=== PATIENT | male | born 1945 | race Caucasian/White ===

== ENCOUNTER → 2016-09-13 | Outpatient (CLI) | payer MEDICARE, OTHER ==
[2016-09-13 15:11] LABS: ABSOLUTE BASOPHILS # (AUTO) 0.1 10^3/uL (0.0-0.2); ABSOLUTE EOSINOPHILS # (AUTO) 0.6 10^3/uL (0.0-0.6); ABSOLUTE LYMPHOCYTES (AUTO) 1.6 10^3/uL (0.5-4.7); ABSOLUTE MONOCYTES (AUTO) 0.6 10^3/uL (0.1-1.4); ABSOLUTE NEUT (AUTO) 3.7 10^3/uL (1.7-8.2); BASOPHILS % (AUTO) 0.9 % (0-2); EOSINOPHILS % (AUTO) 8.4 % (0-6); HEMATOCRIT 28.8 % (37.9-51.0); HEMOGLOBIN 9.3 g/dL (13.5-17.0); HGB HCT DIFFERENCE -0.9; LYMPHOCYTES % (AUTO) 24.9 % (13-45); MEAN CORPUSCULAR HEMOGLOBIN 29.1 pg (27.0-33.4); MEAN CORPUSCULAR HGB CONC 32.2 g/dL (32.0-36.0); MEAN CORPUSCULAR VOLUME 90 fl (80-97); MONOCYTES % (AUTO) 9.5 % (3-13); RED BLOOD COUNT 3.18 10^6/uL (4.35-5.55); RED CELL DISTRIBUTION WIDTH 14.9 % (11.5-14.0); SEGMENTED NEUTROPHILS % (AUTO) 56.3 % (42-78); WHITE BLOOD COUNT 6.6 10^3/uL (4.0-10.5)
[2016-09-13 15:26] LABS: ANION GAP 10 (5-19); BLOOD UREA NITROGEN 28 mg/dL (7-20); CALCIUM 9.5 mg/dL (8.4-10.2); CARBON DIOXIDE 25 mmol/L (22-30); CHLORIDE 105 mmol/L (98-107); GLUCOSE 98 mg/dL (75-110); POTASSIUM 5.2 mmol/L (3.6-5.0); SODIUM 139.6 mmol/L (137-145)
[2016-09-15 12:38] LABS: CREATININE URINE 107.3 mg/dL (Not Estab.)
== END ==
LOC: OD 14:18
PROVIDERS: ATTEND Internal Medicine Nephrology
DX: N18.4 Chronic kidney disease, stage 4 (severe) (principal); D63.1 Anemia in chronic kidney disease; N25.81 Secondary hyperparathyroidism of renal origin
CPT/HCPCS: 36415; 80048; 82570; 83970; 84156; 85025

== ENCOUNTER → 2017-01-06 | Outpatient (CLI) | payer MEDICARE, OTHER ==
[2017-01-06 17:43] LABS: ABSOLUTE BASOPHILS # (AUTO) 0.1 10^3/uL (0.0-0.2); ABSOLUTE EOSINOPHILS # (AUTO) 0.6 10^3/uL (0.0-0.6); ABSOLUTE LYMPHOCYTES (AUTO) 1.2 10^3/uL (0.5-4.7); ABSOLUTE MONOCYTES (AUTO) 0.7 10^3/uL (0.1-1.4); ABSOLUTE NEUT (AUTO) 5.7 10^3/uL (1.7-8.2); BASOPHILS % (AUTO) 0.7 % (0-2); EOSINOPHILS % (AUTO) 6.8 % (0-6); HEMATOCRIT 35.1 % (37.9-51.0); HEMOGLOBIN 11.4 g/dL (13.5-17.0); HGB HCT DIFFERENCE -0.9; MEAN CORPUSCULAR HEMOGLOBIN 28.7 pg (27.0-33.4); MEAN CORPUSCULAR HGB CONC 32.6 g/dL (32.0-36.0); MEAN CORPUSCULAR VOLUME 88 fl (80-97); MONOCYTES % (AUTO) 8.1 % (3-13); RED BLOOD COUNT 3.99 10^6/uL (4.35-5.55); RED CELL DISTRIBUTION WIDTH 13.4 % (11.5-14.0); SEGMENTED NEUTROPHILS % (AUTO) 69.4 % (42-78); WHITE BLOOD COUNT 8.2 10^3/uL (4.0-10.5)
[2017-01-06 17:57] LABS: ANION GAP 13 (5-19); BLOOD UREA NITROGEN 39 mg/dL (7-20); CALCIUM 8.9 mg/dL (8.4-10.2); CARBON DIOXIDE 26 mmol/L (22-30); CHLORIDE 99 mmol/L (98-107); GLUCOSE 95 mg/dL (75-110); POTASSIUM 4.1 mmol/L (3.6-5.0); SODIUM 137.5 mmol/L (137-145)
== END ==
LOC: OD 16:02
PROVIDERS: ATTEND Internal Medicine Nephrology
DX: N18.4 Chronic kidney disease, stage 4 (severe) (principal); D63.1 Anemia in chronic kidney disease; R80.9 Proteinuria, unspecified
CPT/HCPCS: 36415; 80048; 85025

== ENCOUNTER → 2017-01-13 | Outpatient (CLI) | payer MEDICARE, OTHER ==
[2017-01-13 15:25] LABS: ANION GAP 14 (5-19); BLOOD UREA NITROGEN 31 mg/dL (7-20); CALCIUM 9.3 mg/dL (8.4-10.2); CARBON DIOXIDE 26 mmol/L (22-30); CHLORIDE 102 mmol/L (98-107); CREATININE RESULT 5.21 mg/dL (0.52-1.25); GLUCOSE 107 mg/dL (75-110); POTASSIUM 4.8 mmol/L (3.6-5.0); SODIUM 142.2 mmol/L (137-145)
== END ==
LOC: OD 14:01
PROVIDERS: ATTEND Internal Medicine Nephrology
DX: N18.5 Chronic kidney disease, stage 5 (principal); E87.5 Hyperkalemia; N18.6 End stage renal disease
CPT/HCPCS: 36415; 80048; 86704; 86706; 86803; 86804; 87340

== ENCOUNTER 2017-01-17 09:53 | Day surgery (SDC) | payer MEDICARE, OTHER ==
--- NOTE | 2017-01-17 10:22 | PDOC H&P ---
General Chief Complaint: This patient requires hemodialysis for end-stage renal disease. He is therefore referred for insertion of a permacatheter. - Current Medications/Allergies Home Medications: Aspirin/Dipyridamole [Aggrenox 25 mg/200 mg Capsule SA] 1 cap.sr PO DAILY Cholecalciferol (Vitamin D3) [Vitamin D3 1000 Unit Tablet] 1,000 unit PO ASDIR PRN 05/11/13 Esomeprazole Magnesium [Nexium] 40 mg PO DAILY 05/11/13 Ezetimibe [Zetia 10 Mg Tablet] 10 mg PO DAILY 05/11/13 Ferrous Sulfate [Feosol] 325 mg PO DAILY 02/24/15 Multivit with Calcium,Iron,Min [Multiple Vitamins For Women] 1 each PO DAILY Telmisartan/Hydrochlorothiazid [Micardis HCT 40-12.5 mg Tablet] 1 each PO DAILY 02/24/15 Allergies/Adverse Reactions: aspirin [Aspirin] Allergy (Intermediate, Verified 02/24/15 12:22) ITCHING atorvastatin calcium [From Lipitor] Adverse Reaction (Intermediate, Verified 12:22) MUSCLE CRAMPS, ITCHING rosuvastatin calcium [From Crestor] Adverse Reaction (Intermediate, Verified 12:22) MUSCLE CRAMPS, ITCHING Past Medical History Cardiac Medical History: Reports: Hyperlipidema, Hypertension Denies: Coronary Artery Disease, Myocardial Infarction Pulmonary Medical History: Reports: Chronic Obstructive Pulmonary Disease (COPD) Denies: Asthma, Bronchitis, Pneumonia Neurological Medical History: Denies: Seizures Musculoskeltal Medical History: Denies: Arthritis Hematology: Denies: Anemia Family History Family History: CAD Parental Family History Reviewed: No Children Family History Reviewed: No Sibling(s) Family History Reviewed.: No Social History Smoking Status: Former Smoker Frequency of Alcohol Use: None Hx Recreational Drug Use: No Hx Prescription Drug Abuse: No Physical Exam Vital Signs: Intake & Output 01/16/17 01/17/17 01/18/17 06:59 06:59 06:59 Weight 78.471 kg Additional comments: Constitutional: Well-developed well-nourished gentleman. No apparent acute distress. Eyes: Mucous membranes pink and moist, pupils equal and reactive to light. Conjunctiva normal. Senilis noted. ENT: Hearing grossly normal. External pinna normal to inspection. Teeth missing, edentulous. Tongue normal to inspection. Chest: Normal to inspection. Cardiac: Heart sounds 1 and 2 normal, no murmurs. No carotid bruit. Respiratory breath sounds are present bilaterally, normal. Normal respiratory effort. Skin: Normal to inspection. No ulcers, normal turgor. Psychiatric: Judgment, memory, insight seem normal. Mood is pleasant and appropriate. Extremities: Upper extremities show normal range of movement. Pulses present noted to the radial arteries. Capillary refill normal. No cyanosis noted. No muscle wasting noted. . Impression/Plan Impression: 1 end-stage renal disease requiring hemodialysis. 2. COPD. 3. Hypertension.
[2017-01-17] MEDS ORDERED: BACITRACIN INJ 50,000 UNIT VIAL IR PRN (10:33)
[2017-01-17] MEDS ORDERED: MIDAZOLAM 2 MG/2 ML INJ ONE (10:35)
[2017-01-17] MEDS ORDERED: FENTANYL CITRATE INJ/PF 100 MCG/2 ML AMPUL ONE (10:35)
[2017-01-17] MEDS ORDERED: OXYCODONE-ACETAMINOPHEN 5-325 MG TABLET PO PRN (10:39)
[2017-01-17] MEDS ORDERED: DIAZEPAM 5 MG TABLET PO PRN (10:40)
[2017-01-17] MEDS ORDERED: CEFAZOLIN 1 GM/D5W RTU 1 GM/50 ML RTUPB IV ONE (10:52)
[2017-01-17 10:56] LABS: HEMATOCRIT 35.4 % (37.9-51.0); HEMOGLOBIN 11.3 g/dL (13.5-17.0); HGB HCT DIFFERENCE -1.5; MEAN CORPUSCULAR HEMOGLOBIN 28.4 pg (27.0-33.4); MEAN CORPUSCULAR VOLUME 89 fl (80-97); RED CELL DISTRIBUTION WIDTH 13.8 % (11.5-14.0); WHITE BLOOD COUNT 8.9 10^3/uL (4.0-10.5)
--- NOTE | 2017-01-17 11:02 | RADIOLOGY REPORT (SQ) ---
EXAM DESCRIPTION: CHEST SINGLE VIEW COMPLETED DATE/TIME: 01/17/2017 10:51 am REASON FOR STUDY: PRE OP- PACU 12 COMPARISON: 05/11/2013 EXAM PARAMETERS: NUMBER OF VIEWS: One view. TECHNIQUE: Single frontal radiographic view of the chest acquired. RADIATION DOSE: NA LIMITATIONS: None. FINDINGS: LUNGS AND PLEURA: No opacities, masses or pneumothorax. No pleural effusion. MEDIASTINUM AND HILAR STRUCTURES: No masses. Contour normal. HEART AND VASCULAR STRUCTURES: Heart normal in size. Normal vasculature. BONES: No acute findings. HARDWARE: None in the chest. OTHER: No other significant finding. IMPRESSION: NO ACUTE RADIOGRAPHIC FINDING IN THE CHEST. TECHNICAL DOCUMENTATION: JOB ID: [id number]
[2017-01-17 11:11] LABS: ANION GAP 14 (5-19); BLOOD UREA NITROGEN 32 mg/dL (7-20); CALCIUM 8.9 mg/dL (8.4-10.2); CARBON DIOXIDE 23 mmol/L (22-30); CHLORIDE 104 mmol/L (98-107); CREATININE RESULT 5.11 mg/dL (0.52-1.25); GLUCOSE 97 mg/dL (75-110); POTASSIUM 4.7 mmol/L (3.6-5.0); SODIUM 140.6 mmol/L (137-145)
[2017-01-17] MEDS ORDERED: LIDOCAINE 0.5% INJ-PF (5 MG/ML) 50 ML SDV ONE (11:22)
--- NOTE | 2017-01-17 12:44 | EKG REPORT ---
SEVERITY:- BORDERLINE ECG - SINUS RHYTHM BORDERLINE T WAVE ABNORMALITIES : Confirmed by: Liana Knowles MD 17-Jan-2017 12:43:39
--- NOTE | 2017-01-17 12:49 | PDOC DISCHARGE SUMMARY ---
Discharge Summary (SDC) - Discharge Final Diagnosis: #1 end-stage renal disease. 2. COPD. 3. Hypertension. Date of Surgery: 01/17/17 Discharge Date: 01/17/17 Condition: Fair Treatment or Instructions: Discharge home [after recovery per ASU criteria]. Diet , [renal],as tolerated, when fully awake advance as tolerated. Activities within moderation encouraged. Follow up in my office by appointment in about [1 week]. Call for appointment. Leave wounds [covered], [keep clean and dry, until office visit in 1 week]. Hold of on school/work [until evaluation in office]. May shower [in 48 hrs], [try to keep operated area as dry as possible]. Discharge Diet: Other (Comments) - Renal Respiratory Treatments at Home: Deep Breathing/Coughing Discharge Activity: Activity As Tolerated Report the Following to Your Physician Immediately: Shortness of Breath, Unusual Bleeding
--- NOTE | 2017-01-17 12:52 | Operative Report ---
Operative Report DATE OF SURGERY: 01/17/17 PREOPERATIVE DIAGNOSIS: #1 end-stage renal disease. 2. COPD. 3. Hypertension. POSTOPERATIVE DIAGNOSIS: #1 end-stage renal disease. Post PermCath insertion. 2. COPD. 3. Hypertension. OPERATION: 1. Ultrasound evaluation and real-time access in the right internal jugular vein. 2. Port-A-Cath insertion via real-time axis in the right internal jugular vein. 3. Angiogram and interpretation SURGEON: JAIMEE MCCONNELL SALAD CHEF: None ANESTHESIA: Moderate Sedation TISSUE REMOVED OR ALTERED: Not applicable. COMPLICATIONS: None ESTIMATED BLOOD LOSS: 2 mL. INTRAOPERATIVE FINDINGS: An approximately 1.5 cm diameter internal jugular vein. Satisfactory to support PermCath catheter. Good position of the catheter with the tip down in the right atrium. Easy egress of blood and ingress of heparinized solution through both ports. The right atrium was somewhat on the small side. smooth flow of contrast through the right atrium, ventricle and pulmonary outflow tract noted. PROCEDURE: After obtaining informed consent, the patient was taken to the [facility] and positioned supine. The right neck and chest were prepared with chlorhexidine and draped out with sterile linen. After the " universal timeout", in which it was verified that the patient continued to receive antibiotic, the procedure commenced. A steriley sheathed ultrasound probe was used to evaluate the right internal jugular vein. Local anesthesia was infiltrated adjacent to the probe. Access into the right internal jugular vein was obtained using a micropuncture needle, followed by micropuncture wire and then a micropuncture catheter. This was followed by introduction of a 0.035 guidewire the tip of which was placed down into the inferior vena cava . A 23 cm long split catheter was now positioned over the chest and an exit site marked and locally anesthetized ,the catheter was placed between the 2 incisions. Proximally, the catheter was now positioned using a peel-away sheath, after dilation. Easy ingress of heparinized solution and egress of blood obtained through both ports. A completion angiogram was done by injecting contrast. The findings were as dictated. The neck incision was now closed using interrupted 3-0 PDS to the subcutaneous tissues, the catheter was anchored at the exit site using 3- 0 PDS. A Biopatch device was now placed adjacent to the catheter. Dressings were applied and the procedure concluded. Exposure time: 0.5 minutes. Exposure: 0.36 mcg/cm.. Contrast amount: 5 mL of Hokofe-T-170 low osmolality. Copies of the dictated operative report for Dr. Jaimee Winter MD.concluded. Copies of the dictated operative report for Dr. Jaimee Winter MD.
--- NOTE | 2017-01-17 13:45 | RADIOLOGY REPORT (SQ) ---
EXAM DESCRIPTION: TUNNELED CENTRAL LINE; GUIDANCE FLUOROSCOPIC COMPLETED DATE/TIME: 01/17/2017 1:22 pm REASON FOR STUDY: N18.5 N18.5 CHRONIC KIDNEY DISEASE, STAGE 5 E87.5 HYPERKALEMIA COMPARISON: AP chest 01/25/2017 FLUOROSCOPY TIME: 0.5 minutes 1 series of digital cine images saved to PACS. TECHNIQUE: Intra-operative images acquired during surgical procedure to evaluate progress. NUMBER OF IMAGES: Cine fluoroscopic images. LIMITATIONS: None. FINDINGS: Intra procedural imaging and fluoro during central line placement by Dr. Winter. Please see his operative report for further detail IMPRESSION: Intra procedural imaging and fluoro COMMENT: Quality ID [id number]: Final reports for procedures using fluoroscopy that document radiation exp osure indices, or exposure time and number of fluorographic images (if radiation exposure indices are not available) Please consult full operative report of the attending physician for description of the procedure. TECHNICAL DOCUMENTATION: JOB ID: [id number] [employer]- All Rights Reserved
--- NOTE | 2017-01-17 13:45 | RADIOLOGY REPORT (SQ) ---
EXAM DESCRIPTION: TUNNELED CENTRAL LINE; GUIDANCE FLUOROSCOPIC COMPLETED DATE/TIME: 01/17/2017 1:22 pm REASON FOR STUDY: N18.5 N18.5 CHRONIC KIDNEY DISEASE, STAGE 5 E87.5 HYPERKALEMIA COMPARISON: AP chest 01/25/2017 FLUOROSCOPY TIME: 0.5 minutes 1 series of digital cine images saved to PACS. TECHNIQUE: Intra-operative images acquired during surgical procedure to evaluate progress. NUMBER OF IMAGES: Cine fluoroscopic images. LIMITATIONS: None. FINDINGS: Intra procedural imaging and fluoro during central line placement by Dr. Winter. Please see his operative report for further detail IMPRESSION: Intra procedural imaging and fluoro COMMENT: Quality ID 145: Final reports for procedures using fluoroscopy that document radiation exp osure indices, or exposure time and number of fluorographic images (if radiation exposure indices are not available) Please consult full operative report of the attending physician for description of the procedure. TECHNICAL DOCUMENTATION: JOB ID: [id number] [employer]- All Rights Reserved
[2017-01-17] MEDS ORDERED: ONDANSETRON 4 MG TAB.RAPDIS ONE (14:23)
--- NOTE | 2017-01-17 14:57 | RADIOLOGY REPORT (SQ) ---
EXAM DESCRIPTION: CHEST SINGLE VIEW COMPLETED DATE/TIME: 01/17/2017 12:57 pm REASON FOR STUDY: s/p permanent cath insertion COMPARISON: AP chest 01/17/2017, 05/11/2013 EXAM PARAMETERS: NUMBER OF VIEWS: One view. TECHNIQUE: Single frontal radiographic view of the chest acquired. RADIATION DOSE: NA LIMITATIONS: None. FINDINGS: LUNGS AND PLEURA: No opacities, masses or pneumothorax. No pleural effusion. MEDIASTINUM AND HILAR STRUCTURES: No masses. Contour normal. HEART AND VASCULAR STRUCTURES: Heart normal in size. Normal vasculature. BONES: No acute findings. HARDWARE: New right-sided central venous dialysis catheter with the tip in the right atrium. No pneu mothorax. OTHER: No other significant finding. IMPRESSION: New right-sided central venous dialysis catheter with the tip in the right atrium. No p neumothorax. TECHNICAL DOCUMENTATION: JOB ID: [id number]
[2017-01-17] MEDS ORDERED: ONDANSETRON 4 MG TAB.RAPDIS PO ONE (15:30)
[2017-01-17 16:51] VITALS: BP 168/103
== END 2017-01-17 15:00 | disposition home or self-care (01) ==
LOC: CCL 09:53
PROVIDERS: ATTEND Surgery
PROC: 05HM33Z Insertion of Infusion Device into Right Internal Jugular Vein, Percutaneous Approach (ICD-10-PCS; principal; 2017-01-17)
DX: I12.0 Hypertensive chronic kidney disease with stage 5 chronic kidney disease or end stage renal disease (principal); N18.6 End stage renal disease; Z99.2 Dependence on renal dialysis; J44.9 Chronic obstructive pulmonary disease, unspecified; E78.5 Hyperlipidemia, unspecified; Z79.82 Long term (current) use of aspirin; Z79.899 Other long term (current) drug therapy; Z88.6 Allergy status to analgesic agent; Z88.8 Allergy status to other drugs, medicaments and biological substances; Z87.891 Personal history of nicotine dependence
CPT/HCPCS: 36415; 85027; 80048; 36558; 76937; 77001; 71010; 93005; 93010; C1752; Q9967; J2250; J3490 ×2; J0690; A9270 ×3; J3010; J1644; S0119

== ENCOUNTER 2017-02-02 09:16 | Day surgery (SDC) | payer MEDICARE, OTHER ==
[2017-02-02 09:56] LABS: HEMATOCRIT 33.9 % (37.9-51.0); HEMOGLOBIN 11.1 g/dL (13.5-17.0); HGB HCT DIFFERENCE -0.6; MEAN CORPUSCULAR HEMOGLOBIN 28.7 pg (27.0-33.4); MEAN CORPUSCULAR HGB CONC 32.7 g/dL (32.0-36.0); MEAN CORPUSCULAR VOLUME 88 fl (80-97); RED BLOOD COUNT 3.85 10^6/uL (4.35-5.55); RED CELL DISTRIBUTION WIDTH 14.7 % (11.5-14.0); WHITE BLOOD COUNT 10.1 10^3/uL (4.0-10.5)
--- NOTE | 2017-02-02 10:08 | RADIOLOGY REPORT (SQ) ---
EXAM DESCRIPTION: CHEST SINGLE VIEW COMPLETED DATE/TIME: 02/02/2017 9:42 am REASON FOR STUDY: PRE-OP COMPARISON: AP CHEST 01/17/2017, 05/11/2013 EXAM PARAMETERS: NUMBER OF VIEWS: One view. TECHNIQUE: Single frontal radiographic view of the chest acquired. RADIATION DOSE: NA LIMITATIONS: None. FINDINGS: LUNGS AND PLEURA: No opacities, masses or pneumothorax. No pleural effusion. MEDIASTINUM AND HILAR STRUCTURES: No masses. Contour normal. HEART AND VASCULAR STRUCTURES: Heart normal in size. Normal vasculature. BONES: No acute findings. HARDWARE: None in the chest. OTHER: No other significant finding. IMPRESSION: NO ACUTE RADIOGRAPHIC FINDING IN THE CHEST. TECHNICAL DOCUMENTATION: JOB ID: [id number]
[2017-02-02 10:17] LABS: ANION GAP 13 (5-19); BLOOD UREA NITROGEN 25 mg/dL (7-20); CALCIUM 9.3 mg/dL (8.4-10.2); CARBON DIOXIDE 24 mmol/L (22-30); CHLORIDE 104 mmol/L (98-107); CREATININE RESULT 4.78 mg/dL (0.52-1.25); GLUCOSE 105 mg/dL (75-110); POTASSIUM 4.2 mmol/L (3.6-5.0); SODIUM 141.2 mmol/L (137-145)
[2017-02-02] MEDS ORDERED: BACITRACIN INJ 50,000 UNIT VIAL ONE (10:17)
[2017-02-02] MEDS ORDERED: BUPIVACAINE HCL 0.25 % INJ/PF (2.5 MG/1 ML) 30 ML VIAL ONE (10:17)
[2017-02-02] MEDS ORDERED: LIDOCAINE 0.5% INJ-PF (5 MG/ML) 50 ML SDV ONE (10:17)
--- NOTE | 2017-02-02 16:48 | PDOC H&P ---
General Chief Complaint: Patient's existing hemodialysis access, a PermCath came out overnight. He needs hemodialysis in the morning and presents for placement of a catheter. - Current Medications/Allergies Home Medications: Aspirin/Dipyridamole [Aggrenox 25 mg/200 mg Capsule SA] 1 cap.sr PO DAILY Cholecalciferol (Vitamin D3) [Vitamin D3 1000 Unit Tablet] 1,000 unit PO ASDIR PRN 05/11/13 Esomeprazole Magnesium [Nexium] 40 mg PO DAILY 05/11/13 Ezetimibe [Zetia 10 mg Tablet] 10 mg PO DAILY 05/11/13 Ferrous Sulfate [Feosol] 325 mg PO DAILY 02/24/15 Multivit with Calcium,Iron,Min [Multiple Vitamins For Women] 1 each PO DAILY Amlodipine Besylate 1 tab PO DAILY 01/17/17 Bimatoprost [Lumigan 0.01% Oph Soln 2.5 ml/Bottle] 1 applic BTH_EYE TID Diclofenac Sodium [Voltaren] 1 appful TOP PRN PRN 01/17/17 Mycophenolate Mofetil [Cellcept] 1 tab PO BID 01/17/17 Pitavastatin Calcium [Livalo] 1 tab PO HSP PRN 01/17/17 Sodium Bicarbonate [Sodium Bicarbonate 650 mg Tablet] 1 tab PO BID 01/17/17 Ondansetron HCl [Zofran 4 mg Tablet] 4 mg PO PRN PRN 02/02/17 Allergies/Adverse Reactions: aspirin [Aspirin] Allergy (Intermediate, Verified 02/24/15 12:22) ITCHING atorvastatin calcium [From Lipitor] Adverse Reaction (Intermediate, Verified 12:22) MUSCLE CRAMPS, ITCHING rosuvastatin calcium [From Crestor] Adverse Reaction (Intermediate, Verified 12:22) MUSCLE CRAMPS, ITCHING Past Medical History Cardiac Medical History: Reports: Hyperlipidema, Hypertension Denies: Coronary Artery Disease, Myocardial Infarction Pulmonary Medical History: Reports: Chronic Obstructive Pulmonary Disease (COPD) Denies: Asthma, Bronchitis, Pneumonia Neurological Medical History: Denies: Seizures Musculoskeltal Medical History: Denies: Arthritis Hematology: Denies: Anemia Family History Family History: CAD Parental Family History Reviewed: No Children Family History Reviewed: No Sibling(s) Family History Reviewed.: No Social History Smoking Status: Never Smoker Frequency of Alcohol Use: None Hx Recreational Drug Use: No Hx Prescription Drug Abuse: No Physical Exam Vital Signs: Temp Pulse Resp BP Pulse Ox 99.0 F 75 16 163/90 H 98 02/02/17 16:20 02/02/17 16:20 02/02/17 16:20 02/02/17 16:20 02/02/17 16:20 Intake & Output 02/01/17 02/02/17 02/03/17 06:59 06:59 06:59 Intake Total 30 Balance 30 Weight 74.84 kg Additional comments: Constitutional: Well-developed well-nourished gentleman. No apparent acute distress. Eyes: Mucous membranes pink and moist, pupils equal and reactive to light. Conjunctiva normal. Cornea normal. ENT: Hearing grossly normal. External pinna normal to inspection. Some teeth missing tongue normal to inspection. Cardiac: Heart sounds 1 and 2 normal, no murmurs. Respiratory breath sounds are present bilaterally, normal. Normal respiratory effort. Skin: Normal to inspection. No ulcers, normal turgor. Psychiatric: Judgment, memory, insight seem normal. Mood is pleasant and appropriate. Extremities: Upper extremities show normal range of movement. Pulses present noted to the radial arteries. Capillary refill normal. No cyanosis noted. No muscle wasting noted. . Impression/Plan Impression: 1 end-stage renal disease on hemodialysis. 2. COPD. 3. Hypertension. Plan: Insertion of a new PermCath catheter. Probably on the left side given the previous most one was on the right. The procedure, its risks, benefits, expected outcome and alternatives are familiar to the patient.
[2017-02-02] MEDS ORDERED: PROPOFOL INJ 200 MG/20 ML VIAL IV ONE (16:51)
[2017-02-02] MEDS ORDERED: MIDAZOLAM 2 MG/2 ML INJ ONE (16:51)
[2017-02-02] MEDS ORDERED: FENTANYL CITRATE INJ/PF 100 MCG/2 ML AMPUL ONE (16:51)
[2017-02-02] MEDS ORDERED: CEFAZOLIN INJ 1 GM VIAL ONE (17:14)
[2017-02-02] MEDS ORDERED: OXYCODONE-ACETAMINOPHEN 5-325 MG TABLET PO PRN ×2 (17:17)
[2017-02-02] MEDS ORDERED: FENTANYL CITRATE INJ/PF 100 MCG/2 ML AMPUL IV PRN ×3 (17:17)
[2017-02-02] MEDS ORDERED: MEPERIDINE HCL/PF INJ 25 MG/1 ML DISP.SYRIN IV PRN (17:17)
[2017-02-02] MEDS ORDERED: MORPHINE SULFATE 10 MG/ML INJ IV PRN (17:17)
[2017-02-02] MEDS ORDERED: PROMETHAZINE HCL INJ 25 MG/1 ML VIAL IV PRN ×2 (17:17)
[2017-02-02] MEDS ORDERED: DIPHENHYDRAMINE HCL 50 MG/ML VIAL IV PRN (17:17)
--- NOTE | 2017-02-02 17:43 | PDOC DISCHARGE SUMMARY ---
Discharge Summary (SDC) - Discharge Final Diagnosis: 1 end-stage renal disease on hemodialysis. 2. COPD. 3. Hypertension Date of Surgery: 02/02/17 Discharge Date: 02/02/17 Condition: Fair Treatment or Instructions: Discharge home [after recovery per ASU criteria]. Diet , [renal],as tolerated, when fully awake advance as tolerated. Activities within moderation encouraged. Follow up in my office by appointment in about [1 week]. Call for appointment. Leave wounds [covered], [keep clean and dry, until office visit in 1 week]. Hold of on school/work [until evaluation in office]. May shower [in 48 hrs], [try to keep operated area as dry as possible]. Important not to lie flat for 48 hours. Seated position is best to reduce the risk of bleeding. Discharge Diet: Other (Comments) - Renal Respiratory Treatments at Home: Deep Breathing/Coughing Discharge Activity: Activity As Tolerated Report the Following to Your Physician Immediately: Shortness of Breath, Unusual Bleeding
--- NOTE | 2017-02-02 17:46 | Operative Report ---
Operative Report DATE OF SURGERY: 02/02/17 PREOPERATIVE DIAGNOSIS: 1 end-stage renal disease on hemodialysis. 2. COPD. 3. Hypertension POSTOPERATIVE DIAGNOSIS: 1 end-stage renal disease on hemodialysis. 2. COPD. 3. Hypertension OPERATION: 1. Ultrasound evaluation of the left internal jugular vein. 2. Real-time insertion of permacatheter via left internal jugular vein. 3 angiogram interpretation. SURGEON: JAIMEE MCCONNELL CHILD CARE LEAD TEACHER: None ANESTHESIA: LMAC TISSUE REMOVED OR ALTERED: Not applicable COMPLICATIONS: None ESTIMATED BLOOD LOSS: 5 mL. INTRAOPERATIVE FINDINGS: Of a satisfactory left internal jugular vein, estimated to be 1.5 cm in diameter. Satisfactory access. Good position of the catheter with the tip in about the middle of the right atrial pool. Satisfactory flow of contrast to the right atrium, ventricle and pulmonary outflow tract. Easy egress of blood and ingress of heparinized solution through both ports. The catheter was firmly anchored using 3-0 PDS. PROCEDURE: After obtaining informed consent, the patient was taken to the operating room and positioned supine. The left neck and chest were prepared with chlorhexidine and draped out with sterile linen. After the " universal timeout ", in which it was verified that the patient continued to receive antibiotic, the procedure commenced. A steriley sheathed ultrasound probe was used to evaluate the left internal jugular vein. Local anesthesia was infiltrated adjacent to the probe. Access into the right internal jugular vein was obtained using a micropuncture needle, followed by micropuncture wire and then a micropuncture catheter. This was followed by introduction of a 0.035 guidewire the tip of which was placed down into the inferior vena cava . A 23 cm long split catheter was now positioned over the chest and an exit site marked and locally anesthetized ,the catheter was placed between the 2 incisions. Proximally, the catheter was now positioned using a peel-away sheath, after dilation. Easy ingress of heparinized solution and egress of blood obtained through both ports. A completion angiogram was done by injecting contrast. The findings were as dictated. The neck incision was now closed using interrupted 3-0 PDS to the subcutaneous tissues, the catheter was anchored at the exit site using 3-0 PDS. A Biopatch device was now placed adjacent to the catheter. Dressings were applied and the procedure concluded. Copies of the dictated operative report for Dr. Jaimee Winter MD.concluded. Copies of the dictated operative report for Dr. Jaimee Winter MD.
--- NOTE | 2017-02-02 18:35 | RADIOLOGY REPORT (SQ) ---
EXAM DESCRIPTION: CHEST SINGLE VIEW COMPLETED DATE/TIME: 02/02/2017 6:15 pm REASON FOR STUDY: check permacath placement COMPARISON: 02/02/2017 EXAM PARAMETERS: NUMBER OF VIEWS: One view. TECHNIQUE: Single frontal radiographic view of the chest acquired. RADIATION DOSE: NA LIMITATIONS: None. FINDINGS: LUNGS AND PLEURA: No new opacities, masses or pneumothorax. No pleural effusion. MEDIASTINUM AND HILAR STRUCTURES: No masses. Contour normal. HEART AND VASCULAR STRUCTURES: Heart stable in size. Normal vasculature. BONES: No acute findings. HARDWARE: Interval placement left-sided PermCath with tip in the caval atrial junction. OTHER: No other significant finding. IMPRESSION: SATISFACTORY PLACEMENT LEFT-SIDED PERMCATH WITHOUT COMPLICATION IDENTIFIED. TECHNICAL DOCUMENTATION: JOB ID: [id number]
[2017-02-02 19:25] VITALS: BP 142/80
--- NOTE | 2017-02-02 20:25 | RADIOLOGY REPORT (SQ) ---
EXAM DESCRIPTION: FLUORO/CV PLACEMENT COMPLETED DATE/TIME: 02/02/2017 7:56 pm REASON FOR STUDY: PERMCATH T82.49XA OTH COMPLICATION OF VASCULAR DIALYSIS CATHETER, INI COMPARISON: None. FLUOROSCOPY TIME: 1.0 minutes 3 images saved to PACS. TECHNIQUE: Intra-operative images acquired during surgical procedure to evaluate progress. NUMBER OF IMAGES: 3 LIMITATIONS: None. FINDINGS: Fluoroscopy was provided for intraoperative procedure. Please refer to the operative repo rt for further discussion. IMPRESSION: IMAGE(S) OBTAINED DURING PROCEDURE. COMMENT: Quality ID [id number]: Final reports for procedures using fluoroscopy that document radiation exp osure indices, or exposure time and number of fluorographic images (if radiation exposure indices are not available) Please consult full operative report of the attending physician for description of the procedure. TECHNICAL DOCUMENTATION: JOB ID: [id number] [employer]- All Rights Reserved
== END 2017-02-02 19:15 | disposition home or self-care (01) ==
LOC: OROUT 09:16
PROVIDERS: ATTEND Surgery
PROC: 05HM33Z Insertion of Infusion Device into Right Internal Jugular Vein, Percutaneous Approach (ICD-10-PCS; principal; 2017-02-02 11:45)
DX: T82.49XA Other complication of vascular dialysis catheter, initial encounter (principal); Y83.2 Surgical operation with anastomosis, bypass or graft as the cause of abnormal reaction of the patient, or of later complication, without mention of misadventure at the time of the procedure; I12.0 Hypertensive chronic kidney disease with stage 5 chronic kidney disease or end stage renal disease; N18.6 End stage renal disease; Z99.2 Dependence on renal dialysis; E78.5 Hyperlipidemia, unspecified; J44.9 Chronic obstructive pulmonary disease, unspecified; M19.90 Unspecified osteoarthritis, unspecified site; D64.9 Anemia, unspecified; Z79.82 Long term (current) use of aspirin; Z79.899 Other long term (current) drug therapy; Z88.8 Allergy status to other drugs, medicaments and biological substances
CPT/HCPCS: 36558; 36415; 85027; 80048; 71010; 77001; C1752; Q9967; J2250; J3490 ×2; J0690; J3010; J2704; J1644; 532

== ENCOUNTER 2017-04-04 05:43 | Day surgery (SDC) | payer MEDICARE, OTHER ==
--- NOTE | 2017-03-31 11:39 | RADIOLOGY REPORT (SQ) ---
EXAM DESCRIPTION: CHEST PA/LATERAL COMPLETED DATE/TIME: 03/31/2017 11:21 am REASON FOR STUDY: PRE-OP COMPARISON: 02/02/2017 EXAM PARAMETERS: NUMBER OF VIEWS: two views TECHNIQUE: Digital Frontal and Lateral radiographic views of the chest acquired. RADIATION DOSE: NA LIMITATIONS: none FINDINGS: LUNGS AND PLEURA: A 10 mm nodule is seen posteriorly on lateral view. There appear to be some small granulomas in the right lower lung field. There is no infiltrate or effusion. MEDIASTINUM AND HILAR STRUCTURES: No masses or contour abnormalities. HEART AND VASCULAR STRUCTURES: Heart normal size. No evidence for failure. BONES: No acute findings. HARDWARE: A dual lumen catheter is present with the tip of the catheter in the superior vena cava. OTHER: No other significant finding. IMPRESSION: 1. No acute cardiopulmonary disease. 2. Nodularity as described. TECHNICAL DOCUMENTATION: JOB ID: [id number] [employer]- All Rights Reserved
[2017-03-31 12:03] LABS: HEMATOCRIT 37.6 % (37.9-51.0); HEMOGLOBIN 12.5 g/dL (13.5-17.0); HGB HCT DIFFERENCE -0.1; MEAN CORPUSCULAR HEMOGLOBIN 30.8 pg (27.0-33.4); MEAN CORPUSCULAR HGB CONC 33.1 g/dL (32.0-36.0); MEAN CORPUSCULAR VOLUME 93 fl (80-97); RED BLOOD COUNT 4.05 10^6/uL (4.35-5.55); RED CELL DISTRIBUTION WIDTH 16.3 % (11.5-14.0); WHITE BLOOD COUNT 7.3 10^3/uL (4.0-10.5)
[2017-03-31 12:30] LABS: ANION GAP 16 (5-19); BLOOD UREA NITROGEN 24 mg/dL (7-20); CALCIUM 9.7 mg/dL (8.4-10.2); CARBON DIOXIDE 29 mmol/L (22-30); CHLORIDE 100 mmol/L (98-107); CREATININE RESULT 5.03 mg/dL (0.52-1.25); GLUCOSE 89 mg/dL (75-110); POTASSIUM 4.3 mmol/L (3.6-5.0); SODIUM 144.5 mmol/L (137-145)
--- NOTE | 2017-03-31 22:05 | EKG REPORT ---
SEVERITY:- NORMAL ECG - SINUS RHYTHM : Confirmed by: Jason Bundy 31-Mar-2017 22:04:19
[~2017-04-04 05:43] MED LIST: CEFAZOLIN 1 GM/D5W RTU 1 GM/50 ML RTUPB IV PRN; NORMAL SALINE 1000 ML 1,000 ML IV PRN
[2017-04-04 06:47] LABS: PROTHROMBIN TIME 13.7 SEC (11.4-15.4)
[2017-04-04 06:48] LABS: PARTIAL THROMBOPLASTIN TIME 34.3 SEC (23.5-35.8)
[2017-04-04] MEDS ORDERED: KETAMINE HCL INJ 500 MG/10 ML VIAL ONE (06:53)
[2017-04-04] MEDS ORDERED: FENTANYL CITRATE INJ/PF 100 MCG/2 ML AMPUL ONE (06:53)
[2017-04-04] MEDS ORDERED: PROPOFOL INJ 200 MG/20 ML VIAL IV ONE (06:54)
[2017-04-04] MEDS ORDERED: MIDAZOLAM 2 MG/2 ML INJ ONE (06:54)
[2017-04-04] MEDS ORDERED: LIDOCAINE 0.5% INJ-PF (5 MG/ML) 50 ML SDV ONE (06:55)
[2017-04-04] MEDS ORDERED: BUPIVACAINE HCL 0.25 % INJ/PF (2.5 MG/1 ML) 30 ML VIAL ONE (06:55)
[2017-04-04] MEDS ORDERED: HEPARIN SOD (PORCINE) 1,000 UNIT/ML 10 ML VIAL ONE (06:55)
[2017-04-04] MEDS ORDERED: LIDOCAINE 1% INJ-PF (10 MG/ML) 30 ML SDV ONE (06:55)
[2017-04-04] MEDS ORDERED: BACITRACIN INJ 50,000 UNIT VIAL ONE (06:55)
[2017-04-04] MEDS ORDERED: NITROGLYCERIN/D5W 0 MG/0 ML RTUINJ IV ONE (08:28)
[2017-04-04] MEDS ORDERED: DIPHENHYDRAMINE HCL 50 MG/ML VIAL IV PRN (09:02)
[2017-04-04] MEDS ORDERED: ONDANSETRON HCL INJ/PF 4 MG/2 ML SDV IV PRN (09:02)
[2017-04-04] MEDS ORDERED: FENTANYL CITRATE INJ/PF 100 MCG/2 ML AMPUL IV PRN ×3 (09:02)
--- NOTE | 2017-04-04 10:19 | PDOC DISCHARGE SUMMARY ---
Discharge Summary (SDC) - Discharge Final Diagnosis: 1. PermCath in place. 2. End-stage renal disease on hemodialysis. 3. History of TIA. 4. Hypertension. Date of Surgery: 04/04/17 Discharge Date: 04/04/17 Condition: Fair Treatment or Instructions: Discharge home [after recovery per ASU criteria]. Diet , [renal],as tolerated, when fully awake advance as tolerated. Activities within moderation encouraged. Follow up in my office by appointment in about [1 week]. Call for appointment. Leave wounds [covered], [keep clean and dry, until office visit in 1 week]. Hold of on school/work [until evaluation in office]. May shower [in 48 hrs], [try to keep operated area as dry as possible]. Prescriptions: Oxycodone HCl/Acetaminophen [Percocet 5-325 mg Tablet] 1 tab PO ASDIR PRN #15 tab PRN Reason: Referrals: TASHIA JUAREZ MD [Primary Care Provider] - Discharge Diet: Other (Comments) - Renal Respiratory Treatments at Home: Deep Breathing/Coughing Discharge Activity: Activity As Tolerated Report the Following to Your Physician Immediately: Shortness of Breath, Unusual Bleeding
--- NOTE | 2017-04-04 10:33 | Operative Report ---
Operative Report DATE OF SURGERY: 04/04/17 PREOPERATIVE DIAGNOSIS: 1. PermCath in place. 2. End-stage renal disease on hemodialysis. 3. History of TIA. 4. Hypertension. POSTOPERATIVE DIAGNOSIS: 1. PermCath in place. Post left forearm radiocephalic fistula insertion. 2. End-stage renal disease on hemodialysis. 3. History of TIA. 4. Hypertension. OPERATION: Insertion of transposed radiocephalic fistula in left forearm. SURGEON: JAIMEE MCCONNELL CRYSTAL CALIBRATOR: LICHA BOWMAN ANESTHESIA: LMAC TISSUE REMOVED OR ALTERED: Not applicable COMPLICATIONS: None ESTIMATED BLOOD LOSS: 5 mL. INTRAOPERATIVE FINDINGS: Of a satisfactory cephalic vein in the forearm easily accepting a 4 mm coronary dilator up to at least 15 cm. The vein is dominantly into the basilic vein with no arm cephalic noted. Also a branch of the deep veins just below the elbow. Quite heavy calcification noted in the radial artery. Fortunately this was circumferential and somewhat patchy. This allowed for finding a relatively soft segment to allow for anastomosis. Satisfactory thrill and bruit at the end of the procedure. Satisfactory inflow slurred waveform, continuous waveform in the fistula and distally more multiphasic waveform. On Doppler evaluation. PROCEDURE: Operative Report PROCEDURE: After reviewing the procedure with the patient, he was taken to the operating room. The patient was sedated and the left upper extremity] prepared with chlorhexidine and draped out with sterile linen. After the "" universal timeout", in which it was verified that the patient [received IV antibiotics] the procedure commenced. The sterilely sheathed ultrasound probe was used to evaluate the left venous and arterial systems, pertinent to the previously done vein mapping. Local anesthesia was infiltrated and a longitudinal incision made over the distal forearm, over the most distal reasonable looking radial artery. Dissection proceeded through the subcutaneous tissues down to the radial artery. This was dissected out proximally and distally for about 2 cm. . Rubber loops were placed on either end. The cephalic vein was now dissected out for a distance of about 6 cm. The patient was given 2500 units of heparin intravenously. The cephalic vein was transected and irrigated with heparinized solution. The distal branches were clipped Coronary dilators were accepted [up to 4 mm]. The artery was controlled proximally and distally with rubber loops, a light vascular clamp was necessary distally as well. The vein was transposed into the arterial incision using a tendon passer. An arteriotomy approximately 1.2 cm in length was made, the artery was irrigated proximally and distally with heparinized solution. The transected vein was now spatulated [using a convenient branch, the so called branch patch technique, it was then anastomosed end to end to side into the radial artery. This was done using a continuous suture of 6-0 Prolene. Controls of the fistula were now released and it was analyzed using a Doppler probe. Hemostasis was secured once optimal function was assured, the wound was irrigated with antibiotic containing solution and closed. Closure was done using interrupted 3-0 PDS for the subcutaneous tissues. The skin was closed, in either wound, using a continuous subcutaneous suture of 4-0 Monocryl which was reinforced with Steri-Strips over benzoin. I then left the operative field and returned with a stethoscope covered with a sterile Tegaderm dressing. This allowed external auscultation of the fistula. Auscultation was [satisfactory]. The procedure was concluded by applying a Kerlix dressing over the surgical site. DICTATING PHYSICIAN: JAIMEE LEWIS M.D.
[2017-04-04 12:44] VITALS: BP 155/81
== END 2017-04-04 11:30 | disposition home or self-care (01) ==
LOC: OROUT 05:43
PROVIDERS: ATTEND Surgery
PROC: 05SF0ZZ Reposition Left Cephalic Vein, Open Approach (ICD-10-PCS; principal; 2017-04-04 08:00)
DX: I12.0 Hypertensive chronic kidney disease with stage 5 chronic kidney disease or end stage renal disease (principal); N18.6 End stage renal disease; Z99.2 Dependence on renal dialysis; Z86.73 Personal history of transient ischemic attack (TIA), and cerebral infarction without residual deficits; Z88.8 Allergy status to other drugs, medicaments and biological substances; Z88.6 Allergy status to analgesic agent; Z79.899 Other long term (current) drug therapy
CPT/HCPCS: 36821; 93005; 36415 ×2; 84132; 85027; 85610; 85730; 80048; 71020; 93010; J2250; J3490 ×3; J0690; J3010; J1644; J2704; 1844

== ENCOUNTER 2017-04-14 21:20 | Emergency (ER) | payer MEDICARE, OTHER ==
[2017-04-14 21:30] VITALS: BP 123/77
--- NOTE | 2017-04-15 00:02 | ER Document Report ---
ED General - General Chief Complaint: Altered Mental Status Stated Complaint: POSSIBLE ALTERED MENTAL STATUS Time Seen by Provider: 04/14/17 23:21 Notes: This is a 72-year-old male who has had a change in his demeanor/mental status. He has a history of end-stage renal disease and receives dialysis on Monday. Also has a history of COPD as he was a prior smoker and multiple TIAs but no prolonged deficits except for seems to shuffle when he gets tired. At the beginning the week on Monday which is 4 days ago he refused to go to dialysis which is on use will for him and he has not missed since he began in January of this year. By Monday which is 2 days ago he started becoming essentially nonverbal would say almost nothing and hold up his hand. Today he was very weak so he presents to the emergency department. He had dialysis today and apparently he was unresponsive for a brief period of time sitting up but not responding, slowly his blood pressure increased from a systolic of 98 but he still was so weak he could not hardly get into the house. There is no focal neurologic symptoms noted. He still was not talking much but is responding. Still this is very different than a week ago when he was oriented 3 would hold normal conversation. He does make urine but this is apparently only about 1 time per day. He has not had any other complaints or recent illness, cough or fever. There has been no trauma. TRAVEL OUTSIDE OF THE [place] IN LAST 30 DAYS: No - Related Data Allergies/Adverse Reactions: aspirin [Aspirin] Allergy (Intermediate, Verified 04/14/17 21:25) ITCHING atorvastatin calcium [From Lipitor] Adverse Reaction (Intermediate, Verified 21:25) MUSCLE CRAMPS, ITCHING rosuvastatin calcium [From Crestor] Adverse Reaction (Intermediate, Verified 21:25) MUSCLE CRAMPS, ITCHING Past Medical History - Social History Smoking Status: Former Smoker Family History: Reviewed & Not Pertinent, CAD - Past Medical History Cardiac Medical History: Reports: Hx Hypercholesterolemia, Hx Hypertension - ON MEDS Denies: Hx Coronary Artery Disease, Hx Heart Attack Pulmonary Medical History: Reports: Hx COPD Denies: Hx Asthma, Hx Bronchitis, Hx Pneumonia Neurological Medical History: Denies: Hx Cerebrovascular Accident, Hx Seizures Renal/ Medical History: Denies: Hx Peritoneal Dialysis Musculoskeltal Medical History: Denies Hx Arthritis - Immunizations Hx Diphtheria, Pertussis, Tetanus Vaccination: No Hx Pneumococcal Vaccination: 07/31/14 Review of Systems - Review of Systems -: Yes All other systems reviewed and negative - Per family as patient has no complaints. Physical Exam - Vital signs Vitals: Temp Pulse Resp BP Pulse Ox 98.7 F 76 20 123/77 98 04/14/17 21:25 04/14/17 21:25 04/14/17 21:25 04/14/17 21:25 04/14/17 21:25 - Notes Notes: GENERAL: VS as per nursing doc. Well-appearing, well-nourished and in no acute distress. Sitting up comfortable with minimal answers. Pleasant HEAD: Atraumatic, normocephalic. EYES: Pupils equal round and reactive to light, extraocular movements intact, sclera anicteric, no conjunctival injection or discharge. ENT: Nares patent, oropharynx clear without exudates. Moist mucous membranes. NECK: Normal range of motion, supple, no carotid bruits. LUNGS: Coarse breath sounds bilaterally. No signs of infection at left subclavian vascular access. HEART: Normal S1S2. Regular rate and rhythm without murmurs. Equal peripheral pulses. ABDOMEN: Soft, non-tender EXTREMITIES: Normal range of motion. No calf tenderness. Negative Homans. Trace edema. NEUROLOGICAL: GCS 15, Cranial nerves II-XII intact. Normal visual laurent. Normal speech without aphasia. No pronator drift. 5/5 RUE strength, 5/5 RLE strength, 5/5 LUE strength, 5/5 LLE strength. No cerebellar abnormalities including normal finger-nose testing. 1+= DTR refelexes. PSYCH: Normal mood, normal affect. Brief answers but will give me his name. Responds "here because I am not talking". SKIN: Warm, Dry, no cyanosis, Cap refill < 2 sec. Course - Re-evaluation Re-evalutation: 04/15/17 03:01 I discussed with the patient's family which include the patient and daughter findings. I do not see anything accounting for the altered mental status or his unresponsive episode today. Discussed with them recommendations of admission with unresponsive episodes of unknown etiology. Changes in the lateral leads though the troponin is negative, could be indicative of ischemia and resultant arrhythmia. They report he is near back to baseline. Understanding risks they defer want to go home and follow-up with Dr. Juarez or partner at the first of the week. They understand they should return for any changes or if they change her mind about further. Patient himself verbalizes he would like to go home. 04/15/17 03:06 - Vital Signs Vital signs: Temp Pulse Resp BP Pulse Ox 98.7 F 76 20 123/77 98 04/14/17 21:25 04/14/17 21:25 04/14/17 21:25 04/14/17 21:25 04/14/17 21:25 - Laboratory Result Diagrams: 04/15/17 01:27 04/15/17 01:27 Laboratory results interpreted by me: 04/15/17 04/15/17 01:27 01:27 RBC 4.24 L Hgb 12.9 L RDW 14.6 H Plt Count 140 L Carbon Dioxide 31 H Creatinine 3.44 H Est GFR ( Amer) 21 L Est GFR (Non-Af Amer) 18 L ALT 15 L - Diagnostic Test Radiology reviewed: Image reviewed, Reports reviewed - CT of head and chest x- ray showed no acute process. - EKG Interpretation by Me EKG shows normal: Sinus rhythm - Normal sinus rhythm, rate 69. Lateral T-wave inversions that appear new compared to 03/31/2017. Discharge - Discharge Clinical Impression: Altered mental status, Syncope, End stage renal disease Condition: Good Disposition: HOME, SELF-CARE Additional Instructions: Please return if worsening at all, more passing out episodes or other change. Referrals: TASHIA JUAREZ MD [ACTIVE STAFF] - 04/17/17
[2017-04-15 01:40] LABS: ABSOLUTE BASOPHILS # (AUTO) 0.1 10^3/uL (0.0-0.2); ABSOLUTE EOSINOPHILS # (AUTO) 0.4 10^3/uL (0.0-0.6); ABSOLUTE LYMPHOCYTES (AUTO) 1.7 10^3/uL (0.5-4.7); ABSOLUTE MONOCYTES (AUTO) 0.6 10^3/uL (0.1-1.4); ABSOLUTE NEUT (AUTO) 4.2 10^3/uL (1.7-8.2); HEMOGLOBIN 12.9 g/dL (13.5-17.0); HGB HCT DIFFERENCE 0.7; LYMPHOCYTES % (AUTO) 24.4 % (13-45); MEAN CORPUSCULAR HEMOGLOBIN 30.5 pg (27.0-33.4); MEAN CORPUSCULAR HGB CONC 34.1 g/dL (32.0-36.0); MEAN CORPUSCULAR VOLUME 90 fl (80-97); MONOCYTES % (AUTO) 8.1 % (3-13); RED BLOOD COUNT 4.24 10^6/uL (4.35-5.55); RED CELL DISTRIBUTION WIDTH 14.6 % (11.5-14.0); SEGMENTED NEUTROPHILS % (AUTO) 60.5 % (42-78); WHITE BLOOD COUNT 6.9 10^3/uL (4.0-10.5)
[2017-04-15 01:48] LABS: ALANINE AMINOTRANSFERASE 15 U/L (21-72); ALBUMIN 4.6 g/dL (3.5-5.0); ALKALINE PHOSPHATASE 92 U/L (38-126); ANION GAP 14 (5-19); ASPARTATE AMINO TRANSFERASE 17 U/L (17-59); BILIRUBIN,DIRECT 0.4 mg/dL (0.0-0.4); BILIRUBIN,TOTAL 0.5 mg/dL (0.2-1.3); BLOOD UREA NITROGEN 19 mg/dL (7-20); CALCIUM 9.3 mg/dL (8.4-10.2); CARBON DIOXIDE 31 mmol/L (22-30); CHLORIDE 98 mmol/L (98-107); CREATININE RESULT 3.44 mg/dL (0.52-1.25); GLUCOSE 95 mg/dL (75-110); POTASSIUM 3.9 mmol/L (3.6-5.0); SODIUM 143.2 mmol/L (137-145); TOTAL PROTEIN 7.5 g/dL (6.3-8.2)
--- NOTE | 2017-04-15 02:06 | RADIOLOGY REPORT (SQ) ---
EXAM DESCRIPTION: CT HEAD WITHOUT COMPLETED DATE/TIME: 04/15/2017 1:42 am REASON FOR STUDY: AMS COMPARISON: MRI, head, 06/27/2016. TECHNIQUE: Axial images acquired through the brain without intravenous contrast. Images reviewed wi th bone, brain and subdural windows. Images stored on PACS. All CT scanners at this facility use dose modulation, iterative reconstruction, and/or weight based d osing when appropriate to reduce radiation dose to as low as reasonably achievable (ALARA). [facility]: Dose Right [facility]: CareDose [facility]: Dose Right [facility]: Teradose 4D [facility]: Smart [employer] RADIATION DOSE: Up-to-date CT equipment and radiation dose reduction techniques were employed. CTDIv ol: 64.6 mGy. DLP: 1163 mGy-cm. mGy. LIMITATIONS: None. FINDINGS: VENTRICLES: Normal size and contour. CEREBRUM: Moderate encephalomalacia of the left anterior-mid parietal lobe consistent with old infarc t in the left anterior-mid MCA territory. Moderate confluent white matter microangiopathy. Multiple lacunar infarcts of bilateral basal ganglia. No significant interval change compared with prior MRI , 06/27/2016. Mild cerebral volume loss. CEREBELLUM: No masses. No hemorrhage. No alteration of density. No evidence for acute infarction. EXTRAAXIAL SPACES: No fluid collections. No masses. Atherosclerosis. ORBITS AND GLOBE: No intra- or extraconal masses. Normal contour of globe without masses. CALVARIUM: No fracture. PARANASAL SINUSES: No fluid or mucosal thickening. SOFT TISSUES: No mass or hematoma. OTHER: No other significant finding. IMPRESSION: No acute findings. COMMENT: Quality ID # [id number]: Final reports with documentation of one or more dose reduction techniques (e.g., Automated exposure control, adjustment of the mA and/or kV according to patient size, use of iterative reconstruction technique) TECHNICAL DOCUMENTATION: JOB ID: [id number] [employer]- All Rights Reserved
--- NOTE | 2017-04-15 02:42 | RADIOLOGY REPORT (SQ) ---
EXAM DESCRIPTION: CHEST SINGLE VIEW COMPLETED DATE/TIME: 04/15/2017 1:47 am REASON FOR STUDY: Abn Breath sounds, AMS COMPARISON: 03/31/2017. 01/17/2017. EXAM PARAMETERS: NUMBER OF VIEWS: One view. TECHNIQUE: Single frontal radiographic view of the chest acquired. RADIATION DOSE: NA LIMITATIONS: None. FINDINGS: LUNGS AND PLEURA: No opacities, masses or pneumothorax. No pleural effusion. Likely small calcified granuloma of the right lower lobe, chronic. MEDIASTINUM AND HILAR STRUCTURES: No masses. Contour normal. HEART AND VASCULAR STRUCTURES: Heart normal in size. Normal vasculature. BONES: No acute findings. HARDWARE: Left internal jugular central line tip at the cavoatrial junction. OTHER: No other significant finding. IMPRESSION: No acute cardiopulmonary findings. TECHNICAL DOCUMENTATION: JOB ID: [id number]
--- NOTE | 2017-04-15 11:51 | EKG REPORT ---
SEVERITY:- ABNORMAL ECG - SINUS RHYTHM NONSPECIFIC T ABNORMALITIES, LATERAL LEADS : Confirmed by: Jason Bundy 15-Apr-2017 11:50:50
== END 2017-04-15 03:13 | disposition home or self-care (01) ==
LOC: ER 21:20
DX: N18.6 End stage renal disease (principal); R55 Syncope and collapse; R41.82 Altered mental status, unspecified; Z87.891 Personal history of nicotine dependence
CPT/HCPCS: 36415; 70450; 71010; 80053; 85025; 93005; 93010; 99285

== ENCOUNTER → 2017-05-22 | Outpatient (CLI) | payer MEDICARE, OTHER ==
--- NOTE | 2017-05-22 17:03 | RADIOLOGY REPORT (SQ) ---
EXAM DESCRIPTION: HIPS BILATERAL COMPLETED DATE/TIME: 05/22/2017 4:44 pm REASON FOR STUDY: UNSPECIFIED INJURY OF LOWER BACK, INITIAL ENCOUNTER S39.92XA UNSPECIFIED INJURY O F LOWER BACK, INITIAL ENCOUNTER COMPARISON: Lumbar spine films same date NUMBER OF VIEWS: Two views TECHNIQUE: AP pelvis and additional frog-leg view of both hips. LIMITATIONS: None. FINDINGS: MINERALIZATION: Osteoporotic HIPS: No acute fracture or dislocation. No worrisome bone lesions. No significant joint space narrow ing or bony spurring. PELVIS AND SACRUM: No acute fracture or dislocation. No worrisome bone lesions. PUBIS AND ISCHIUM: No acute fracture. LOWER LUMBAR SPINE: No significant findings as visualized. SOFT TISSUES: No findings. OTHER: No other significant finding. IMPRESSION: NEGATIVE STUDY OF THE PELVIS AND HIPS. TECHNICAL DOCUMENTATION: JOB ID: [id number] [employer]- All Rights Reserved
--- NOTE | 2017-05-22 17:05 | RADIOLOGY REPORT (SQ) ---
EXAM DESCRIPTION: LUMBAR SPINE COMPLETE COMPLETED DATE/TIME: 05/22/2017 4:44 pm REASON FOR STUDY: UNSPECIFIED INJURY OF LOWER BACK, INITIAL ENCOUNTER S39.92XA UNSPECIFIED INJURY O F LOWER BACK, INITIAL ENCOUNTER COMPARISON: None. NUMBER OF VIEWS: Five views including obliques. TECHNIQUE: AP, lateral, oblique, and sacral radiographic images acquired of the lumbar spine. LIMITATIONS: None. FINDINGS: MINERALIZATION: Osteoporotic SEGMENTATION: Normal. No transitional anatomy. ALIGNMENT: Normal. VERTEBRAE: 50% upper endplate compression of L1. This could be acute. Consider MRI or bone scan for further evaluation prior to possible kyphoplasty. DISCS: Preserved height. No significant osteophytes or end plate irregularity. POSTERIOR ELEMENTS: Pedicles and facets are intact. No pars defect or posterior arch defects. HARDWARE: None in the spine. PARASPINAL SOFT TISSUES: Calcified abdominal aorta without calcified aneurysm. PELVIS: Intact as visualized. No fractures or worrisome bone lesions. SI joints intact. OTHER: No other significant finding. IMPRESSION: 50% upper endplate compression of L1. This could be acute. Consider MRI or bone scan f or further evaluation prior to possible kyphoplasty TECHNICAL DOCUMENTATION: JOB ID: [id number] [employer]- All Rights Reserved
== END ==
LOC: OD 15:43
PROVIDERS: ATTEND Family Medicine
DX: S39.92XA Unspecified injury of lower back, initial encounter (principal); X58.XXXA Exposure to other specified factors, initial encounter
CPT/HCPCS: 72110; 73522

== ENCOUNTER → 2017-05-25 | Outpatient (CLI) | payer MEDICARE, OTHER ==
--- NOTE | 2017-05-25 16:53 | RADIOLOGY REPORT (SQ) ---
EXAM DESCRIPTION: MRI LUMBAR SPINE WITHOUT COMPLETED DATE/TIME: 05/25/2017 4:27 pm REASON FOR STUDY: UNSPE INJURY OF LOWER BACK , INITIAL ENCOUNTER (S39.92XA) S39.92XA UNSPECIFIED IN JURY OF LOWER BACK, INITIAL ENCOUNTER COMPARISON: X-ray dated 05/22/2017. TECHNIQUE: Sagittal and Axial imaging includes T1, T2, STIR and gradient echo sequences. Coronal T2/ HASTE imaging. LIMITATIONS: None. FINDINGS: VISUALIZED UPPER ABDOMEN: Limited evaluation. Renal cysts. No acute or suspicious findi ngs suggested. SEGMENTATION: No transitional anatomy. The lowest well-developed disc space is labeled L5-S1. ALIGNMENT: Anatomic. VERTEBRAE: Compression deformity of the L1 vertebral body with 50% loss of height. No compromise of the central canal. BONE MARROW: Marrow edema in the body of L 1. Normal marrow signal in the remainder the bony structu res. DISC SIGNAL: Normal. No significant abnormal signal or loss of height. POSTERIOR ELEMENTS: Generally intact. No pars defect evident. HARDWARE: None in the spine. CORD AND CONUS: Normal in size and signal intensity. Conus at the appropriate level. SOFT TISSUES: No aortic aneurysm seen. No bulky retroperitoneal adenopathy or mass. No paraspinal mas s or fluid. L1-L2: No significant spinal stenosis or exit foraminal stenosis. L2-L3: No significant spinal stenosis or exit foraminal stenosis. L3-L4: No significant spinal stenosis or exit foraminal stenosis. L4-L5: No significant spinal stenosis or exit foraminal stenosis. L5-S1: No significant spinal stenosis or exit foraminal stenosis. LOWER THORACIC: Incompletely imaged. No stenosis seen. SACRUM: Visualized upper sacrum intact. OTHER: No other significant findings. IMPRESSION: 1. RECENT COMPRESSION FRACTURE OF THE L1 VERTEBRAL BODY WITH 50% LOSS OF HEIGHT. ASSOCIATED MARROW E MAMIE. NO INVOLVEMENT OF THE BACKWALL OR COMPROMISE OF THE SPINAL CANAL. 2. REMAINDER OF THE LUMBAR SPINE IS OTHERWISE UNREMARKABLE. TECHNICAL DOCUMENTATION: JOB ID: [id number] ([employer])- All Rights Reserved
== END ==
LOC: RAD 14:58
PROVIDERS: ATTEND Family Medicine
DX: S39.92XA Unspecified injury of lower back, initial encounter (principal); X58.XXXA Exposure to other specified factors, initial encounter; Y93.9 Activity, unspecified; Y92.9 Unspecified place or not applicable; Y99.9 Unspecified external cause status
CPT/HCPCS: 72148

== ENCOUNTER 2017-05-30 11:58 | Day surgery (SDC) | payer MEDICARE, OTHER ==
[2017-05-30 12:55] LABS: HEMOGLOBIN 12.1 g/dL (13.5-17.0); HGB HCT DIFFERENCE 0.3; MEAN CORPUSCULAR HEMOGLOBIN 29.9 pg (27.0-33.4); MEAN CORPUSCULAR HGB CONC 33.5 g/dL (32.0-36.0); MEAN CORPUSCULAR VOLUME 89 fl (80-97); RED BLOOD COUNT 4.05 10^6/uL (4.35-5.55); RED CELL DISTRIBUTION WIDTH 14.8 % (11.5-14.0); WHITE BLOOD COUNT 11.9 10^3/uL (4.0-10.5)
[2017-05-30] MEDS ORDERED: DIAZEPAM 5 MG TABLET ONE (13:33)
[2017-05-30] MEDS ORDERED: OXYCODONE-ACETAMINOPHEN 5-325 MG TABLET ONE (13:34)
[2017-05-30] MEDS ORDERED: MIDAZOLAM 2 MG/2 ML INJ ONE (13:46)
[2017-05-30] MEDS ORDERED: FENTANYL CITRATE INJ/PF 100 MCG/2 ML AMPUL ONE (13:47)
[2017-05-30] MEDS ORDERED: HEPARIN SOD (PORCINE) 5,000 UNIT/ML 1 ML SYRINGE ONE (13:47)
[2017-05-30] MEDS ORDERED: LIDOCAINE 0.5% INJ-PF (5 MG/ML) 50 ML SDV ONE (13:47)
--- NOTE | 2017-05-30 15:10 | PDOC DISCHARGE SUMMARY ---
Discharge Summary (SDC) - Discharge Final Diagnosis: #1 malfunctioning arteriovenous fistula, left radiocephalic. 2. End-stage renal disease on hemodialysis. 3. COPD. 4. Hypertension. Date of Surgery: 05/30/17 Discharge Date: 05/30/17 Condition: Fair Treatment or Instructions: Discharge home [after recovery per ASU criteria]. Diet , [renal],as tolerated, when fully awake advance as tolerated. Activities within moderation encouraged. Follow up in my office by appointment in about [1 week]. Call for appointment. Leave wounds [covered], [keep clean and dry, until office visit in 1 week]. Hold of on school/work [until evaluation in office]. Meds per med rec. May shower [in 48 hrs], [try to keep operated area as dry as possible]. Referrals: TASHIA JUAREZ MD [Primary Care Provider] - Discharge Diet: Other (Comments) - Renal Discharge Activity: Activity As Tolerated Report the Following to Your Physician Immediately: Shortness of Breath, Unusual Bleeding
--- NOTE | 2017-05-30 15:15 | Operative Report ---
Operative Report DATE OF SURGERY: 05/30/17 PREOPERATIVE DIAGNOSIS: #1 malfunctioning arteriovenous fistula, left radiocephalic. 2. End-stage renal disease on hemodialysis. 3. COPD. 4. Hypertension. POSTOPERATIVE DIAGNOSIS: #1 malfunctioning arteriovenous fistula, left radiocephalic. 2. End-stage renal disease on hemodialysis. 3. COPD. 4. Hypertension. OPERATION: #1 ultrasound evaluation and guided renal axis views fistula. 2. Fistula angioplasty, maturation. 3. Angiogram and interpretation. SURGEON: JAIMEE MCCONNELL INTERN ARCHITECT: None ANESTHESIA: Moderate Sedation TISSUE REMOVED OR ALTERED: Not applicable. COMPLICATIONS: None ESTIMATED BLOOD LOSS: 5 mL. INTRAOPERATIVE FINDINGS: Of functioning left radiocephalic fistula. About 4.2 mm in widest dimensions preangioplasty. Accepted dilatation up to 6 mm, hopefully this will hold. At that level it should be adequate for initiating hemodialysis in about 2 weeks. Otherwise further dilatation may be needed. A subtle area of mild stenosis of both 10% is noted at the cephalic radial junction. May also need to be addressed in the future. I do not think any intervention is needed at this time as the patient is a really robust even semi- obstructive pulse in the first 4 cm. PROCEDURE: PROCEDURE: After verifying the procedure and having obtained informed consent, the patient's left arm and forearm were prepared with Chlorhexidine and draped out with sterile linen. Local anesthesia infiltrated. Percutaneous access into the fistula ,[retrograde], obtained about [20 cm] from the arteriovenous anastomosis using a micro puncture needle followed by micro puncture wire and then a micro puncture catheter. This was done on ultrasound guidance using real-time access into the vein. Ultrasound was also used to size the vein. Angiogram demonstrated the aforementioned findings. Angiogram was done using a Kumpe catheter. Angioplasty was elected. A 0.035 Welsh wire was inserted, and over this, a 5 Icelandic short introducer was placed, this was followed by a 6 angioplasty balloon . Angioplasty was now done at the perianastomotic segment, and in the body of the fistula up to the introducer. The hope is to have a good 10 cm available for use. This was done very carefully and using a 3 mils syringe up to 2 minutes each. Angiogram demonstrated successful outcome. Completion angiogram demonstrated [satisfactory result]. The instrumentation was now withdrawn over hand-held pressure for 10 minutes. Dressings applied, procedure concluded. Exposure time: 2.9 minutes Radiation: 2.12 cj per centimeter squared Contrast: 25 mL of Isovue-M 300 low osmolality. DICTATING PHYSICIAN: JAIMEE LEWIS M.D. cc: JAIMEE LEWIS M.D. ([id number]) >>
[2017-05-30 16:20] VITALS: BP 175/96
--- NOTE | 2017-05-30 16:36 | RADIOLOGY REPORT (SQ) ---
EXAM DESCRIPTION: FISTULAGRAM W/PLASTY COMPLETED DATE/TIME: 05/30/2017 3:55 pm REASON FOR STUDY: T82.858A T82.858A STENOSIS OF OTHER VASCULAR PROSTH DEV/GRFT, INIT COMPARISON: None. FLUOROSCOPY TIME: 3.1 minute. 7 images saved to PACS. TECHNIQUE: Intra-operative images acquired during surgical procedure to evaluate progress. NUMBER OF IMAGES: 7 images. LIMITATIONS: None. FINDINGS: Imaging in fluoroscopy during left upper extremity dialysis access evaluation and plasty b y Dr. Winter . Please refer to the operative report for further details. IMPRESSION: INTRA PROCEDURAL IMAGING ABOVE . COMMENT: Quality ID [id number]: Final reports for procedures using fluoroscopy that document radiation exp osure indices, or exposure time and number of fluorographic images (if radiation exposure indices are not available) Please consult full operative report of the attending physician for description of the procedure. TECHNICAL DOCUMENTATION: JOB ID: [id number] [employer]- All Rights Reserved
== END 2017-05-30 16:15 | disposition home or self-care (01) ==
LOC: SC 11:58
PROVIDERS: ATTEND Surgery
PROC: 057F3DZ Dilation of Left Cephalic Vein with Intraluminal Device, Percutaneous Approach (ICD-10-PCS; principal; 2017-05-30)
DX: T82.858A Stenosis of other vascular prosthetic devices, implants and grafts, initial encounter (principal); Y83.2 Surgical operation with anastomosis, bypass or graft as the cause of abnormal reaction of the patient, or of later complication, without mention of misadventure at the time of the procedure; N18.6 End stage renal disease; Z99.2 Dependence on renal dialysis; J44.9 Chronic obstructive pulmonary disease, unspecified; I12.0 Hypertensive chronic kidney disease with stage 5 chronic kidney disease or end stage renal disease; Z88.8 Allergy status to other drugs, medicaments and biological substances; Z88.6 Allergy status to analgesic agent; Z86.73 Personal history of transient ischemic attack (TIA), and cerebral infarction without residual deficits; Z87.891 Personal history of nicotine dependence; Z79.899 Other long term (current) drug therapy
CPT/HCPCS: 36415; 85027; 36902; 76937; C1725; Q9967; C1769; J1644 ×2; A9270 ×2; J3010; J3490; 2623; J2250

== ENCOUNTER 2017-07-25 22:11 | Inpatient (IN) | payer MEDICARE, OTHER ==
--- NOTE | 2017-07-25 22:33 | ER Document Report ---
ED General - General Stated Complaint: FALL/LEFT HIP PAIN Time Seen by Provider: 07/25/17 22:16 Notes: Patient is a 72-year-old male who has a history of end-stage renal disease. He fell on . said she heard a thud in the bedroom and she went and found him lying on the floor. He complains only of pain in his left hip and thigh. He is able to answer most of my questions. He denies any recent fevers or infections. His also denies him having any recent fevers or infections. Initially they called ambulance but he did not want to go to the hospital. Since then he is unable to walk or bear any type of weight and therefore they brought him to the ER today. The denies that he has been confused. The daughter herself feels that he is little more confused than usual. The admits that she did not want to go to dialysis on Monday so therefore they skipped. He supposed to go to dialysis tomorrow. Last dialysis was Monday. No Vomiting. No diarrhea. No chest pain. No abdominal pain. No back pain. No neck pain. No other complaints at this time. Primary care doctor is Dr. Pérez. TRAVEL OUTSIDE OF THE [place] IN LAST 30 DAYS: No - Related Data Allergies/Adverse Reactions: atorvastatin calcium [From Lipitor] Allergy (Intermediate, Verified 07/25/17 22: 41) MUSCLE CRAMPS, ITCHING rosuvastatin calcium [From Crestor] Allergy (Intermediate, Verified 07/25/17 22: 41) MUSCLE CRAMPS, ITCHING Wkvuibv-Hgh-Epr Reductase Inhibitor Allergy (Verified 07/25/17 22:41) Past Medical History - Social History Smoking Status: Unknown if Ever Smoked Frequency of alcohol use: None Drug Abuse: None Family History: Reviewed & Not Pertinent, CAD - Past Medical History Cardiac Medical History: Reports: Hx Heart Attack, Hx Hypercholesterolemia, Hx Hypertension Denies: Hx Coronary Artery Disease Pulmonary Medical History: Reports: Hx COPD Denies: Hx Asthma, Hx Bronchitis, Hx Pneumonia Neurological Medical History: Denies: Hx Cerebrovascular Accident, Hx Seizures Renal/ Medical History: Denies: Hx Peritoneal Dialysis Musculoskeltal Medical History: Denies Hx Arthritis - Immunizations Hx Diphtheria, Pertussis, Tetanus Vaccination: Yes Hx Pneumococcal Vaccination: 07/31/14 Review of Systems - Review of Systems Notes: My Normal Review Basic REVIEW OF SYSTEMS: CONSTITUTIONAL : Denies fever, chills, or sweats. Denies recent illness. EENT: Denies eye, ear, throat, or mouth pain or symptoms. Denies nasal or sinus congestion. CARDIOVASCULAR: Denies chest pain. RESPIRATORY: Denies cough, cold, or chest congestion. Denies shortness of breath, difficulty breathing, or wheezing. GASTROINTESTINAL: Denies abdominal pain. Denies nausea, vomiting, or diarrhea. Denies constipation. Last BM: GENITOURINARY: Denies difficulty urinating, painful urination, burning, frequency, or blood in urine. MUSCULOSKELETAL: Left hip and thigh pain. SKIN: Denies rash or skin lesions. HEMATOLOGIC : Denies easy bruising or bleeding. LYMPHATIC: Denies swollen, enlarged glands. NEUROLOGICAL: Possible altered mental status.. Denies headache. Denies weakness or paralysis or loss of use of either side. Denies problems with gait or speech. Denies sensory or motor loss. ALL OTHER SYSTEMS REVIEWED AND NEGATIVE. Physical Exam - Vital signs Vitals: Temp Pulse Resp BP Pulse Ox 98.7 F 86 13 162/82 H 97 07/25/17 22:39 07/25/17 22:39 07/25/17 22:39 07/25/17 22:39 07/25/17 22:39 - Notes Notes: General Appearance: Well nourished, alert, cooperative, no acute distress, mild obvious discomfort if there is an attempt at moving his left leg.. Vitals: reviewed, See vital signs table. Head: no swelling or tenderness to the head Eyes: PERRL, EOMI, Conjuctiva clear Mouth: No decreasd moisture Throat: No tonsillar inflammation, No airway obstruction, No lymphadenopathy Neck: Supple, no neck tenderness, No thyromegaly Lungs: No wheezing, No rales, No rhonci, No accessory muscle use, good air exchange bilaterally. Heart: Normal rate, Regular rythm, No murmur, no rub Abdomen: Normal BS, soft, No rigidity, No abdominal tenderness, No guarding, no rebound, no abdominal masses, no organomegaly Extremities: strength 5/5 in all extremities, good pulses in all extremities, left thigh is visibly swollen. He has pain with any attempt of range of motion of his left leg whatsoever. Left knee to foot seems to be nontender when I palpate over these areas individually without moving the thigh. Right lower extremity is completely nontender to palpation.. Skin: warm, dry, appropriate color, no rash Neuro: He answers most questions appropriately. Cranial nerves II through XII appear to be intact. He is globally weak all over. I do not notice any focal difference in strength on his left versus his right side. Course - Re-evaluation Re-evalutation: 07/25/17 23:24 Patient has appears to be a intertrochanteric hip fracture in the left. I did discuss this with the family. I asked the patient if he want anything for pain and he shook his head no. He says he feels okay as long does not move it and does not want anything for pain at this time. I informed him to let me know if he needs something for pain later. 07/26/17 00:[address] Pérez. Discussed case with him. He is agreeable to admitting the patient. We do have Dr. Garcia covering fourth toe. I have consult order in the system for the morning for the patient with Dr. Garcia. Patient is anemic. As Dr. Pérez if he preferred to use them now or wait till tomorrow when he gets dialysis. He said to wait till tomorrow to for when he gets dialysis. I have ordered crossmatch of the blood so that it will be ready transfused when he has dialysis. Dictation of this chart was performed using voice recognition software; therefore, there may be some unintended grammatical errors. 07/26/17 00:28 - Vital Signs Vital signs: Temp Pulse Resp BP Pulse Ox 98.7 F 86 13 162/82 H 97 07/25/17 22:39 07/25/17 22:39 07/25/17 22:39 07/25/17 22:39 07/25/17 22:39 - Laboratory Result Diagrams: 07/25/17 22:30 07/25/17 23:18 Laboratory results interpreted by me: 07/25/17 07/25/17 07/25/17 22:30 22:30 23:18 RBC 2.67 L Hgb 7.8 L Hct 23.6 L RDW 16.9 H Plt Count 129 L Lymphocytes % 11.5 L APTT 45.7 H Sodium 136.9 L BUN 41 H Creatinine 7.16 H Est GFR ( Amer) 9 L Est GFR (Non-Af Amer) 8 L ALT 20 L Total Protein 6.1 L Albumin 3.2 L - EKG Interpretation by Me Additional EKG results interpreted by me: 07/26/17 00:28 EKG is reviewed and interpreted by me. EKG shows normal sinus rhythm with a rate of [address] segment elevation or depression. GA interval, QRS duration, QTc intervals are within normal range. Old EKG for comparison is from June 15, 2017. Discharge - Discharge Clinical Impression: Hip fracture Qualifiers: Encounter type: initial encounter Fracture type: closed Laterality: left Qualified Code(s): S72.002A - Fracture of unspecified part of neck of left femur , initial encounter for closed fracture Condition: Stable Disposition: ADMITTED INPATIENT Admitting Provider: Pérez Unit Admitted: Telemetry
[2017-07-25 22:42] LABS: ABSOLUTE BASOPHILS # (AUTO) 0.1 10^3/uL (0.0-0.2); ABSOLUTE EOSINOPHILS # (AUTO) 0.2 10^3/uL (0.0-0.6); ABSOLUTE LYMPHOCYTES (AUTO) 1.2 10^3/uL (0.5-4.7); ABSOLUTE MONOCYTES (AUTO) 0.9 10^3/uL (0.1-1.4); ABSOLUTE NEUT (AUTO) 8.1 10^3/uL (1.7-8.2); BASOPHILS % (AUTO) 0.7 % (0-2); EOSINOPHILS % (AUTO) 2.2 % (0-6); HEMATOCRIT 23.6 % (37.9-51.0); LYMPHOCYTES % (AUTO) 11.5 % (13-45); MEAN CORPUSCULAR HEMOGLOBIN 29.2 pg (27.0-33.4); MEAN CORPUSCULAR HGB CONC 33.1 g/dL (32.0-36.0); MEAN CORPUSCULAR VOLUME 88 fl (80-97); MONOCYTES % (AUTO) 8.5 % (3-13); PLATELET COUNT 129 10^3/uL (150-450); RED BLOOD COUNT 2.67 10^6/uL (4.35-5.55); RED CELL DISTRIBUTION WIDTH 16.9 % (11.5-14.0); SEGMENTED NEUTROPHILS % (AUTO) 77.1 % (42-78); TOTAL CELLS COUNTED % (AUTO) 100 %; WHITE BLOOD COUNT 10.5 10^3/uL (4.0-10.5)
[2017-07-25 22:46] LABS: HEMOGLOBIN 7.8 g/dL (13.5-17.0)
--- NOTE | 2017-07-25 23:20 | RADIOLOGY REPORT (SQ) ---
EXAM DESCRIPTION: CHEST SINGLE VIEW COMPLETED DATE/TIME: 07/25/2017 11:02 pm REASON FOR STUDY: missed dialysis COMPARISON: 05/11/2013 EXAM PARAMETERS: NUMBER OF VIEWS: One view. TECHNIQUE: Single frontal radiographic view of the chest acquired. RADIATION DOSE: NA LIMITATIONS: None. FINDINGS: LUNGS AND PLEURA: No acute opacities, masses or pneumothorax. No pleural effusion. MEDIASTINUM AND HILAR STRUCTURES: Stable. HEART AND VASCULAR STRUCTURES: Stable. BONES: No acute findings. HARDWARE: Left IJ tunneled dialysis catheter. OTHER: No other significant finding. IMPRESSION: NO ACUTE RADIOGRAPHIC FINDING IN THE CHEST. TECHNICAL DOCUMENTATION: JOB ID: [id number] [place]-72 2010 [employer]- All Rights Reserved
--- NOTE | 2017-07-25 23:21 | RADIOLOGY REPORT (SQ) ---
EXAM DESCRIPTION: FEMUR LEFT COMPLETED DATE/TIME: 07/25/2017 11:02 pm REASON FOR STUDY: trauma COMPARISON: None. NUMBER OF VIEWS: Two views. TECHNIQUE: Two radiographic images acquired of the left femur to include hip and knee in at least on e projection. LIMITATIONS: None. FINDINGS: MINERALIZATION: Normal. BONES: Comminuted intertrochanteric femoral neck fracture with mild impaction and varus angulation. SOFT TISSUES: No obvious swelling or foreign body. OTHER: No other significant finding. IMPRESSION: Comminuted left intertrochanteric femoral neck fracture with mild impaction and varus an gulation. TECHNICAL DOCUMENTATION: JOB ID: [id number] [place]-72 2010 [employer]- All Rights Reserved
--- NOTE | 2017-07-25 23:22 | RADIOLOGY REPORT (SQ) ---
EXAM DESCRIPTION: PELVIS AP COMPLETED DATE/TIME: 07/25/2017 11:02 pm REASON FOR STUDY: trauma COMPARISON: None. NUMBER OF VIEWS: One view TECHNIQUE: AP Pelvis LIMITATIONS: None. FINDINGS: MINERALIZATION: Normal. HIPS: Comminuted Left femoral neck fracture. PELVIS AND SACRUM: No acute fracture or dislocation. No worrisome bone lesions. PUBIS AND ISCHIUM: No acute fracture. LOWER LUMBAR SPINE: No significant findings as visualized. SOFT TISSUES: No findings. OTHER: No other significant finding. IMPRESSION: Comminuted Left femoral neck fracture. TECHNICAL DOCUMENTATION: JOB ID: [id number] [place]-72 2010 [employer]- All Rights Reserved
--- NOTE | 2017-07-25 23:24 | RADIOLOGY REPORT (SQ) ---
EXAM DESCRIPTION: CT HEAD WITHOUT COMPLETED DATE/TIME: 07/25/2017 11:12 pm REASON FOR STUDY: fall COMPARISON: 04/15/2017 TECHNIQUE: Axial images acquired through the brain without intravenous contrast. Images reviewed wi th bone, brain and subdural windows. Images stored on PACS. All CT scanners at this facility use dose modulation, iterative reconstruction, and/or weight based d osing when appropriate to reduce radiation dose to as low as reasonably achievable (ALARA). [facility]: Dose Right [facility]: CareDose [facility]: Dose Right [facility]: Teradose 4D [facility]: Smart SeeOn RADIATION DOSE: CT Rad equipment meets quality standard of care and radiation dose reduction techniq ues were employed. CTDIvol: 64.6 mGy. DLP: 1163 mGy-cm.mGy. LIMITATIONS: None. FINDINGS: VENTRICLES: Stable. CEREBRUM: No masses. No hemorrhage. No midline shift. Areas of low density in the white matter mos t likely due to chronic micro-vascular ischemic change. No evidence for acute infarction. CEREBELLUM: No masses. No hemorrhage. No alteration of density. No evidence for acute infarction. EXTRAAXIAL SPACES: Age-related involutional change. No fluid collections. No masses. ORBITS AND GLOBE: No intra- or extraconal masses. Normal contour of globe without masses. CALVARIUM: No fracture. PARANASAL SINUSES: No fluid or mucosal thickening. SOFT TISSUES: No mass or hematoma. OTHER: No other significant finding. IMPRESSION: CHRONIC CHANGES OF ATROPHY AND MICROVASCULAR ISCHEMIA. NO ACUTE PROCESS. EVIDENCE OF ACUTE STROKE: NO. TECHNICAL DOCUMENTATION: JOB ID: [id number] [place]-72 Quality ID # [id number]: Final reports with documentation of one or more dose reduction techniques (e.g., Au tomated exposure control, adjustment of the mA and/or kV according to patient size, use of iterative reconstruction technique) 2010 [employer]- All Rights Reserved
[2017-07-25 23:30] LABS: PROTHROMBIN TIME 13.9 SEC (11.4-15.4)
[2017-07-25 23:32] LABS: PARTIAL THROMBOPLASTIN TIME 45.7 SEC (23.5-35.8)
[2017-07-25 23:42] LABS: ALANINE AMINOTRANSFERASE 20 U/L (21-72); ALBUMIN 3.2 g/dL (3.5-5.0); ALKALINE PHOSPHATASE 74 U/L (38-126); ANION GAP 9 (5-19); ASPARTATE AMINO TRANSFERASE 17 U/L (17-59); BILIRUBIN,DIRECT 0.2 mg/dL (0.0-0.4); BILIRUBIN,TOTAL 0.5 mg/dL (0.2-1.3); BLOOD UREA NITROGEN 41 mg/dL (7-20); CALCIUM 8.7 mg/dL (8.4-10.2); CARBON DIOXIDE 30 mmol/L (22-30); CHLORIDE 98 mmol/L (98-107); GLUCOSE 97 mg/dL (75-110); POTASSIUM 4.3 mmol/L (3.6-5.0); SODIUM 136.9 mmol/L (137-145); TOTAL PROTEIN 6.1 g/dL (6.3-8.2)
[2017-07-26] MEDS ORDERED: NORMAL SALINE 250 ML IV PRN (00:06)
[2017-07-26] MEDS ORDERED: ACETAMINOPHEN 325 MG TABLET PO PRN (00:08)
[2017-07-26] MEDS ORDERED: INFLUENZA ADLT QUAD (36MOS+) 2017-18 VAC 0.5 ML SYR IM PRN (02:07)
[2017-07-26] MEDS: HEPARIN SOD (PORCINE) 5,000 UNIT/ML 1 ML SYRINGE SUBCUT SCH ×3 (04:02→22:11)
[2017-07-26] MEDS ORDERED: LANSOPRAZOLE 30 MG TAB.RAP.DR PO ONE (11:15)
[2017-07-26] MEDS ORDERED: FUROSEMIDE INJ/PF 20 MG/2 ML SDV IV PRN (11:45)
--- NOTE | 2017-07-26 12:29 | XCELERA REPORT ---
[address] [address] Transthoracic Echocardiogram Report Name: CASA NIX Age: 72 yrs Gender: Male : 1945 Patient Status: Inpatient Patient Location: [address] [place] [address] Study Date: 07/26/2017 10:50 AM Height: 69 in Weight: 156 lb BSA: 1.9 m2 Procedure: A complete two-dimensional transthoracic echocardiogram was performed (2D, M-mode, spectral and color flow Doppler). The study was technically difficult with many images being suboptimal in quality. Reason For Study: heart murmur, preop Ordering Physician: JASON ROSENTHAL Performed By: Tomasa Olivia Interpretation Summary The left ventricular ejection fraction is normal. There is mild concentric left ventricular hypertrophy. The left ventricle is grossly normal size. Doppler measurements suggest pseudonormalized left ventricular relaxation, which is associated with grade II/IV or mild to moderate diastolic dysfunction Wall motion cannot be accurately commented on, but no definite regional wall motion abnormalities noted. Right ventricular function cannot be assessed due to poor image quality. The right atrium is normal in size The left atrial size is normal. There is a trace to mild amount of mitral regurgitation There is no mitral valve stenosis. No aortic regurgitation is present. There is no aortic valve stenosis There is a trace or physiologic amount of tricuspid regurgitation Tricuspid regurgitation jet envelope not well defined to measure RV systolic pressure accurately. The aortic root is not well visualized but is probably normal size. The inferior vena cava appeared normal and decreased > 50% with respiration (RAP 5-10 mmHg) There is no pericardial effusion. MMode/2D Measurements & Calculations RVDd: 2.6 cm LVIDd: 3.9 cmFS: 23.5 % Ao root diam: 3.7 cm IVSd: 1.1 cm LVIDs: 3.0 cmEDV(Teich): 67.7 ml LVPWd: 1.1 cmESV(Teich): 35.5 ml Ao root area: 10.6 cm2 EF(Teich): 47.6 % LA dimension: 3.0 cm LVOT diam: 2.0 cm LVOT area: 3.2 cm2 Doppler Measurements & Calculations MV E max damián: MV P1/2t max damián: Ao V2 max: LV V1 max P.2 cm/sec 65.6 cm/sec 117.3 cm/sec 3.4 mmHg MV A max damián: MV P1/2t: 47.8 msec Ao max PG: LV V1 max: 96.3 cm/sec MVA(P1/2t): 4.6 cm2 5.5 mmHg 92.8 cm/sec MV E/A: 0.67 MV dec slope: GRUPO(V,D): 2.6 cm2 402.7 cm/sec2 PA V2 max: 83.4 cm/sec PA max P.8 mmHg Left Ventricle The left ventricle is grossly normal size. There is mild concentric left ventricular hypertrophy. The left ventricular ejection fraction is normal. Doppler measurements suggest pseudonormalized left ventricular relaxation, which is associated with grade II/IV or mild to moderate diastolic dysfunction. Wall motion cannot be accurately commented on, but no definite regional wall motion abnormalities noted. Right Ventricle The right ventricle is grossly normal size. Right ventricular function cannot be assessed due to poor image quality. Atria The right atrium is normal in size. The left atrial size is normal. Interarterial septum not well visualized and not well dopplered. Cannot comment on ASD/PFO presence. Mitral Valve The mitral valve leaflets are sclerotic, but show no functional abnormalities. There is no mitral valve stenosis. There is a trace to mild amount of mitral regurgitation. Aortic Valve The aortic valve is mildly calcified. There is no aortic valve stenosis. No aortic regurgitation is present. Tricuspid Valve The tricuspid valve is not well visualized secondary to technical limitations. There is no tricuspid stenosis. There is a trace or physiologic amount of tricuspid regurgitation. Tricuspid regurgitation jet envelope not well defined to measure RV systolic pressure accurately. Pulmonic Valve The pulmonic valve is not well visualized. Great Vessels The aortic root is not well visualized but is probably normal size. The inferior vena cava appeared normal and decreased > 50% with respiration (RAP 5-10 mmHg). Effusions There is no pericardial effusion. : JASON ROSENTHAL > Jason Rosenthal
--- NOTE | 2017-07-26 13:05 | PDOC CONSULTATION ---
Consultation Consult Date: 07/26/17 Attending physician:: TASHIA JUAREZ Consult reason:: Preop cardiovascular examination History of Present Illness Admission Date/PCP: 07/26/17 00:26 TASHIA JUAREZ MD Patient complains of: Recent fall with resulting in hip fracture History of Present Illness: Patient is a 72-year-old male who has a history of end-stage renal disease. He fell on . said she heard a thud in the bedroom and she went and found him lying on the floor. He complains only of pain in his left hip and thigh. He is able to answer most of my questions. He denies any recent fevers or infections. His also denies him having any recent fevers or infections. Initially they called ambulance but he did not want to go to the hospital. Since then he is unable to walk or bear any type of weight and therefore they brought him to the ER today. The denies that he has been confused. The daughter herself feels that he is little more confused than usual. The admits that she did not want to go to dialysis on Monday so therefore they skipped. He supposed to go to dialysis tomorrow. Last dialysis was Monday. No Vomiting. No diarrhea. No chest pain. No abdominal pain. No back pain. No neck pain. No other complaints at this time. Primary care doctor is Dr. Juarez. This history was reviewed and confirmed patient speaks very little. He also has underlying dementia. Patient's daughter is the surrogate decision maker.. Past Medical History Cardiac Medical History: Reports: Myocardial Infarction, Hyperlipidema, Hypertension Denies: Coronary Artery Disease Pulmonary Medical History: Reports: Chronic Obstructive Pulmonary Disease (COPD) Denies: Asthma, Bronchitis, Pneumonia Neurological Medical History: Denies: Seizures Musculoskeltal Medical History: Denies: Arthritis Hematology: Denies: Anemia Social History Information Source: Relative Smoking Status: Unknown if Ever Smoked Frequency of Alcohol Use: None Hx Recreational Drug Use: No Hx Prescription Drug Abuse: No - Advance Directive Resuscitation Status: Full Code Surrogate healthcare decision maker:: Patient's daughter Family History Family History: Reviewed & Not Pertinent, CAD Parental Family History Reviewed: Yes Children Family History Reviewed: Yes Sibling(s) Family History Reviewed.: Yes Medication/Allergy Home Medications: Amlodipine Besylate [Norvasc 5 mg Tablet] 5 mg PO DAILY 12/27/17 Aspirin/Dipyridamole [Aggrenox 25 mg/200 mg Capsule SA] 1 cap.sr PO Q12 Bimatoprost [Lumigan 0.01% Oph Soln 2.5 ml/Bottle] 1 drop 07/26/17 Diclofenac Epolamine [Flector] 1 each TP 07/26/17 Ergocalciferol (Vitamin D2) [Drisdol 50,000 Unit (1.25MG) Capsule] 50,000 unit PO 07/26/17 Furosemide [Lasix 20 mg Tablet] 20 mg PO DAILY 07/26/17 Omeprazole 40 mg PO DAILY 07/26/17 Pitavastatin Calcium [Livalo] 4 mg PO DAILY 07/26/17 Allergies/Adverse Reactions: atorvastatin calcium [From Lipitor] Allergy (Intermediate, Verified 07/25/17 22: 41) MUSCLE CRAMPS, ITCHING rosuvastatin calcium [From Crestor] Allergy (Intermediate, Verified 07/25/17 22: 41) MUSCLE CRAMPS, ITCHING Vzlijtr-Qjk-Lqx Reductase Inhibitor Allergy (Verified 07/25/17 22:41) Review of Systems ROS unobtainable: Due to mental status Review of Systems: This is somewhat limited because of patient's underlying dementia. On direct questioning patient denied any chest pain or shortness of breath. Physical Exam Vital Signs: Temp Pulse Resp BP Pulse Ox 98.3 F 87 20 146/71 H 97 07/26/17 11:40 07/26/17 11:40 07/26/17 11:40 07/26/17 11:40 07/26/17 11:40 Intake & Output 07/25/17 07/26/17 07/27/17 06:59 06:59 06:59 Intake Total 0 Output Total 0 Balance 0 Weight 71 kg Exam: GENERAL: well-nourished and in no acute distress. Patient is alert but not oriented to place time or person. He does however respond appropriately to direct questioning. HEAD: Atraumatic, normocephalic. EYES: Pupils equal round and reactive to light, extraocular movements intact, sclera anicteric, conjunctiva are normal. ENT: TMs normal, nares patent, oropharynx clear without exudates. Moist mucous membranes. No oral ulcerations or bleeding gums noted NECK: supple without lymphadenopathy or JVD. Trachea is central. No cervical or axillary lymphadenopathy noted. Carotids are 2+ LUNGS: Breath sounds bibasilar fine crackles at bases. No significant dullness noted. CHEST: Palpation of chest wall shows no significant chest wall tenderness. 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 ABDOMEN: Soft, no significant tenderness appreciated, normoactive bowel sounds. No guarding, no rebound. No rigidity noted . No masses appreciated. EXTREMITIES: Pedal pulses are 1-2+, no calf tenderness noted, Trace + pedal edema noted. No clubbing or cyanosis. NEUROLOGICAL: Patient is alert but is not able to participate in neurological exam because of patient's current mental status, however no definite neurologic deficit appreciated. PSYCH: Patient cannot fully participate in a neurologic and psych exam because of the patient's current mental status. No definite neurologic focal deficit noted. SKIN: No significant ecchymosis, rash, ulcerations or signs of pruritus noted. MUSCULOSKELETAL EXAM: No significant joint swelling noted. Results Laboratory Results: 07/26/17 02:15 Blood Type O POSITIVE Antibody Screen NEGATIVE EKG Comments: Sinus rhythm, LVH with secondary ST-T wave changes. Impressions: Chest X-Ray 07/25/17 22:26 IMPRESSION: NO ACUTE RADIOGRAPHIC FINDING IN THE CHEST. Femur X-Ray 07/25/17 22:27 IMPRESSION: Comminuted left intertrochanteric femoral neck fracture with mild impaction and varus angulation. Head CT 07/25/17 22:27 IMPRESSION: CHRONIC CHANGES OF ATROPHY AND MICROVASCULAR ISCHEMIA. NO ACUTE PROCESS. EVIDENCE OF ACUTE STROKE: NO. Pelvis X-Ray 07/25/17 22:27 IMPRESSION: Comminuted Left femoral neck fracture. Assessment & Plan - Diagnosis (1) Abnormal EKG Is this a current diagnosis for this admission?: Yes (2) Heart murmur Is this a current diagnosis for this admission?: Yes (3) Hip fracture Qualifiers: Encounter type: initial encounter Fracture type: closed Laterality: left Qualified Code(s): S72.002A - Fracture of unspecified part of neck of left femur, initial encounter for closed fracture (4) Hypertension Qualifiers: Hypertension type: essential hypertension Qualified Code(s): I10 - Essential (primary) hypertension Is this a current diagnosis for this admission?: Yes (5) COPD (chronic obstructive pulmonary disease) Qualifiers: Emphysema type: unspecified Is this a current diagnosis for this admission?: Yes (7) Dyslipidemia Is this a current diagnosis for this admission?: Yes - Notes Notes: Preop cardiovascular examination: Patient in sinus rhythm. Patient has had no angina or angina equivalent symptoms. Patient not in clinical CHF. 2D echo results reviewed. Patient cleared for surgery with average to slightly above average risk due to underlying dementia. We'll be happy to take care of any cardiac problem as it arises. Patient felt to be at acceptable risk for age. Abnormal EKG: Most likely related to LVH. Do not feel ischemia workup is indicated. Heart murmur: Most likely flow murmur based on 2D echo review. However initially I did not want to rule out any aortic stenosis. This was ruled out. Hypertension: Recommend liberal control. COPD: Currently stable. Anemia: Consider correcting anemia prior to surgery. Patient to be seen by trailer sections assembler. Dyslipidemia: Continue per pitavastatin therapy - Time Time Spent: 30 to 50 Minutes Medications reviewed and adjusted accordingly: Yes
--- NOTE | 2017-07-26 13:46 | PDOC H&P ---
History of Present Illness Admission Date/PCP: 07/26/17 00:26 TASHIA JUAREZ MD Patient complains of: FallAnd the left-sided hip pain History of Present Illness: Patient is a 72-year-old male who has a history of end-stage renal disease. He fell on . said she heard a thud in the bedroom and she went and found him lying on the floor. He complains only of pain in his left hip and thigh. He is able to answer most of my questions. He denies any recent fevers or infections. His also denies him having any recent fevers or infections. Initially they called ambulance but he did not want to go to the hospital. Since then he is unable to walk or bear any type of weight and therefore they brought him to the ER today. The denies that he has been confused. The daughter herself feels that he is little more confused than usual. The admits that she did not want to go to dialysis on Monday so therefore they skipped. He supposed to go to dialysis tomorrow. Last dialysis was Monday. No Vomiting. No diarrhea. No chest pain. No abdominal pain. No back pain. No neck pain. No other complaints at this time. This history was reviewed and confirmed patient speaks very little. He also has underlying dementia. Patient's daughter is the surrogate decision maker.. Initial workup in the ER including the CT of the head was all negative Have a history of the multiple stroke in the past patient is currently on a hemodialysis Patient have a GI workup was done By Dr. Ridley within the last year was all stable Used to see special assemblies supervisor for the anemia Patient also see a Dr. Jane for the end-stage renal disease Also see her [facility] for the pulmonary fibrosis and currently all stable Patient also see a vascular surgeon in [place] for peripheral vascular disease Past Medical History Cardiac Medical History: Reports: Coronary Artery Disease, Myocardial Infarction , Hyperlipidema, Hypertension Pulmonary Medical History: Reports: Chronic Obstructive Pulmonary Disease (COPD) Denies: Asthma, Bronchitis, Pneumonia Pulmonary History Note: Pulmonary fibrosis Neurological Medical History: Reports: Ischemic CVA Denies: Seizures Neurological History Note: Multiple TIA and stroke in the past Renal/ Medical History: Reports: End Stage Renal Disease GI Medical History: Reports: Gastroesophageal Reflux Disease Musculoskeltal Medical History: Denies: Arthritis Psychiatric Medical History: Reports: Dementia, Depression Hematology: Reports: Anemia Past Surgical History Past Surgical History: Reports: Vascular Surgery Social History Information Source: Relative Smoking Status: Unknown if Ever Smoked Frequency of Alcohol Use: None Hx Recreational Drug Use: No Hx Prescription Drug Abuse: No - Advance Directive Resuscitation Status: Full Code Family History Family History: Reviewed & Not Pertinent, CAD Parental Family History Reviewed: Yes Children Family History Reviewed: Yes Sibling(s) Family History Reviewed.: Yes Medication/Allergy Home Medications: Amlodipine Besylate [Norvasc 5 mg Tablet] 5 mg PO DAILY 07/26/17 Aspirin/Dipyridamole [Aggrenox 25 mg/200 mg Capsule SA] 1 cap.sr PO Q12 Bimatoprost [Lumigan 0.01% Oph Soln 2.5 ml/Bottle] 1 drop 07/26/17 Diclofenac Epolamine [Flector] 1 each TP 07/26/17 Ergocalciferol (Vitamin D2) [Drisdol 50,000 Unit (1.25MG) Capsule] 50,000 unit PO 07/26/17 Furosemide [Lasix 20 mg Tablet] 20 mg PO DAILY 07/26/17 Omeprazole 40 mg PO DAILY 07/26/17 Pitavastatin Calcium [Livalo] 4 mg PO DAILY 07/26/17 Allergies/Adverse Reactions: atorvastatin calcium [From Lipitor] Allergy (Intermediate, Verified 07/25/17 22: 41) MUSCLE CRAMPS, ITCHING rosuvastatin calcium [From Crestor] Allergy (Intermediate, Verified 07/25/17 22: 41) MUSCLE CRAMPS, ITCHING Xluptlq-[id number]-Ywq Reductase Inhibitor Allergy (Verified 07/25/17 22:41) Review of Systems All systems: reviewed and no additional remarkable complaints except as stated Physical Exam Vital Signs: Temp Pulse Resp BP Pulse Ox 98.3 F 87 20 146/71 H 97 07/26/17 11:40 07/26/17 11:40 07/26/17 11:40 07/26/17 11:40 07/26/17 11:40 Intake & Output 07/25/17 07/26/17 07/27/17 06:59 06:59 06:59 Intake Total 0 240 Output Total 0 Balance 0 240 Weight 71 kg General appearance: PRESENT: no acute distress, thin, well-nourished Head exam: PRESENT: atraumatic, normocephalic Eye exam: PRESENT: conjunctiva pink, EOMI, PERRLA. ABSENT: scleral icterus Ear exam: PRESENT: normal external ear exam Mouth exam: PRESENT: moist, tongue midline Neck exam: PRESENT: full ROM. ABSENT: carotid bruit, JVD, lymphadenopathy, thyromegaly Respiratory exam: PRESENT: clear to auscultation estuardo Cardiovascular exam: PRESENT: RRR. ABSENT: diastolic murmur, rubs, systolic murmur Pulses: PRESENT: normal dorsalis pedis pul, +2 pedal pulses bilateral Vascular exam: PRESENT: normal capillary refill GI/Abdominal exam: PRESENT: normal bowel sounds, soft. ABSENT: distended, guarding, mass, organolmegaly, rebound, tenderness Rectal exam: PRESENT: deferred Extremities exam: ABSENT: pedal edema Neurological exam: PRESENT: alert, awake, oriented to person, oriented to place , oriented to time, oriented to situation. ABSENT: motor sensory deficit Psychiatric exam: PRESENT: appropriate affect, depressed, normal mood. ABSENT: homicidal ideation, suicidal ideation Skin exam: PRESENT: dry, intact, warm. ABSENT: cyanosis, rash Results Laboratory Results: 07/26/17 02:15 Blood Type O POSITIVE Antibody Screen NEGATIVE Impressions: Chest X-Ray 07/25/17 22:26 IMPRESSION: NO ACUTE RADIOGRAPHIC FINDING IN THE CHEST. Femur X-Ray 07/25/17 22:27 IMPRESSION: Comminuted left intertrochanteric femoral neck fracture with mild impaction and varus angulation. Head CT 07/25/17 22:27 IMPRESSION: CHRONIC CHANGES OF ATROPHY AND MICROVASCULAR ISCHEMIA. NO ACUTE PROCESS. EVIDENCE OF ACUTE STROKE: NO. Pelvis X-Ray 07/25/17 22:27 IMPRESSION: Comminuted Left femoral neck fracture. Assessment & Plan - Diagnosis (1) Hip fracture Qualifiers: Encounter type: initial encounter Fracture type: closed Laterality: left Qualified Code(s): S72.002A - Fracture of unspecified part of neck of left femur, initial encounter for closed fracture Is this a current diagnosis for this admission?: Yes Plan: Consut ortho Further management (2) End stage renal disease Is this a current diagnosis for this admission?: Yes Plan: Consult the nephrology for hemodialysis (3) Anemia Qualifiers: Anemia type: due to chronic kidney disease Chronic kidney disease stage: on chronic dialysis Qualified Code(s): N18.6 - End stage renal disease; D63.1 - Anemia in chronic kidney disease; D63.1 - Anemia in chronic kidney disease; Z99.2 - Dependence on renal dialysis; Z99.2 - Dependence on renal dialysis; Z99.2 - Dependence on renal dialysis; Z99.2 - Dependence on renal dialysis Is this a current diagnosis for this admission?: Yes Plan: We will transfuse her 2 units of the blood before the proceduresWill get the iron studyAt this point no sign of any GI blood loss (4) Pulmonary fibrosis Is this a current diagnosis for this admission?: Yes Plan: Chest x-rays all stable continues to DuoNeb nebulizer (5) Peripheral vascular disease Is this a current diagnosis for this admission?: Yes Plan: Status post surgery on the left leg (6) Vertebral compression fracture Qualifiers: Encounter type: subsequent encounter Is this a current diagnosis for this admission?: Yes Plan: Patient's already seen by the pain management and scheduled for vertebroplasty (7) Vascular dementia Qualifiers: Dementia behavioral disturbance: without behavioral disturbance Qualified Code(s): F01.50 - Vascular dementia without behavioral disturbance Is this a current diagnosis for this admission?: Yes Plan: Due to the multiple stroke in the past (8) Cerebrovascular disorder Is this a current diagnosis for this admission?: Yes Plan: Continues to Aggrenox after the procedures (9) Dyslipidemia Is this a current diagnosis for this admission?: Yes Plan: Continues to statin (10) Hypertension Qualifiers: Hypertension type: essential hypertension Qualified Code(s): I10 - Essential (primary) hypertension Is this a current diagnosis for this admission?: Yes Plan: Continues to current medications - Time Time Spent: 50 to 70 Minutes Medications reviewed and adjusted accordingly: Yes Anticipated discharge: SNF, Other Within: Other - Inpatient Certification Medical Necessity: Need Close Monitoring Due to Risk of Patient Decompensation Post Hospital Care: D/C Talent Manager Documentation - Plan Summary Plan Summary: Consult the cardiology for the preop see other MD orders discussed with the family about the patient's current conditions
[2017-07-26] MEDS ORDERED: IPRATROPIUM/ALBUTEROL 0.5-2.5 MG/3 ML AMPUL NEB PRN (13:47)
[2017-07-26] MEDS ORDERED: HEPARIN SOD (PORCINE) 1,000 UNIT/ML 10 ML VIAL IV PRN (14:48)
--- NOTE | 2017-07-26 17:12 | PDOC CONSULTATION ---
Consultation Consult Date: 07/26/17 Attending physician:: TASHIA JUAREZ Consult reason:: I was asked by Dr. Juarez to see the patient to supervise dialysis while here in the hospital. History of Present Illness Admission Date/PCP: 07/26/17 00:26 TASHIA JUAREZ MD History of Present Illness: Patient is a 72-year-old male known to me with end-stage renal disease on maintenance hemodialysis on Mondays, Wednesdays and Fridays. He fell on . said she heard a thud in the bedroom and she went and found him lying on the floor. He complains only of pain in his left hip and thigh. His also denies him having any recent fevers or infections. Initially they called ambulance but he did not want to go to the hospital. Since then he is unable to walk or bear any type of weight and therefore they brought him to the ER today. The admits that that he has been confused at times. The daughter herself feels that he is little more confused than usual. The admits that he did not want to go to dialysis on Monday so therefore they skipped. He supposed to go to dialysis today. Last dialysis was Monday. No Vomiting. No diarrhea. No chest pain. No abdominal pain. No back pain. No neck pain. No other complaints at this time per . Patient and daughter also confirmed that the patient has not been eating very well. They said if he was able to drink 1 Nepro drink and his protein bar that would be a good day. When I saw the patient today during dialysis treatment he barely communicated. He has not been cooperative with our dialysis nurse as well. Esther, our dialysis nurse tells me that the patient does not want to have oral temperature taken and at one point he held her wrist. He has not spoken a word to me while I was evaluating him during dialysis. When I asked him a question is simply closes his eyes. Nevertheless he did tolerate dialysis well without any problems. He received 2 units of packed RBC during dialysis as ordered by Dr. Juarez. We were able to take ultrafiltration of 1 L plus the volume of the blood. Past Medical History Cardiac Medical History: Reports: Coronary Artery Disease, Hyperlipidemia, Myocardial Infarction, Peripheral Vascular Disease Pulmonary Medical History: Reports: Chronic Obstructive Pulmonary Disease (COPD) , Other - Interstitial lung disease followed by pulmonary service at [facility]. EENT Medical History: Reports: Other - Glaucoma Neurological Medical History: Reports: Ischemic CVA Renal/ Medical History: Reports: End Stage Renal Disease, Renal Osteodystropy , Secondary Hyperparathyroidism GI Medical History: Reports: Gastroesophageal Reflux Disease Psychiatric Medical History: Reports: Dementia, Depression Hematology Medical History: Reports Anemia of Chronic Kidney Disease Past Surgical History Past Surgical History: Reports: Dialysis Access Surgery AVF, Femoral-Popliteal Bypass Graft, Vascular Surgery - PermCath placement for dialysis, Other - Bilateral cataract surgery, Social History Information Source: Relative Lives with: Spouse/Significant other Smoking Status: Former Smoker Frequency of Alcohol Use: None Hx Recreational Drug Use: No Hx Prescription Drug Abuse: No - Advance Directive Resuscitation Status: Full Code Family History Family History: CAD - Mother Parental Family History Reviewed: Yes Children Family History Reviewed: Unknown Sibling(s) Family History Reviewed.: Unknown Medication/Allergy Home Medications: Amlodipine Besylate [Norvasc 5 mg Tablet] 5 mg PO DAILY 07/26/17 Aspirin/Dipyridamole [Aggrenox 25 mg/200 mg Capsule SA] 1 cap.sr PO Q12 Bimatoprost [Lumigan 0.01% Oph Soln 2.5 ml/Bottle] 1 drop 07/26/17 Diclofenac Epolamine [Flector] 1 each TP 07/26/17 Ergocalciferol (Vitamin D2) [Drisdol 50,000 Unit (1.25MG) Capsule] 50,000 unit PO 07/26/17 Furosemide [Lasix 20 mg Tablet] 20 mg PO DAILY 07/26/17 Omeprazole 40 mg PO DAILY 07/26/17 Pitavastatin Calcium [Livalo] 4 mg PO DAILY 07/26/17 Allergies/Adverse Reactions: atorvastatin calcium [From Lipitor] Allergy (Intermediate, Verified 07/25/17 22: 41) MUSCLE CRAMPS, ITCHING rosuvastatin calcium [From Crestor] Allergy (Intermediate, Verified 07/25/17 22: 41) MUSCLE CRAMPS, ITCHING Einmeqk-Ylb-Tkw Reductase Inhibitor Allergy (Verified 07/25/17 22:41) Review of Systems ROS unobtainable: Due to mental status Physical Exam Vital Signs: Temp Pulse Resp BP Pulse Ox 98.1 F 89 15 142/85 H 100 07/26/17 15:08 07/26/17 15:08 07/26/17 15:08 07/26/17 15:08 07/26/17 15:08 Intake & Output 07/25/17 07/26/17 07/27/17 06:59 06:59 06:59 Intake Total 0 840 Output Total 0 0 Balance 0 840 Weight 71 kg Vital signs during dialysis: Blood pressure 132/77, heart rate of 90, blood flow rate of 350 mL/min, dialysate flow rate of 600 mL/min. Exam: General appearance: no acute distress, well-developed, well-nourished, nonverbal and currently does not answer questions Head exam: PRESENT: atraumatic, normocephalic Eye exam: PRESENT: Conjunctiva pale, EOMI, PERRLA. Patient closes his eyes when asked questions ABSENT: conjunctival injection, scleral icterus Mouth exam: PRESENT: moist, neck supple, tongue midline Neck exam: PRESENT: full ROM. ABSENT: carotid bruit, JVD, lymphadenopathy, thyromegaly Respiratory exam: PRESENT: Diminished r to auscultation bilaterally. ABSENT: rales, rhonchi, stridor, wheezes Cardiovascular exam: PRESENT: RRR, +S1, +S2. Grade 2/6 systolic murmur Pulses: PRESENT: normal radial pulses, normal dorsalis pedis pulses GI/Abdominal exam: PRESENT: normal bowel sounds, soft. ABSENT: guarding, mass, tenderness Rectal exam: deferred Extremities exam: PRESENT: full ROM. ABSENT: calf tenderness, pedal edema Musculoskeletal: PRESENT: full ROM. Left hip swelling with some tenderness ABSENT: deformity Neurological exam: PRESENT: alert, Awake, orientation cannot be determined as patient does not answer questions, reflexes normal, CN II-XII grossly intact. ABSENT: motor sensory deficit Psychiatric exam: PRESENT: appropriate affect, normal mood. ABSENT: homicidal ideation, suicidal ideation Skin exam: PRESENT: intact, dry, warm. ABSENT: rash Results Laboratory Results: 07/26/17 02:15 Blood Type O POSITIVE Antibody Screen NEGATIVE Impressions: Chest X-Ray 07/25/17 22:26 IMPRESSION: NO ACUTE RADIOGRAPHIC FINDING IN THE CHEST. Femur X-Ray 07/25/17 22:27 IMPRESSION: Comminuted left intertrochanteric femoral neck fracture with mild impaction and varus angulation. Head CT 07/25/17 22:27 IMPRESSION: CHRONIC CHANGES OF ATROPHY AND MICROVASCULAR ISCHEMIA. NO ACUTE PROCESS. EVIDENCE OF ACUTE STROKE: NO. Pelvis X-Ray 07/25/17 22:27 IMPRESSION: Comminuted Left femoral neck fracture. Assessment & Plan - Diagnosis (1) Fracture of femoral neck, left Qualifiers: Fracture type: closed Is this a current diagnosis for this admission?: Yes Plan: This is due to a fall. Orthopedic surgeon consulted. (2) End stage renal disease Is this a current diagnosis for this admission?: Yes Plan: Patient's last dialysis was a week ago Monday so he is due for dialysis today. We did will do dialysis today for 3 hours, using the patient's PermCath, with 3 potassium bath, blood flow rate of 350 mL per minute, dialysate flow rate of 600 mL per minute, ultrafiltration 1 L, no and no Procrit during dialysis. Patient tolerated dialysis well. We will continue hemodialysis support while here in the hospital. Today spoke to the patient's and daughter regarding plan on treatment for his ESRD. As patient's dementia has has increasingly progress, patient missed his dialysis occasionally as an outpatient. So today I talked to them regarding plan for continued dialysis versus hospice. Patient daughter wished to continue hemodialysis treatment for as long as patient agrees and cooperates to have it done. They are aware of what hospice entails and will let me know if it comes at that point. (3) Anemia Qualifiers: Anemia type: due to chronic kidney disease Chronic kidney disease stage: on chronic dialysis Qualified Code(s): N18.6 - End stage renal disease; D63.1 - Anemia in chronic kidney disease; D63.1 - Anemia in chronic kidney disease; Z99.2 - Dependence on renal dialysis; Z99.2 - Dependence on renal dialysis; Z99.2 - Dependence on renal dialysis; Z99.2 - Dependence on renal dialysis Is this a current diagnosis for this admission?: Yes Plan: Patient was transfused 2 units of packed RBC today during dialysis. (4) Vascular dementia Qualifiers: Dementia behavioral disturbance: without behavioral disturbance Qualified Code(s): F01.50 - Vascular dementia without behavioral disturbance Is this a current diagnosis for this admission?: Yes Plan: This is been progressive especially the last few months. (5) Hypertension Qualifiers: Hypertension type: essential hypertension Qualified Code(s): I10 - Essential (primary) hypertension Is this a current diagnosis for this admission?: Yes Plan: Currently fairly controlled. - Notes Notes: Thank you very much for this consultation. I will continue to supervise his dialysis while here in the hospital. - Time Time Spent: 50 to 70 Minutes
[2017-07-26] MEDS ORDERED: DEXTROSE 40% GEL 15 GM TUBE PO PRN ×2 (17:28)
[2017-07-26] MEDS ORDERED: DEXTROSE 50%-WATER 25 GM/50 ML DISP.SYRIN IV PRN ×2 (17:28)
[2017-07-26] MEDS ORDERED: GLUCAGON,HUMAN RECOMB 1 MG INJ SUBCUT PRN (17:28)
[2017-07-26] MEDS ORDERED: ATORVASTATIN CALCIUM 20 MG TABLET PO SCH (22:00)
[2017-07-27 05:25] LABS: ABSOLUTE BASOPHILS # (AUTO) 0.1 10^3/uL (0.0-0.2); ABSOLUTE EOSINOPHILS # (AUTO) 0.4 10^3/uL (0.0-0.6); ABSOLUTE LYMPHOCYTES (AUTO) 1.5 10^3/uL (0.5-4.7); ABSOLUTE MONOCYTES (AUTO) 0.7 10^3/uL (0.1-1.4); ABSOLUTE NEUT (AUTO) 5.3 10^3/uL (1.7-8.2); BASOPHILS % (AUTO) 0.8 % (0-2); EOSINOPHILS % (AUTO) 5.1 % (0-6); HEMATOCRIT 30.7 % (37.9-51.0); LYMPHOCYTES % (AUTO) 18.6 % (13-45); MEAN CORPUSCULAR HEMOGLOBIN 29.2 pg (27.0-33.4); MEAN CORPUSCULAR HGB CONC 33.8 g/dL (32.0-36.0); MEAN CORPUSCULAR VOLUME 87 fl (80-97); MONOCYTES % (AUTO) 8.9 % (3-13); PLATELET COUNT 112 10^3/uL (150-450); RED BLOOD COUNT 3.55 10^6/uL (4.35-5.55); SEGMENTED NEUTROPHILS % (AUTO) 66.6 % (42-78); TOTAL CELLS COUNTED % (AUTO) 100 %
[2017-07-27 05:30] LABS: ANION GAP 12 (5-19); BLOOD UREA NITROGEN 38 mg/dL (7-20); CALCIUM 8.6 mg/dL (8.4-10.2); CARBON DIOXIDE 29 mmol/L (22-30); CHLORIDE 100 mmol/L (98-107); GLUCOSE 100 mg/dL (75-110); HEMOGLOBIN 10.4 g/dL (13.5-17.0); POTASSIUM 4.5 mmol/L (3.6-5.0); SODIUM 140.6 mmol/L (137-145)
[2017-07-27] MEDS: HEPARIN SOD (PORCINE) 5,000 UNIT/ML 1 ML SYRINGE SUBCUT SCH ×3 (05:38→23:02)
[2017-07-27] MEDS: LANSOPRAZOLE 30 MG TAB.RAP.DR PO SCH (05:38)
--- NOTE | 2017-07-27 07:58 | EKG REPORT ---
SEVERITY:- ABNORMAL ECG - SINUS RHYTHM LEFT VENTRICULAR HYPERTROPHY : Confirmed by: Liana Knowles MD 27-Jul-2017 07:57:46
--- NOTE | 2017-07-27 09:39 | PDOC PROGRESS REPORT ---
Subjective Progress Note for:: 07/27/17 Subjective:: Patient is currently doing fair Patient scheduled for the left hip surgery Patient seen by cardiology and nephrology Patient's chest x-ray is all stable Discussed with the family on the bedside about the patient's current conditions Patient's denied any chest pain denied any shortness of the breath Reason For Visit: HIP FX Physical Exam Vital Signs: Temp Pulse Resp BP Pulse Ox 98.2 F 83 16 184/85 H 98 07/27/17 07:45 07/27/17 09:22 07/27/17 09:22 07/27/17 07:45 07/27/17 09:22 Intake & Output 07/26/17 07/27/17 07/28/17 06:59 06:59 06:59 Intake Total 0 973 Output Total 0 1000 Balance 0 -27 Weight 71 kg 55.7 kg General appearance: PRESENT: no acute distress, well-developed, well-nourished Head exam: PRESENT: atraumatic, normocephalic Eye exam: PRESENT: conjunctiva pink, EOMI, PERRLA. ABSENT: scleral icterus Ear exam: PRESENT: normal external ear exam Mouth exam: PRESENT: moist, tongue midline Neck exam: PRESENT: full ROM. ABSENT: carotid bruit, JVD, lymphadenopathy, thyromegaly Respiratory exam: PRESENT: clear to auscultation estuardo Cardiovascular exam: PRESENT: RRR. ABSENT: diastolic murmur, rubs, systolic murmur Pulses: PRESENT: normal dorsalis pedis pul, +2 pedal pulses bilateral Vascular exam: PRESENT: normal capillary refill GI/Abdominal exam: PRESENT: normal bowel sounds, soft. ABSENT: distended, guarding, mass, organolmegaly, rebound, tenderness Rectal exam: PRESENT: deferred Extremities exam: ABSENT: pedal edema Neurological exam: PRESENT: alert, awake, oriented to person, oriented to place , oriented to time, oriented to situation, CN II-XII grossly intact. ABSENT: motor sensory deficit Psychiatric exam: PRESENT: appropriate affect, normal mood. ABSENT: homicidal ideation, suicidal ideation Skin exam: PRESENT: dry, intact, warm. ABSENT: cyanosis, rash Results Laboratory Results: 07/27/17 04:33 07/27/17 04:33 07/26/17 07/27/17 07/27/17 02:15 04:33 04:33 WBC 8.0 RBC 3.55 L Hgb 10.4 L D Hct 30.7 L MCV 87 MCH 29.2 MCHC 33.8 RDW 16.0 H Plt Count 112 L Seg Neutrophils % 66.6 Lymphocytes % 18.6 Monocytes % 8.9 Eosinophils % 5.1 Basophils % 0.8 Absolute Neutrophils 5.3 Absolute Lymphocytes 1.5 Absolute Monocytes 0.7 Absolute Eosinophils 0.4 Absolute Basophils 0.1 Sodium 140.6 Potassium 4.5 Chloride 100 Carbon Dioxide 29 Anion Gap 12 BUN 38 H Creatinine 4.28 H Est GFR ( Amer) 17 L Est GFR (Non-Af Amer) 14 L Glucose 100 Calcium 8.6 Blood Type O POSITIVE Antibody Screen NEGATIVE Impressions: Chest X-Ray 07/25/17 22:26 IMPRESSION: NO ACUTE RADIOGRAPHIC FINDING IN THE CHEST. Femur X-Ray 07/25/17 22:27 IMPRESSION: Comminuted left intertrochanteric femoral neck fracture with mild impaction and varus angulation. Head CT 07/25/17 22:27 IMPRESSION: CHRONIC CHANGES OF ATROPHY AND MICROVASCULAR ISCHEMIA. NO ACUTE PROCESS. EVIDENCE OF ACUTE STROKE: NO. Pelvis X-Ray 07/25/17 22:27 IMPRESSION: Comminuted Left femoral neck fracture. Assessment & Plan - Diagnosis (1) Hip fracture Qualifiers: Encounter type: initial encounter Fracture type: closed Laterality: left Qualified Code(s): S72.002A - Fracture of unspecified part of neck of left femur, initial encounter for closed fracture Is this a current diagnosis for this admission?: Yes Plan: Patient is going for the surgery today currently medically stable (2) End stage renal disease Is this a current diagnosis for this admission?: Yes Plan: Consult the nephrology for hemodialysis (3) Anemia Qualifiers: Anemia type: due to chronic kidney disease Chronic kidney disease stage: on chronic dialysis Qualified Code(s): N18.6 - End stage renal disease; D63.1 - Anemia in chronic kidney disease; D63.1 - Anemia in chronic kidney disease; Z99.2 - Dependence on renal dialysis; Z99.2 - Dependence on renal dialysis; Z99.2 - Dependence on renal dialysis; Z99.2 - Dependence on renal dialysis Is this a current diagnosis for this admission?: Yes Plan: Patients get that 2 units of the blood yesterday will continues to monitor the patient's (4) Pulmonary fibrosis Is this a current diagnosis for this admission?: Yes Plan: Chest x-rays all stable continues to DuoNeb nebulizer (5) Peripheral vascular disease Is this a current diagnosis for this admission?: Yes Plan: Status post surgery on the left leg (6) Vertebral compression fracture Qualifiers: Encounter type: subsequent encounter Is this a current diagnosis for this admission?: Yes Plan: Patient's already seen by the pain management and scheduled for vertebroplasty (7) Vascular dementia Qualifiers: Dementia behavioral disturbance: without behavioral disturbance Qualified Code(s): F01.50 - Vascular dementia without behavioral disturbance Is this a current diagnosis for this admission?: Yes Plan: Due to the multiple stroke in the past (8) Cerebrovascular disorder Is this a current diagnosis for this admission?: Yes Plan: Continues to Aggrenox after the procedures (9) Dyslipidemia Is this a current diagnosis for this admission?: Yes Plan: Continues to statin (10) Hypertension Qualifiers: Hypertension type: essential hypertension Qualified Code(s): I10 - Essential (primary) hypertension Is this a current diagnosis for this admission?: Yes Plan: Continues to current medications - Time Time Spent with patient: 15-24 minutes Medications reviewed and adjusted accordingly: Yes Anticipated discharge: SNF, Other Within: Other - Inpatient Certification Medical Necessity: Need Close Monitoring Due to Risk of Patient Decompensation Post Hospital Care: D/C Director Of Property Management Documentation - Plan Summary Plan Summary: Patient is currently medically stable will reevaluate after the surgery discussed with the patient and the family member regarding the patient's current conditions with the multiple comorbidity
[2017-07-27] MEDS ORDERED: (PENDING PHARMACY ID) (Pitavastatin Calcium [Livalo] 4 MG) PO SCH (10:00)
[2017-07-27] MEDS ORDERED: HYDRALAZINE HCL INJ/PF 20 MG/1 ML SDV IV PRN (12:44)
[2017-07-27] MEDS: AMLODIPINE BESYLATE 5 MG TABLET PO SCH (14:04)
[2017-07-27] MEDS: FUROSEMIDE 20 MG TABLET PO SCH (14:05)
--- NOTE | 2017-07-27 14:22 | PDOC CONSULTATION ---
Consultation Consult Date: 07/26/17 Consult reason:: Left intertrochanteric hip fracture History of Present Illness Admission Date/PCP: 07/26/17 00:26 TASHIA JUAREZ MD Patient complains of: Left hip pain. History of Present Illness: 80-year-old renal dialysis patient status post fall in the kitchen. Injury occurred on 07/25/2017. Patient had inability to stand and weight-bear. He was brought to the hospital by EMS. Upon arrival he was diagnosed with a displaced left intertrochanteric hip fracture. Patient family who gave the history denies any other extremity injuries. Denies any previous surgery on the left hip. Patient complains pain equal to 5 out of 5 with attempted range of motion or weightbearing. Family denies any numbness or tingling or paresthesias of the left lower extremity. Denies any other extremity injuries. Denies any loss of consciousness. Past Medical History Cardiac Medical History: Reports: Myocardial Infarction, Hyperlipidema, Hypertension, Peripheral Vascular Disease Denies: Coronary Artery Disease Pulmonary Medical History: Reports: Chronic Obstructive Pulmonary Disease (COPD) , Other - Interstitial lung disease followed by pulmonary service at [place]. Denies: Asthma, Bronchitis, Pneumonia EENT Medical History: Reports: Other - Glaucoma Neurological Medical History: Reports: Ischemic CVA Denies: Seizures Renal/ Medical History: Reports: End Stage Renal Disease GI Medical History: Reports: Gastroesophageal Reflux Disease Musculoskeltal Medical History: Denies: Arthritis Psychiatric Medical History: Reports: Dementia, Depression Hematology: Reports: Other - Glaucoma Denies: Anemia Past Surgical History Past Surgical History: Reports: Vascular Surgery - PermCath placement for dialysis, Other - Bilateral cataract surgery, Social History Lives with: Spouse/Significant other Smoking Status: Unknown if Ever Smoked Frequency of Alcohol Use: None Hx Recreational Drug Use: No Hx Prescription Drug Abuse: No - Advance Directive Resuscitation Status: Full Code Family History Family History: Reviewed & Not Pertinent, CAD Parental Family History Reviewed: No Children Family History Reviewed: No Sibling(s) Family History Reviewed.: No Medication/Allergy Home Medications: Amlodipine Besylate [Norvasc 5 mg Tablet] 5 mg PO DAILY 07/26/17 Aspirin/Dipyridamole [Aggrenox 25 mg/200 mg Capsule SA] 1 cap.sr PO Q12 Ergocalciferol (Vitamin D2) [Drisdol 50,000 Unit (1.25MG) Capsule] 50,000 unit PO SERRANO@1000 07/26/17 Furosemide [Lasix 20 mg Tablet] 20 mg PO DAILY 07/26/17 Omeprazole 40 mg PO DAILY 07/26/17 Pitavastatin Calcium [Livalo] 4 mg PO DAILY 07/26/17 Allergies/Adverse Reactions: atorvastatin calcium [From Lipitor] Allergy (Intermediate, Verified 07/25/17 22: 41) MUSCLE CRAMPS, ITCHING rosuvastatin calcium [From Crestor] Allergy (Intermediate, Verified 07/25/17 22: 41) MUSCLE CRAMPS, ITCHING Gifkyyg-Ygw-Zrb Reductase Inhibitor Allergy (Verified 07/25/17 22:41) Review of Systems ROS unobtainable: Due to mental status Physical Exam Vital Signs: Temp Pulse Resp BP Pulse Ox 36.6 C 87 18 181/94 H 99 07/27/17 11:51 07/27/17 11:51 07/27/17 11:51 07/27/17 11:51 07/27/17 11:51 Intake & Output 07/26/17 07/27/17 07/28/17 06:59 06:59 06:59 Intake Total 0 973 Output Total 0 1000 Balance 0 -27 Weight 71 kg 55.7 kg General appearance: PRESENT: no acute distress Eye exam: PRESENT: EOMI. ABSENT: nystagmus Respiratory exam: PRESENT: symmetrical, unlabored. ABSENT: accessory muscle use , tachypnea Pulses: PRESENT: normal dorsalis pedis pul Vascular exam: PRESENT: normal capillary refill GI/Abdominal exam: PRESENT: soft. ABSENT: organolmegaly, rigid Skin exam: PRESENT: intact. ABSENT: mottled, rash Adult Front & Back Image: 1 - Short and mildly externally rotated left lower extremity. Inability to do range of motion second the pain. Tender to palpation over the groin and lateral aspect. Good capillary refill and good sensation to light touch grossly. Results Laboratory Results: 07/27/17 04:33 07/27/17 04:33 07/26/17 07/27/17 07/27/17 02:15 04:33 04:33 WBC 8.0 RBC 3.55 L Hgb 10.4 L D Hct 30.7 L MCV 87 MCH 29.2 MCHC 33.8 RDW 16.0 H Plt Count 112 L Seg Neutrophils % 66.6 Lymphocytes % 18.6 Monocytes % 8.9 Eosinophils % 5.1 Basophils % 0.8 Absolute Neutrophils 5.3 Absolute Lymphocytes 1.5 Absolute Monocytes 0.7 Absolute Eosinophils 0.4 Absolute Basophils 0.1 Sodium 140.6 Potassium 4.5 Chloride 100 Carbon Dioxide 29 Anion Gap 12 BUN 38 H Creatinine 4.28 H Est GFR ( Amer) 17 L Est GFR (Non-Af Amer) 14 L Glucose 100 Calcium 8.6 Blood Type O POSITIVE Antibody Screen NEGATIVE Impressions: Chest X-Ray 07/25/17 22:26 IMPRESSION: NO ACUTE RADIOGRAPHIC FINDING IN THE CHEST. Femur X-Ray 07/25/17 22:27 IMPRESSION: Comminuted left intertrochanteric femoral neck fracture with mild impaction and varus angulation. Head CT 07/25/17 22:27 IMPRESSION: CHRONIC CHANGES OF ATROPHY AND MICROVASCULAR ISCHEMIA. NO ACUTE PROCESS. EVIDENCE OF ACUTE STROKE: NO. Pelvis X-Ray 07/25/17 22:27 IMPRESSION: Comminuted Left femoral neck fracture. Assessment & Plan - Diagnosis (1) Intertrochanteric fracture of left hip Qualifiers: Encounter type: initial encounter Fracture type: closed Fracture alignment: displaced Qualified Code(s): S72.142A - Displaced intertrochanteric fracture of left femur, initial encounter for closed fracture Is this a current diagnosis for this admission?: Yes Plan: 80-year-old gentleman with left intertrochanteric hip fracture. He is amenable to cephalo-medullary nailing. Patient will have dialysis on 1226 and plan for ORIF on 1227. In the meantime he can be bedrest and pain control. Hold anticoagulation after midnight and place him n.p.o. after midnight. Discussed the risk and benefits of the surgery with the family.
[2017-07-27] MEDS ORDERED: LIDOCAINE 2% INJ-PF (20 MG/ML) 2 ML AMPUL ONE (15:14)
[2017-07-27] MEDS ORDERED: GLYCOPYRROLATE INJ 0.4 MG/2 ML VIAL ONE (15:14)
[2017-07-27] MEDS ORDERED: PHENYLEPHRINE HCL INJ/PF 10 MG/1 ML SDV ONE (15:14)
[2017-07-27] MEDS ORDERED: ONDANSETRON HCL INJ/PF 4 MG/2 ML SDV ONE (15:14)
[2017-07-27] MEDS ORDERED: ROCURONIUM BROMIDE INJ 50 MG/5 ML VIAL IV ONE (15:14)
[2017-07-27] MEDS ORDERED: NEOSTIGMINE METHYLSULFATE 10 MG/10 ML VIAL ONE (15:14)
[2017-07-27] MEDS ORDERED: NORMAL SALINE 1000 ML 1,000 ML IV PRN (17:59)
[2017-07-27] MEDS ORDERED: PROPOFOL INJ 200 MG/20 ML VIAL IV ONE (18:29)
[2017-07-27] MEDS ORDERED: FENTANYL CITRATE INJ/PF 100 MCG/2 ML AMPUL ONE (18:29)
[2017-07-27] MEDS ORDERED: CEFAZOLIN INJ 1 GM VIAL ONE (18:41)
[2017-07-27] MEDS ORDERED: FENTANYL CITRATE INJ/PF 100 MCG/2 ML AMPUL IV PRN ×3 (19:18)
[2017-07-27] MEDS ORDERED: DIPHENHYDRAMINE HCL 50 MG/ML VIAL IV PRN (19:18)
[2017-07-27] MEDS ORDERED: PROMETHAZINE HCL INJ 25 MG/1 ML VIAL IV PRN (19:18)
--- NOTE | 2017-07-27 20:18 | Operative Report ---
Operative Report DATE OF SURGERY: 07/27/17 PREOPERATIVE DIAGNOSIS: Left intertrochanteric hip fracture POSTOPERATIVE DIAGNOSIS: Same OPERATION: Cephalo-medullary nailing of left hip fracture SURGEON: ANTHONY CHAUDHARI ANESTHESIA: GA TISSUE REMOVED OR ALTERED: none COMPLICATIONS: none ESTIMATED BLOOD LOSS: 100mL INTRAOPERATIVE FINDINGS: as above PROCEDURE: Patient was seen and evaluated in the preoperative holding area. The left lower extremity was initialized and marked. Patient received 1 g Ancef IV for bacterial prophylaxis. Patient was taken back to the operative room where transferred operative table. Patient was placed under spinal anesthesia. Once adequate anesthetized he was carefully placed onto the hip positioner the nonoperative lower extremity and bilateral upper extremities were carefully padded and the peroneal nerve was padded and on the nonoperative extremity. The operative extremity was placed in a traction along with adduction and internal rotation. A surgical team debriefing was performed ensuring all instrumentation was available, the surgical procedure was discussed with possible concerns reviewed. A timeout was done identifying correct patient, procedure and extremity everyone in attendance agree with this and verbalized no concerns. Reduction maneuver with the use of the hip traction table were done and C-arm fluoroscopy was used to confirm optimal reduction of the intertrochanteric fracture. Once this was confirmed the lower extremity was prepped with chlor prep and draped in a sterile fashion. At this point a small skin incision was made proximal to the greater trochanter. The guidewire was placed onto the tip of the trochanter advanced down to the level of the lesser trochanter. AP and lateral fluoroscopy was used to confirm appropriate placement of the guidewire. The skin incision was then extended and the underlying fascia opened up carefully to the tip of the greater trochanter. The entry reamer was then used and advanced to the level of the lesser trochanter. We proceeded then to place a guidewire all way down to the knee. C arm images were taken confirming that pin location within the bone. Proceeded to measure and it was between a 420-400 and we proceeded to go with a 400 mm long gamma nail. We proceeded to ream starting with a 9 mm reamer and sequentially increased it to a 12 mm reamer. I had significant chatter. At this point Mobile gamma nail was opened up and placed onto the aiming arm and advanced down the shaft of the femur. AP and lateral fluoroscopy was then used to confirm appropriate placement of the nail. Then turned my attention to the compression screw fixation in the femoral head. The trochars were advanced to the skin, a skin incision was made, careful dissection down to the fascia to the lateral femoral cortex was then partaken. The guidewire was then used and placed in the center center position with the tip apex distance less than 25 mm. Once this position was obtained the size of the compression screw was measured. AP and lateral fluoroscopy used to confirm appropriate placement of our guide wire. The step reamer was used to drill up through the femoral neck and head. I then carefully advanced the compression screw into position. AP and lateral fluoroscopy was done to confirm appropriate placement of the compression screw this was then locked into position proximally. The compression screw was then disengaged from its mounting device and the guidewire was removed. Lastly proceeded with locking of the nail distally. The leg was then abducted and the C-arm was then placed in a lateral position to get perfect circles distally. Once I was happy with the image and the marked the skin with a hemostat, a skin incision was made. Careful dissection done with a hemostat to the lateral cortex of the femur. I then drilled the near and far cortices. Measured the appropriate sized distal locking screw and secured it into position. At this point AP/lateral and oblique views of the proximal and distal aspect of the nail were taken confirming appropriate placement of the compression screw, distal locking screw and intramedullary nail. Once this was confirmed I proceeded with copious irrigation of the proximal and distal wounds. The deep tissues were closed with 0 Vicryl suture, subcutaneous tissues were closed with 2-0 Vicryl l suture. The skin was closed with yenni. A dressing was placed. Sponge counts, instrument counts and needle counts were correct. Patient was then transferred from the operating room table to the operating room stretcher. The was no intraoperative complications patient tolerated procedure well was stable to PACU. Implants used: Kianna 11 x 400 mm 125 Short Gamma Nail with a 110 mm compression screw [id number] locking screw Postoperative plan: Patient will begin physical therapy on postop day #1 with Xarelto daily.
[2017-07-27] MEDS ORDERED: MORPHINE SULFATE 10 MG/ML INJ IV PRN (20:45)
[2017-07-28] MEDS ORDERED: HEPARIN SOD (PORCINE) 1,000 UNIT/ML 10 ML VIAL IV PRN (05:00)
[2017-07-28] MEDS ORDERED: NORMAL SALINE 1000 ML 1,000 ML IV PRN (05:00)
[2017-07-28] MEDS: HEPARIN SOD (PORCINE) 5,000 UNIT/ML 1 ML SYRINGE SUBCUT SCH ×3 (06:34→21:30)
[2017-07-28] MEDS: LANSOPRAZOLE 30 MG TAB.RAP.DR PO SCH (06:34)
[2017-07-28 07:16] LABS: ABSOLUTE BASOPHILS # (AUTO) 0.1 10^3/uL (0.0-0.2); ABSOLUTE EOSINOPHILS # (AUTO) 0.2 10^3/uL (0.0-0.6); ABSOLUTE LYMPHOCYTES (AUTO) 0.8 10^3/uL (0.5-4.7); ABSOLUTE MONOCYTES (AUTO) 0.8 10^3/uL (0.1-1.4); ABSOLUTE NEUT (AUTO) 8.5 10^3/uL (1.7-8.2); BASOPHILS % (AUTO) 0.7 % (0-2); EOSINOPHILS % (AUTO) 2.3 % (0-6); HEMATOCRIT 31.8 % (37.9-51.0); HEMOGLOBIN 10.8 g/dL (13.5-17.0); LYMPHOCYTES % (AUTO) 7.9 % (13-45); MEAN CORPUSCULAR HEMOGLOBIN 29.4 pg (27.0-33.4); MEAN CORPUSCULAR HGB CONC 34.1 g/dL (32.0-36.0); MEAN CORPUSCULAR VOLUME 86 fl (80-97); MONOCYTES % (AUTO) 7.6 % (3-13); PLATELET COUNT 108 10^3/uL (150-450); RED BLOOD COUNT 3.69 10^6/uL (4.35-5.55); SEGMENTED NEUTROPHILS % (AUTO) 81.5 % (42-78); TOTAL CELLS COUNTED % (AUTO) 100 %; WHITE BLOOD COUNT 10.5 10^3/uL (4.0-10.5)
[2017-07-28 07:25] LABS: ANION GAP 10 (5-19); BLOOD UREA NITROGEN 53 mg/dL (7-20); CALCIUM 9.1 mg/dL (8.4-10.2); CARBON DIOXIDE 32 mmol/L (22-30); CHLORIDE 102 mmol/L (98-107); GLUCOSE 94 mg/dL (75-110); POTASSIUM 4.9 mmol/L (3.6-5.0); SODIUM 143.7 mmol/L (137-145)
--- NOTE | 2017-07-28 07:31 | PDOC PROGRESS REPORT ---
Subjective Progress Note for:: 07/28/17 Subjective:: No issues overnight. Patient complaining of hip pain. Reason For Visit: HIP FX Physical Exam Vital Signs: Temp Pulse Resp BP Pulse Ox 37.0 C 88 14 157/76 H 98 07/28/17 02:25 07/28/17 02:25 07/28/17 02:25 07/28/17 02:25 07/28/17 02:25 Intake & Output 07/27/17 07/28/17 07/29/17 06:59 06:59 06:59 Intake Total 973 200 Output Total 1000 150 Balance -27 50 Weight 55.7 kg 53.7 kg General appearance: PRESENT: no acute distress Adult Front & Back Image: 1 - Dressings are dry clean and intact. No ecchymosis. Gross sensation to light touch. 5 out of 5 strength distally. Results Laboratory Results: 07/28/17 05:39 07/28/17 05:39 07/28/17 07/28/17 05:39 05:39 WBC 10.5 RBC 3.69 L Hgb 10.8 L Hct 31.8 L MCV 86 MCH 29.4 MCHC 34.1 RDW 16.0 H Plt Count 108 L Seg Neutrophils % 81.5 H Lymphocytes % 7.9 L Monocytes % 7.6 Eosinophils % 2.3 Basophils % 0.7 Absolute Neutrophils 8.5 H Absolute Lymphocytes 0.8 Absolute Monocytes 0.8 Absolute Eosinophils 0.2 Absolute Basophils 0.1 Sodium 143.7 Potassium 4.9 Chloride 102 Carbon Dioxide 32 H Anion Gap 10 BUN 53 H Creatinine 5.66 H Est GFR ( Amer) 12 L Est GFR (Non-Af Amer) 10 L Glucose 94 Calcium 9.1 Impressions: Chest X-Ray 07/25/17 22:26 IMPRESSION: NO ACUTE RADIOGRAPHIC FINDING IN THE CHEST. Head CT 07/25/17 22:27 IMPRESSION: CHRONIC CHANGES OF ATROPHY AND MICROVASCULAR ISCHEMIA. NO ACUTE PROCESS. EVIDENCE OF ACUTE STROKE: NO. Pelvis X-Ray 07/25/17 22:27 IMPRESSION: Comminuted Left femoral neck fracture. Assessment & Plan - Diagnosis (1) Intertrochanteric fracture of left hip Qualifiers: Encounter type: initial encounter Fracture type: closed Fracture alignment: displaced Qualified Code(s): S72.142A - Displaced intertrochanteric fracture of left femur, initial encounter for closed fracture Is this a current diagnosis for this admission?: Yes - Plan Summary Plan Summary: Patient is 72-year-old gentleman POD #1 from left hip nailing. Continue physical therapy Continue pain control Continue DVT prophylaxis Awaiting [facility] facility placement
--- NOTE | 2017-07-28 09:08 | RADIOLOGY REPORT (SQ) ---
EXAM DESCRIPTION: NO CHG FLUORO; FEMUR LEFT COMPLETED DATE/TIME: 07/27/2017 8:22 pm REASON FOR STUDY: LT HIP IM NAILING COMPARISON: 07/25/2017 FLUOROSCOPY TIME: 1.9 minutes 4 images saved to PACS. TECHNIQUE: Intra-operative images acquired during surgical procedure to evaluate progress. NUMBER OF IMAGES: 4 LIMITATIONS: None. FINDINGS: Four images were obtained during fluoroscopy for ORIF of left hip fracture. There has bee n placement of an intramedullary lana in the femur which is transfixed distally with 1 screw. Cross l inking threaded lana has been placed into the femoral head and neck. Fracture fragments are in near a natomic alignment. IMPRESSION: IMAGE(S) OBTAINED DURING PROCEDURE. COMMENT: Quality ID [id number]: Final reports for procedures using fluoroscopy that document radiation exp osure indices, or exposure time and number of fluorographic images (if radiation exposure indices are not available) Please consult full operative report of the attending physician for description of the procedure. TECHNICAL DOCUMENTATION: JOB ID: [id number] [employer]- All Rights Reserved
--- NOTE | 2017-07-28 11:38 | PDOC PROGRESS REPORT ---
Subjective Progress Note for:: 07/27/17 Subjective:: Patient was seen in the morning prior to going for surgery. He was noted to be stable without any complaints of chest pain and shortness of breath. He was noted to be in sinus rhythm. Patient was therefore cleared for surgery. Reason For Visit: HIP FX Physical Exam Vital Signs: Temp Pulse Resp BP Pulse Ox 97.6 F 100 14 159/80 H 95 07/27/17 20:12 07/27/17 20:42 07/27/17 20:42 07/27/17 20:42 07/27/17 20:42 Intake & Output 07/26/17 07/27/17 07/28/17 06:59 06:59 06:59 Intake Total 0 973 200 Output Total 0 1000 150 Balance 0 -27 50 Weight 71 kg 55.7 kg Exam: GENERAL: well-nourished and in no acute distress. Alert and oriented x3 HEAD: Atraumatic, normocephalic. EYES: Pupils equal round and reactive to light, extraocular movements intact, sclera anicteric, conjunctiva are normal. ENT: TMs normal, nares patent, oropharynx clear without exudates. Moist mucous membranes. No oral ulcerations or bleeding gums noted NECK: supple without lymphadenopathy. Trachea is central. No cervical or axillary lymphadenopathy noted. Carotids are 2+, JVD WNL LUNGS: Respiration seems nonlabored, no significant accessory muscle action noted. Breath sounds clear to auscultation bilaterally and equal noted. No wheezes rales or rhonchi noted. No significant dullness noted on percussion. CHEST: Palpation of the chest wall shows no significant chest wall tenderness. No other significant abnormalities noted. HEART: [place] [employer], No PSH, 2/6 YOUSUF aortic area, 1/6 bermudez systolic murmur mitral area, no rubs, no gallops. ABDOMEN: Soft, no significant tenderness appreciated, normoactive bowel sounds. No guarding, no rebound. No rigidity noted . No masses appreciated. EXTREMITIES: Pedal pulses are 1-2+, no calf tenderness noted. No clubbing or cyanosis. Negative pedal edema noted NEUROLOGICAL: Focused neurological exam showed no significant neurologic deficit. Normal speech, no focal weakness appreciated. PSYCH: Normal mood, normal affect. Judgment and insight within normal limits. SKIN: No significant ecchymosis, rash, ulcerations or signs of pruritus noted. MUSCULOSKELETAL EXAM: No significant joint swelling noted. Findings indicative of left hip fracture. Results Laboratory Results: 07/27/17 04:33 07/27/17 04:33 07/27/17 07/27/17 04:33 04:33 WBC 8.0 RBC 3.55 L Hgb 10.4 L D Hct 30.7 L MCV 87 MCH 29.2 MCHC 33.8 RDW 16.0 H Plt Count 112 L Seg Neutrophils % 66.6 Lymphocytes % 18.6 Monocytes % 8.9 Eosinophils % 5.1 Basophils % 0.8 Absolute Neutrophils 5.3 Absolute Lymphocytes 1.5 Absolute Monocytes 0.7 Absolute Eosinophils 0.4 Absolute Basophils 0.1 Sodium 140.6 Potassium 4.5 Chloride 100 Carbon Dioxide 29 Anion Gap 12 BUN 38 H Creatinine 4.28 H Est GFR ( Amer) 17 L Est GFR (Non-Af Amer) 14 L Glucose 100 Calcium 8.6 EKG Comments: Telemetry strips shows sinus rhythm without any sustained tachycardia or bradycardia arrhythmias. Impressions: Chest X-Ray 07/25/17 22:26 IMPRESSION: NO ACUTE RADIOGRAPHIC FINDING IN THE CHEST. Head CT 07/25/17 22:27 IMPRESSION: CHRONIC CHANGES OF ATROPHY AND MICROVASCULAR ISCHEMIA. NO ACUTE PROCESS. EVIDENCE OF ACUTE STROKE: NO. Pelvis X-Ray 07/25/17 22:27 IMPRESSION: Comminuted Left femoral neck fracture. Assessment & Plan - Diagnosis (1) Abnormal EKG Is this a current diagnosis for this admission?: Yes (2) Heart murmur Is this a current diagnosis for this admission?: Yes (3) Hip fracture Qualifiers: Encounter type: initial encounter Fracture type: closed Laterality: left Qualified Code(s): S72.002A - Fracture of unspecified part of neck of left femur, initial encounter for closed fracture Is this a current diagnosis for this admission?: Yes (4) Hypertension Qualifiers: Hypertension type: essential hypertension Qualified Code(s): I10 - Essential (primary) hypertension Is this a current diagnosis for this admission?: Yes (5) COPD (chronic obstructive pulmonary disease) Qualifiers: Emphysema type: unspecified Is this a current diagnosis for this admission?: Yes (7) Dyslipidemia Is this a current diagnosis for this admission?: Yes - Notes Notes: Preop cardiovascular examination: Patient in sinus rhythm. Patient previously cleared for surgery. Today he remains stable. Abnormal EKG: Most likely related to LVH. 2D echo results reviewed with the patient. Heart murmur: Most likely flow murmur based on 2D echo review. Hypertension: Recommend liberal control. COPD: Currently stable. Anemia: Consider correcting anemia prior to surgery. Patient did receive blood transfusion on dialysis, yesterday. Dyslipidemia: Continue per pitavastatin therapy - Time Time with patient: 15-25 minutes - CODE STATUS was discussed, patient remains full code. Surrogate decision-maker unchanged. Multiple medical problems were addressed. More than 50% of the time spent coordinating care, discussing management plans with involved caregivers. Management plans discussed with involved personnels. Medical decision making was of moderate to high complexity , patient's has multiple comorbidities. Medications reviewed and adjusted accordingly: Yes
--- NOTE | 2017-07-28 11:40 | PDOC PROGRESS REPORT ---
Subjective Progress Note for:: 07/28/17 Subjective:: Patient is status post surgery and did well. Currently he was seen on dialysis. He seems to be tolerating this well. He was noted to be stable without any complaints of chest pain and shortness of breath. Patient speaks very little. Reason For Visit: HIP FX Physical Exam Vital Signs: Temp Pulse Resp BP Pulse Ox 98.4 F 90 14 163/79 H 96 07/28/17 07:42 07/28/17 11:21 07/28/17 11:21 07/28/17 07:42 07/28/17 11:21 Intake & Output 07/27/17 07/28/17 07/29/17 06:59 06:59 06:59 Intake Total 973 200 Output Total 1000 150 Balance -27 50 Weight 55.7 kg 53.7 kg Exam: GENERAL: well-nourished and in no acute distress. Alert and oriented x3 HEAD: Atraumatic, normocephalic. EYES: Pupils equal round and reactive to light, extraocular movements intact, sclera anicteric, conjunctiva are normal. ENT: TMs normal, nares patent, oropharynx clear without exudates. Moist mucous membranes. No oral ulcerations or bleeding gums noted NECK: supple without lymphadenopathy. Trachea is central. No cervical or axillary lymphadenopathy noted. Carotids are 2+, JVD WNL LUNGS: Respiration seems nonlabored, no significant accessory muscle action noted. Breath sounds clear to auscultation bilaterally and equal noted. No wheezes rales or rhonchi noted. No significant dullness noted on percussion. CHEST: Palpation of the chest wall shows no significant chest wall tenderness. No other significant abnormalities noted. HEART: [place] [employer], No PSH, 1/6 YOUSUF aortic area, 1/6 bermudez systolic murmur mitral area, no rubs, no gallops. ABDOMEN: Soft, no significant tenderness appreciated, normoactive bowel sounds. No guarding, no rebound. No rigidity noted . No masses appreciated. EXTREMITIES: Pedal pulses are 1-2+, no calf tenderness noted. No clubbing or cyanosis.trace to 1+ pedal edema noted NEUROLOGICAL: Focused neurological exam showed no significant neurologic deficit. Normal speech, no focal weakness appreciated. PSYCH: Normal mood, normal affect. Judgment and insight within normal limits. SKIN: No significant ecchymosis, rash, ulcerations or signs of pruritus noted. MUSCULOSKELETAL EXAM: No significant joint swelling noted. Postop changes noted left hip. Results Laboratory Results: 07/28/17 05:39 07/28/17 05:39 07/28/17 07/28/17 05:39 05:39 WBC 10.5 RBC 3.69 L Hgb 10.8 L Hct 31.8 L MCV 86 MCH 29.4 MCHC 34.1 RDW 16.0 H Plt Count 108 L Seg Neutrophils % 81.5 H Lymphocytes % 7.9 L Monocytes % 7.6 Eosinophils % 2.3 Basophils % 0.7 Absolute Neutrophils 8.5 H Absolute Lymphocytes 0.8 Absolute Monocytes 0.8 Absolute Eosinophils 0.2 Absolute Basophils 0.1 Sodium 143.7 Potassium 4.9 Chloride 102 Carbon Dioxide 32 H Anion Gap 10 BUN 53 H Creatinine 5.66 H Est GFR ( Amer) 12 L Est GFR (Non-Af Amer) 10 L Glucose 94 Calcium 9.1 EKG Comments: Shows sinus rhythm, no sustained tachycardia or bradycardia arrhythmias noted. Impressions: Chest X-Ray 07/25/17 22:26 IMPRESSION: NO ACUTE RADIOGRAPHIC FINDING IN THE CHEST. Head CT 07/25/17 22:27 IMPRESSION: CHRONIC CHANGES OF ATROPHY AND MICROVASCULAR ISCHEMIA. NO ACUTE PROCESS. EVIDENCE OF ACUTE STROKE: NO. Pelvis X-Ray 07/25/17 22:27 IMPRESSION: Comminuted Left femoral neck fracture. Femur X-Ray 07/27/17 00:00 IMPRESSION: IMAGE(S) OBTAINED DURING PROCEDURE. Fluoroscopy 07/27/17 00:00 IMPRESSION: IMAGE(S) OBTAINED DURING PROCEDURE. Assessment & Plan - Diagnosis (1) Abnormal EKG Is this a current diagnosis for this admission?: Yes (2) Heart murmur Is this a current diagnosis for this admission?: Yes (3) Hip fracture Qualifiers: Encounter type: initial encounter Fracture type: closed Laterality: left Qualified Code(s): S72.002A - Fracture of unspecified part of neck of left femur, initial encounter for closed fracture Is this a current diagnosis for this admission?: Yes (4) Hypertension Qualifiers: Hypertension type: essential hypertension Qualified Code(s): I10 - Essential (primary) hypertension Is this a current diagnosis for this admission?: Yes (5) COPD (chronic obstructive pulmonary disease) Qualifiers: Emphysema type: unspecified Is this a current diagnosis for this admission?: Yes (7) Dyslipidemia Is this a current diagnosis for this admission?: Yes - Notes Notes: Patient has remained stable from cardiac standpoint. At this point will sign off. Please reconsult if needed. Abnormal EKG: Most likely related to LVH. Do not feel ischemia workup is indicated. Heart murmur: Most likely flow murmur based on 2D echo review. No significant valvular abnormalities noted on echocardiogram. COPD: Currently stable. Anemia: Anemia corrected. Will leave further evaluation of anemia to flight surgeon and mink slicer.. Dyslipidemia: Continue per pitavastatin therapy - Time Time with patient: 15-25 minutes Medications reviewed and adjusted accordingly: Yes
--- NOTE | 2017-07-28 12:46 | PDOC PROGRESS REPORT ---
Subjective Progress Note for:: 07/28/17 Subjective:: Patient is currently doing fairAnd have a left hip surgery currently on hemodialysis today denied any complaints Reason For Visit: HIP FX Physical Exam Vital Signs: Temp Pulse Resp BP Pulse Ox 98.4 F 90 14 163/79 H 96 07/28/17 07:42 07/28/17 11:21 07/28/17 11:21 07/28/17 07:42 07/28/17 11:21 Intake & Output 07/27/17 07/28/17 07/29/17 06:59 06:59 06:59 Intake Total 973 200 Output Total 1000 150 Balance -27 50 Weight 55.7 kg 53.7 kg General appearance: PRESENT: no acute distress Eye exam: PRESENT: PERRLA Mouth exam: PRESENT: neck supple Respiratory exam: PRESENT: clear to auscultation estuardo Cardiovascular exam: PRESENT: +S1, +S2 GI/Abdominal exam: PRESENT: normal bowel sounds, soft. ABSENT: tenderness Extremities exam: ABSENT: pedal edema Additional comments: Bruising of the left hip is intact Neurological exam: PRESENT: alert, awake, oriented to person Skin exam: PRESENT: dry Results Laboratory Results: 07/28/17 05:39 07/28/17 05:39 07/28/17 07/28/17 05:39 05:39 WBC 10.5 RBC 3.69 L Hgb 10.8 L Hct 31.8 L MCV 86 MCH 29.4 MCHC 34.1 RDW 16.0 H Plt Count 108 L Seg Neutrophils % 81.5 H Lymphocytes % 7.9 L Monocytes % 7.6 Eosinophils % 2.3 Basophils % 0.7 Absolute Neutrophils 8.5 H Absolute Lymphocytes 0.8 Absolute Monocytes 0.8 Absolute Eosinophils 0.2 Absolute Basophils 0.1 Sodium 143.7 Potassium 4.9 Chloride 102 Carbon Dioxide 32 H Anion Gap 10 BUN 53 H Creatinine 5.66 H Est GFR ( Amer) 12 L Est GFR (Non-Af Amer) 10 L Glucose 94 Calcium 9.1 Impressions: Chest X-Ray 07/25/17 22:26 IMPRESSION: NO ACUTE RADIOGRAPHIC FINDING IN THE CHEST. Head CT 07/25/17 22:27 IMPRESSION: CHRONIC CHANGES OF ATROPHY AND MICROVASCULAR ISCHEMIA. NO ACUTE PROCESS. EVIDENCE OF ACUTE STROKE: NO. Pelvis X-Ray 07/25/17 22:27 IMPRESSION: Comminuted Left femoral neck fracture. Femur X-Ray 07/27/17 00:00 IMPRESSION: IMAGE(S) OBTAINED DURING PROCEDURE. Fluoroscopy 07/27/17 00:00 IMPRESSION: IMAGE(S) OBTAINED DURING PROCEDURE. Assessment & Plan - Diagnosis (1) Hip fracture Qualifiers: Encounter type: initial encounter Fracture type: closed Laterality: left Qualified Code(s): S72.002A - Fracture of unspecified part of neck of left femur, initial encounter for closed fracture Is this a current diagnosis for this admission?: Yes Plan: Status post surgery currently doing well (2) End stage renal disease Is this a current diagnosis for this admission?: Yes Plan: Currently on hemodialysis follow with the nephrology (3) Anemia Qualifiers: Anemia type: due to chronic kidney disease Chronic kidney disease stage: on chronic dialysis Qualified Code(s): N18.6 - End stage renal disease; D63.1 - Anemia in chronic kidney disease; D63.1 - Anemia in chronic kidney disease; Z99.2 - Dependence on renal dialysis; Z99.2 - Dependence on renal dialysis; Z99.2 - Dependence on renal dialysis; Z99.2 - Dependence on renal dialysis Is this a current diagnosis for this admission?: Yes Plan: Hemoglobin currently all stable (4) Pulmonary fibrosis Is this a current diagnosis for this admission?: Yes Plan: Chest x-rays all stable continues to DuoNeb nebulizer (5) Peripheral vascular disease Is this a current diagnosis for this admission?: Yes Plan: Status post surgery on the left leg (6) Vertebral compression fracture Qualifiers: Encounter type: subsequent encounter Is this a current diagnosis for this admission?: Yes Plan: Patient's already seen by the pain management and scheduled for vertebroplasty (7) Vascular dementia Qualifiers: Dementia behavioral disturbance: without behavioral disturbance Qualified Code(s): F01.50 - Vascular dementia without behavioral disturbance Is this a current diagnosis for this admission?: Yes Plan: Due to the multiple stroke in the past (8) Cerebrovascular disorder Is this a current diagnosis for this admission?: Yes Plan: Continues to Aggrenox after the procedures (9) Dyslipidemia Is this a current diagnosis for this admission?: Yes Plan: Continues to statin (10) Hypertension Qualifiers: Hypertension type: essential hypertension Qualified Code(s): I10 - Essential (primary) hypertension Is this a current diagnosis for this admission?: Yes Plan: Continues to current medications - Time Time Spent with patient: 15-24 minutes Medications reviewed and adjusted accordingly: Yes Anticipated discharge: SNF Within: Other - Inpatient Certification Medical Necessity: Need Close Monitoring Due to Risk of Patient Decompensation Post Hospital Care: D/C [employer] Documentation - Plan Summary Plan Summary: Continues to physical therapy continues to current medications plan for the rehab
--- NOTE | 2017-07-28 14:43 | PDOC PROGRESS REPORT ---
Subjective Progress Note for:: 07/28/17 Subjective:: I saw the patient during dialysis this morning at around 8:20 AM. He looks much better compared to 2 days ago. He is actually more awake and answering my questions appropriately. He underwent left hip surgery we yesterday. Course was unremarkable. He denies any pain when I asked him this morning. He was tolerating dialysis without any problems this morning. Reason For Visit: ESRD Physical Exam Vital Signs: Temp Pulse Resp BP Pulse Ox 97.8 F 88 17 141/73 H 99 07/28/17 12:15 07/28/17 12:15 07/28/17 12:15 07/28/17 12:15 07/28/17 12:15 Intake & Output 07/27/17 07/28/17 07/29/17 06:59 06:59 06:59 Intake Total 973 200 Output Total 1000 150 Balance -27 50 Weight 55.7 kg 53.7 kg Vital signs during dialysis this morning: Blood pressure 149/86, heart rate of 90, blood flow rate of 345 mL/min, dialysate flow rate of 600 mL/min. Exam: General appearance: PRESENT: no acute distress, cooperative, well-developed, well-nourished Head exam: PRESENT: atraumatic, normocephalic Eye exam: PRESENT: conjunctiva pink, PERRLA. ABSENT: scleral icterus Neck exam: ABSENT: JVD Respiratory exam: PRESENT: Diminished breath sounds. ABSENT: crackles, rales, rhonchi, unlabored, wheezes Cardiovascular exam: PRESENT: Regular rate rhythm -+S1, +S2. ABSENT: diastolic murmur, systolic murmur GI/Abdominal exam: PRESENT: normal bowel sounds, soft. ABSENT: guarding, mass, tenderness Extremities exam: ABSENT: No edema Neurological exam: PRESENT: alert, awake, answers questions. Skin exam: PRESENT: dry, warm, Results Laboratory Results: 07/28/17 05:39 07/28/17 05:39 07/28/17 07/28/17 05:39 05:39 WBC 10.5 RBC 3.69 L Hgb 10.8 L Hct 31.8 L MCV 86 MCH 29.4 MCHC 34.1 RDW 16.0 H Plt Count 108 L Seg Neutrophils % 81.5 H Lymphocytes % 7.9 L Monocytes % 7.6 Eosinophils % 2.3 Basophils % 0.7 Absolute Neutrophils 8.5 H Absolute Lymphocytes 0.8 Absolute Monocytes 0.8 Absolute Eosinophils 0.2 Absolute Basophils 0.1 Sodium 143.7 Potassium 4.9 Chloride 102 Carbon Dioxide 32 H Anion Gap 10 BUN 53 H Creatinine 5.66 H Est GFR ( Amer) 12 L Est GFR (Non-Af Amer) 10 L Glucose 94 Calcium 9.1 Impressions: Chest X-Ray 07/25/17 22:26 IMPRESSION: NO ACUTE RADIOGRAPHIC FINDING IN THE CHEST. Head CT 07/25/17 22:27 IMPRESSION: CHRONIC CHANGES OF ATROPHY AND MICROVASCULAR ISCHEMIA. NO ACUTE PROCESS. EVIDENCE OF ACUTE STROKE: NO. Pelvis X-Ray 07/25/17 22:27 IMPRESSION: Comminuted Left femoral neck fracture. Femur X-Ray 07/27/17 00:00 IMPRESSION: IMAGE(S) OBTAINED DURING PROCEDURE. Fluoroscopy 07/27/17 00:00 IMPRESSION: IMAGE(S) OBTAINED DURING PROCEDURE. Assessment & Plan - Diagnosis (1) End stage renal disease Is this a current diagnosis for this admission?: Yes Plan: We did dialysis today for 3 hours, using the patient's PermCath, with 2 potassium bath, blood flow rate of 350 mL per minute, dialysate flow rate of 600 mL per minute, ultrafiltration 1-2 L as tolerated, no heparin and no Procrit during dialysis. Patient tolerated dialysis this morning without any problems. We will continue to do dialysis support while here in the hospital. (2) Fracture of femoral neck, left Qualifiers: Fracture type: closed Is this a current diagnosis for this admission?: Yes Plan: This is due to a fall. Patient underwent left hip surgical repair yesterday, . (3) Anemia Qualifiers: Anemia type: due to chronic kidney disease Chronic kidney disease stage: on chronic dialysis Qualified Code(s): N18.6 - End stage renal disease; D63.1 - Anemia in chronic kidney disease; D63.1 - Anemia in chronic kidney disease; Z99.2 - Dependence on renal dialysis; Z99.2 - Dependence on renal dialysis; Z99.2 - Dependence on renal dialysis; Z99.2 - Dependence on renal dialysis Is this a current diagnosis for this admission?: Yes Plan: Patient was transfused 2 units of packed RBC today during dialysis on 07/26. Procrit will be given as needed during dialysis. (4) Vascular dementia Qualifiers: Dementia behavioral disturbance: without behavioral disturbance Qualified Code(s): F01.50 - Vascular dementia without behavioral disturbance Is this a current diagnosis for this admission?: Yes Plan: This is been progressive especially the last few months. (5) Hypertension Qualifiers: Hypertension type: essential hypertension Qualified Code(s): I10 - Essential (primary) hypertension Is this a current diagnosis for this admission?: Yes Plan: Currently fairly controlled. - Notes Notes: I will not be here on Monday which is his next dialysis day. Dr. Tafoya will be supervising dialysis on the day. - Time Time with patient: 15-25 minutes
[2017-07-28] MEDS: FUROSEMIDE 20 MG TABLET PO SCH (15:37)
[2017-07-28] MEDS: AMLODIPINE BESYLATE 5 MG TABLET PO SCH (15:37)
[2017-07-28] MEDS ORDERED: CEFAZOLIN 1 GM/D5W RTU 1 GM/50 ML RTUPB IV ONE (18:00)
[2017-07-29] MEDS: HEPARIN SOD (PORCINE) 5,000 UNIT/ML 1 ML SYRINGE SUBCUT SCH ×3 (05:59→22:22)
[2017-07-29] MEDS: LANSOPRAZOLE 30 MG TAB.RAP.DR PO SCH (05:59)
[2017-07-29 06:51] LABS: ABSOLUTE EOSINOPHILS # (AUTO) 0.4 10^3/uL (0.0-0.6); ABSOLUTE LYMPHOCYTES (AUTO) 1.2 10^3/uL (0.5-4.7); ABSOLUTE MONOCYTES (AUTO) 0.5 10^3/uL (0.1-1.4); ABSOLUTE NEUT (AUTO) 4.4 10^3/uL (1.7-8.2); BASOPHILS % (AUTO) 0.7 % (0-2); EOSINOPHILS % (AUTO) 5.9 % (0-6); HEMATOCRIT 23.3 % (37.9-51.0); LYMPHOCYTES % (AUTO) 17.9 % (13-45); MEAN CORPUSCULAR HEMOGLOBIN 29.5 pg (27.0-33.4); MEAN CORPUSCULAR HGB CONC 33.7 g/dL (32.0-36.0); MEAN CORPUSCULAR VOLUME 88 fl (80-97); MONOCYTES % (AUTO) 8.2 % (3-13); RED BLOOD COUNT 2.66 10^6/uL (4.35-5.55); RED CELL DISTRIBUTION WIDTH 15.7 % (11.5-14.0); SEGMENTED NEUTROPHILS % (AUTO) 67.3 % (42-78); TOTAL CELLS COUNTED % (AUTO) 100 %; WHITE BLOOD COUNT 6.5 10^3/uL (4.0-10.5)
[2017-07-29 06:54] LABS: PLATELET COUNT 95 10^3/uL (150-450)
[2017-07-29 07:13] LABS: HEMOGLOBIN 7.8 g/dL (13.5-17.0)
[2017-07-29 07:15] LABS: ANION GAP 8 (5-19); BLOOD UREA NITROGEN 31 mg/dL (7-20); CARBON DIOXIDE 29 mmol/L (22-30); CHLORIDE 96 mmol/L (98-107); GLUCOSE 92 mg/dL (75-110); POTASSIUM 3.8 mmol/L (3.6-5.0); SODIUM 133.3 mmol/L (137-145)
[2017-07-29] MEDS: FUROSEMIDE 20 MG TABLET PO SCH (09:51)
[2017-07-29] MEDS: AMLODIPINE BESYLATE 5 MG TABLET PO SCH (09:52)
--- NOTE | 2017-07-29 10:52 | PDOC PROGRESS REPORT ---
Subjective Progress Note for:: 07/29/17 Reason For Visit: HIP FX 72-year-old white male postop day 2 from intramedullary nailing of a left intratrochanteric femur fracture. Physical Exam Vital Signs: Temp Pulse Resp BP Pulse Ox 36.8 C 86 18 119/69 95 07/29/17 07:29 07/29/17 07:29 07/29/17 07:29 07/29/17 07:29 07/29/17 07:29 Intake & Output 07/28/17 07/29/17 07/30/17 06:59 06:59 06:59 Intake Total 200 1828 Output Total 150 Balance 50 1828 Weight 53.7 kg 55.8 kg General appearance: PRESENT: no acute distress Respiratory exam: PRESENT: unlabored Cardiovascular exam: PRESENT: RRR Pulses: PRESENT: +1 pedal pulses bilateral Vascular exam: PRESENT: normal capillary refill GI/Abdominal exam: PRESENT: soft Rectal exam: PRESENT: deferred Extremities exam: PRESENT: other - Left lower extremity dressings are clean dry and intact Skin exam: PRESENT: dry, intact, warm. ABSENT: cyanosis, rash Results Laboratory Results: 07/29/17 06:00 07/29/17 06:00 07/29/17 07/29/17 06:00 06:00 WBC 6.5 RBC 2.66 L Hgb 7.8 L D Hct 23.3 L MCV 88 MCH 29.5 MCHC 33.7 RDW 15.7 H Plt Count 95 L Seg Neutrophils % 67.3 Lymphocytes % 17.9 Monocytes % 8.2 Eosinophils % 5.9 Basophils % 0.7 Absolute Neutrophils 4.4 Absolute Lymphocytes 1.2 Absolute Monocytes 0.5 Absolute Eosinophils 0.4 Absolute Basophils 0.0 Sodium 133.3 L Potassium 3.8 Chloride 96 L Carbon Dioxide 29 Anion Gap 8 BUN 31 H Creatinine 4.05 H Est GFR ( Amer) 18 L Est GFR (Non-Af Amer) 15 L Glucose 92 Calcium 8.0 L Impressions: Chest X-Ray 07/25/17 22:26 IMPRESSION: NO ACUTE RADIOGRAPHIC FINDING IN THE CHEST. Head CT 07/25/17 22:27 IMPRESSION: CHRONIC CHANGES OF ATROPHY AND MICROVASCULAR ISCHEMIA. NO ACUTE PROCESS. EVIDENCE OF ACUTE STROKE: NO. Pelvis X-Ray 07/25/17 22:27 IMPRESSION: Comminuted Left femoral neck fracture. Femur X-Ray 07/27/17 00:00 IMPRESSION: IMAGE(S) OBTAINED DURING PROCEDURE. Fluoroscopy 07/27/17 00:00 IMPRESSION: IMAGE(S) OBTAINED DURING PROCEDURE. Status: Imported from PACS Assessment & Plan - Diagnosis (1) Fracture of femoral neck, left Qualifiers: Fracture type: closed Is this a current diagnosis for this admission?: Yes Plan: 72-year-old white male postop day 2 from intervention at length for a left intratrochanteric femur fracture with uneventful postoperative course. Mobilization with physical therapy and weightbearing as tolerated basis. Anticipate need for senior care facility placement. - Time Time Spent with patient: 15-24 minutes Anticipated discharge: SNF Within: Other
--- NOTE | 2017-07-29 14:21 | PDOC PROGRESS REPORT ---
Subjective Progress Note for:: 07/29/17 Subjective:: Patient is minimally verbal. Post ORIF for left hip fracture status fall at home. No reported observed chest pain or difficulty with breathing. No fever or chills. At baseline for vascular dementia. Oral intake fairly satisfactory. Reason For Visit: HIP FX Physical Exam Vital Signs: Temp Pulse Resp BP Pulse Ox 98.5 F 84 18 110/66 98 07/29/17 13:40 07/29/17 13:40 07/29/17 13:40 07/29/17 13:40 07/29/17 13:40 Intake & Output 07/28/17 07/29/17 07/30/17 06:59 06:59 06:59 Intake Total 200 1828 0 Output Total 150 Balance 50 1828 0 Weight 53.7 kg 55.8 kg General appearance: PRESENT: no acute distress Head exam: PRESENT: atraumatic, normocephalic Mouth exam: PRESENT: moist Respiratory exam: PRESENT: clear to auscultation estuardo Cardiovascular exam: PRESENT: RRR. ABSENT: diastolic murmur, rubs, systolic murmur GI/Abdominal exam: PRESENT: normal bowel sounds, soft. ABSENT: distended, guarding, mass, organolmegaly, rebound, tenderness Extremities exam: ABSENT: pedal edema Musculoskeletal exam: PRESENT: deformity - left hip s/p ORIF site satisfactory Neurological exam: PRESENT: alert - and cooperative with examination, awake Psychiatric exam: PRESENT: appropriate affect, normal mood. ABSENT: homicidal ideation, suicidal ideation Skin exam: PRESENT: dry, warm, other - site of left hip ORIF surgery satisfactory Results Laboratory Results: 07/29/17 06:00 07/29/17 06:00 07/29/17 07/29/17 07/29/17 06:00 06:00 10:46 WBC 6.5 RBC 2.66 L Hgb 7.8 L D Hct 23.3 L MCV 88 MCH 29.5 MCHC 33.7 RDW 15.7 H Plt Count 95 L Seg Neutrophils % 67.3 Lymphocytes % 17.9 Monocytes % 8.2 Eosinophils % 5.9 Basophils % 0.7 Absolute Neutrophils 4.4 Absolute Lymphocytes 1.2 Absolute Monocytes 0.5 Absolute Eosinophils 0.4 Absolute Basophils 0.0 Sodium 133.3 L Potassium 3.8 Chloride 96 L Carbon Dioxide 29 Anion Gap 8 BUN 31 H Creatinine 4.05 H Est GFR ( Amer) 18 L Est GFR (Non-Af Amer) 15 L Glucose 92 Calcium 8.0 L Blood Type O POSITIVE Antibody Screen NEGATIVE Impressions: Chest X-Ray 07/25/17 22:26 IMPRESSION: NO ACUTE RADIOGRAPHIC FINDING IN THE CHEST. Head CT 07/25/17 22:27 IMPRESSION: CHRONIC CHANGES OF ATROPHY AND MICROVASCULAR ISCHEMIA. NO ACUTE PROCESS. EVIDENCE OF ACUTE STROKE: NO. Pelvis X-Ray 07/25/17 22:27 IMPRESSION: Comminuted Left femoral neck fracture. Femur X-Ray 07/27/17 00:00 IMPRESSION: IMAGE(S) OBTAINED DURING PROCEDURE. Fluoroscopy 07/27/17 00:00 IMPRESSION: IMAGE(S) OBTAINED DURING PROCEDURE. Assessment & Plan - Diagnosis (1) Fall at home Qualifiers: Encounter type: initial encounter Qualified Code(s): W19.XXXA - Unspecified fall, initial encounter; Y92.099 - Unspecified place in other non- institutional residence as the place of occurrence of the external cause; Y92.099 - Unspecified place in other non-institutional residence as the place of occurrence of the external cause Is this a current diagnosis for this admission?: Yes Plan: See covering attending physician orders. (2) Fracture of femoral neck, left Qualifiers: Fracture type: closed Is this a current diagnosis for this admission?: Yes Plan: See covering attending physician orders. Post ORIF. Participation in rehabilitation may be difficulty due to his mental limitation from vascular dementia. (3) End stage renal disease on dialysis Is this a current diagnosis for this admission?: Yes Plan: Continue hemodialysis support under Dr Jane, nephroplogist, directive. See covering attending physician orders. (4) Anemia due to blood loss, acute Is this a current diagnosis for this admission?: Yes Plan: Probably due to acute blood loss related to his recent left hip fracture and surgical intervention. Other contributory factors include ESRD. Patient will receive 2 units of PRBC. (5) Vascular dementia Qualifiers: Dementia behavioral disturbance: without behavioral disturbance Qualified Code(s): F01.50 - Vascular dementia without behavioral disturbance Is this a current diagnosis for this admission?: Yes Plan: See covering attending physician orders. (6) Hypertension Qualifiers: Hypertension type: essential hypertension Qualified Code(s): I10 - Essential (primary) hypertension Is this a current diagnosis for this admission?: Yes Plan: See covering attending physician orders. - Time Time Spent with patient: 25-34 minutes Medications reviewed and adjusted accordingly: Yes Anticipated discharge: SNF - for short term rehabilitation. - Inpatient Certification Based on my medical assessment, after consideration of the patient's comorbidities, presenting symptoms, or acuity I expect that the services needed warrant INPATIENT care.: Yes I certify that my determination is in accordance with my understanding of Medicare's requirements for reasonable and necessary INPATIENT services [42 CFR 412.3e].: Yes Medical Necessity: Need Close Monitoring Due to Risk of Patient Decompensation, Need For IV Fluids, Need For Continuous Telemetry Monitoring, Need for Surgery, Risk of Complication if Not Cared For in Hospital Post Hospital Care: D/C or Transfer Summary - Plan Summary Plan Summary: See covering attending physician orders.
[2017-07-29] MEDS: OXYCODONE HCL IR 5 MG TABLET PO PRN (15:37)
[2017-07-30] MEDS: LANSOPRAZOLE 30 MG TAB.RAP.DR PO SCH (05:36)
[2017-07-30] MEDS: HEPARIN SOD (PORCINE) 5,000 UNIT/ML 1 ML SYRINGE SUBCUT SCH ×3 (05:38→21:40)
--- NOTE | 2017-07-30 07:53 | PDOC PROGRESS REPORT ---
Subjective Progress Note for:: 07/30/17 Reason For Visit: HIP FX 72-year-old white male status post open reduction internal fixation of a left intratrochanteric femur fracture Physical Exam Vital Signs: Temp Pulse Resp BP Pulse Ox 36.8 C 77 17 136/49 H 93 07/30/17 03:56 07/30/17 03:56 07/30/17 03:56 07/30/17 03:56 07/30/17 03:56 Intake & Output 07/29/17 07/30/17 07/31/17 06:59 06:59 06:59 Intake Total 1828 3044 Balance 1828 3044 Weight 55.8 kg 55.8 kg General appearance: PRESENT: no acute distress Head exam: PRESENT: normocephalic Respiratory exam: PRESENT: unlabored Pulses: PRESENT: +1 pedal pulses bilateral Vascular exam: PRESENT: normal capillary refill Musculoskeletal exam: PRESENT: other - Left lower extremity dressings clean dry and intact Results Laboratory Results: 07/29/17 06:00 07/29/17 06:00 07/29/17 10:46 Blood Type O POSITIVE Antibody Screen NEGATIVE Impressions: Chest X-Ray 07/25/17 22:26 IMPRESSION: NO ACUTE RADIOGRAPHIC FINDING IN THE CHEST. Head CT 07/25/17 22:27 IMPRESSION: CHRONIC CHANGES OF ATROPHY AND MICROVASCULAR ISCHEMIA. NO ACUTE PROCESS. EVIDENCE OF ACUTE STROKE: NO. Pelvis X-Ray 07/25/17 22:27 IMPRESSION: Comminuted Left femoral neck fracture. Femur X-Ray 07/27/17 00:00 IMPRESSION: IMAGE(S) OBTAINED DURING PROCEDURE. Fluoroscopy 07/27/17 00:00 IMPRESSION: IMAGE(S) OBTAINED DURING PROCEDURE. Status: Imported from PACS Assessment & Plan - Diagnosis (1) Fracture of femoral neck, left Qualifiers: Fracture type: closed Is this a current diagnosis for this admission?: Yes Plan: Mobilization with physical therapy and nursing home facility placement
[2017-07-30] MEDS: AMLODIPINE BESYLATE 5 MG TABLET PO SCH (10:32)
[2017-07-30] MEDS: OXYCODONE HCL IR 5 MG TABLET PO PRN ×2 (10:33→22:08)
[2017-07-30] MEDS: FUROSEMIDE 20 MG TABLET PO SCH (10:33)
--- NOTE | 2017-07-30 12:50 | PDOC PROGRESS REPORT ---
Subjective Progress Note for:: 07/30/17 Subjective:: Remain minimally verbal. Limited food intake on the pretext on been full. No reported nausea or vomiting. denied abdominal pain. No observed chest pain or difficulty with breathing. No fever or chills. Reason For Visit: HIP FX Physical Exam Vital Signs: Temp Pulse Resp BP Pulse Ox 98.3 F 84 17 134/89 H 95 07/30/17 11:36 07/30/17 11:36 07/30/17 11:36 07/30/17 11:36 07/30/17 11:36 Intake & Output 07/29/17 07/30/17 07/31/17 06:59 06:59 06:59 Intake Total 1828 3044 Balance 1828 3044 Weight 55.8 kg 55.8 kg Physical Exam: General appearance: PRESENT: no acute distress Head exam: PRESENT: atraumatic, normocephalic Mouth exam: PRESENT: moist Respiratory exam: PRESENT: clear to auscultation estuardo Cardiovascular exam: PRESENT: RRR. ABSENT: diastolic murmur, rubs, systolic murmur GI/Abdominal exam: PRESENT: normal bowel sounds, soft. ABSENT: distended, guarding, mass, organomegaly, rebound, tenderness Extremities exam: ABSENT: pedal edema Musculoskeletal exam: PRESENT: deformity - left hip s/p ORIF site satisfactory Neurological exam: PRESENT: alert - and cooperative with examination, awake, limited in verbal communication related to his vascular dementia Psychiatric exam: PRESENT: appropriate affect, normal mood. ABSENT: homicidal ideation, suicidal ideation Skin exam: PRESENT: dry, warm, other - site of left hip ORIF surgery satisfactory Results Laboratory Results: 07/29/17 06:00 07/29/17 06:00 07/29/17 10:46 Blood Type O POSITIVE Antibody Screen NEGATIVE Impressions: Chest X-Ray 07/25/17 22:26 IMPRESSION: NO ACUTE RADIOGRAPHIC FINDING IN THE CHEST. Head CT 07/25/17 22:27 IMPRESSION: CHRONIC CHANGES OF ATROPHY AND MICROVASCULAR ISCHEMIA. NO ACUTE PROCESS. EVIDENCE OF ACUTE STROKE: NO. Pelvis X-Ray 07/25/17 22:27 IMPRESSION: Comminuted Left femoral neck fracture. Femur X-Ray 07/27/17 00:00 IMPRESSION: IMAGE(S) OBTAINED DURING PROCEDURE. Fluoroscopy 07/27/17 00:00 IMPRESSION: IMAGE(S) OBTAINED DURING PROCEDURE. Assessment & Plan - Diagnosis (1) Fall at home Qualifiers: Encounter type: initial encounter Qualified Code(s): W19.XXXA - Unspecified fall, initial encounter; Y92.099 - Unspecified place in other non- institutional residence as the place of occurrence of the external cause; Y92.099 - Unspecified place in other non-institutional residence as the place of occurrence of the external cause Is this a current diagnosis for this admission?: Yes (2) Fracture of femoral neck, left Qualifiers: Fracture type: closed Is this a current diagnosis for this admission?: Yes (3) End stage renal disease on dialysis Is this a current diagnosis for this admission?: Yes (4) Anemia due to blood loss, acute Is this a current diagnosis for this admission?: Yes (5) Vascular dementia Qualifiers: Dementia behavioral disturbance: without behavioral disturbance Qualified Code(s): F01.50 - Vascular dementia without behavioral disturbance Is this a current diagnosis for this admission?: Yes (6) Hypertension Qualifiers: Hypertension type: essential hypertension Qualified Code(s): I10 - Essential (primary) hypertension Is this a current diagnosis for this admission?: Yes - Time Time Spent with patient: 25-34 minutes Medications reviewed and adjusted accordingly: Yes Anticipated discharge: SNF - for short term rehabilitation - Inpatient Certification Based on my medical assessment, after consideration of the patient's comorbidities, presenting symptoms, or acuity I expect that the services needed warrant INPATIENT care.: Yes I certify that my determination is in accordance with my understanding of Medicare's requirements for reasonable and necessary INPATIENT services [42 CFR 412.3e].: Yes Medical Necessity: Need Close Monitoring Due to Risk of Patient Decompensation, Risk of Complication if Not Cared For in Hospital Post Hospital Care: D/C or Transfer Summary - Plan Summary Plan Summary: See covering attending physician orders.
[2017-07-31] MEDS ORDERED: EPOETIN ALFA INJ 20000 UNIT/1 ML VIAL (RENAL) IV PRN (00:58)
[2017-07-31] MEDS ORDERED: HEPARIN SOD (PORCINE) 1,000 UNIT/ML 10 ML VIAL IV PRN (00:58)
[2017-07-31] MEDS ORDERED: NORMAL SALINE 1000 ML 1,000 ML IV PRN (00:58)
[2017-07-31] MEDS: HEPARIN SOD (PORCINE) 5,000 UNIT/ML 1 ML SYRINGE SUBCUT SCH ×3 (05:44→22:44)
[2017-07-31] MEDS: LANSOPRAZOLE 30 MG TAB.RAP.DR PO SCH (05:44)
[2017-07-31 05:58] LABS: ABSOLUTE EOSINOPHILS # (AUTO) 0.4 10^3/uL (0.0-0.6); ABSOLUTE LYMPHOCYTES (AUTO) 0.9 10^3/uL (0.5-4.7); ABSOLUTE MONOCYTES (AUTO) 0.6 10^3/uL (0.1-1.4); ABSOLUTE NEUT (AUTO) 5.2 10^3/uL (1.7-8.2); BASOPHILS % (AUTO) 0.5 % (0-2); EOSINOPHILS % (AUTO) 5.2 % (0-6); HEMATOCRIT 31.2 % (37.9-51.0); LYMPHOCYTES % (AUTO) 12.6 % (13-45); MEAN CORPUSCULAR HEMOGLOBIN 29.8 pg (27.0-33.4); MEAN CORPUSCULAR HGB CONC 34.3 g/dL (32.0-36.0); MEAN CORPUSCULAR VOLUME 87 fl (80-97); MONOCYTES % (AUTO) 8.6 % (3-13); PLATELET COUNT 124 10^3/uL (150-450); RED BLOOD COUNT 3.59 10^6/uL (4.35-5.55); RED CELL DISTRIBUTION WIDTH 14.9 % (11.5-14.0); SEGMENTED NEUTROPHILS % (AUTO) 73.1 % (42-78); TOTAL CELLS COUNTED % (AUTO) 100 %; WHITE BLOOD COUNT 7.1 10^3/uL (4.0-10.5)
[2017-07-31 06:06] LABS: HEMOGLOBIN 10.7 g/dL (13.5-17.0)
[2017-07-31 06:23] LABS: ALANINE AMINOTRANSFERASE 26 U/L (21-72); ALBUMIN 2.6 g/dL (3.5-5.0); ALKALINE PHOSPHATASE 91 U/L (38-126); ANION GAP 11 (5-19); ASPARTATE AMINO TRANSFERASE 40 U/L (17-59); BILIRUBIN,DIRECT 0.3 mg/dL (0.0-0.4); BILIRUBIN,TOTAL 0.5 mg/dL (0.2-1.3); BLOOD UREA NITROGEN 55 mg/dL (7-20); CALCIUM 8.2 mg/dL (8.4-10.2); CARBON DIOXIDE 27 mmol/L (22-30); CHLORIDE 95 mmol/L (98-107); GLUCOSE 99 mg/dL (75-110); POTASSIUM 3.6 mmol/L (3.6-5.0); SODIUM 132.7 mmol/L (137-145); TOTAL PROTEIN 4.8 g/dL (6.3-8.2)
[2017-07-31] MEDS: AMLODIPINE BESYLATE 5 MG TABLET PO SCH (10:21)
[2017-07-31] MEDS: FUROSEMIDE 20 MG TABLET PO SCH (10:21)
--- NOTE | 2017-07-31 11:11 | PDOC PROGRESS REPORT ---
Subjective Progress Note for:: 07/31/17 Reason For Visit: Patient seen on hemodialysis today. I am covering for Dr. Jane. Patient is ESRD with hypertension was admitted for a left hip fracture and has underwent ORIF. He has got vascular dementia and is very minimally communicative. He apparently is in no acute distress on dialysis. Nods his head to leading questions. Physical Exam Vital Signs: Temp Pulse Resp BP Pulse Ox 98.1 F 78 17 175/89 H 96 07/31/17 07:59 07/31/17 07:59 07/31/17 07:59 07/31/17 07:59 07/31/17 07:59 Intake & Output 07/30/17 07/31/17 08/01/17 06:59 06:59 06:59 Intake Total 3044 866 Balance 3044 866 Weight 55.8 kg 72.6 kg General appearance: PRESENT: no acute distress Respiratory exam: PRESENT: chest wall tenderness, clear to auscultation estuardo, symmetrical Cardiovascular exam: PRESENT: +S1, +S2 GI/Abdominal exam: PRESENT: normal bowel sounds, soft. ABSENT: organomegaly, tenderness Extremities exam: ABSENT: pedal edema Neurological exam: PRESENT: alert, awake Skin exam: ABSENT: erythema, mottled Results Laboratory Results: 07/31/17 04:58 07/31/17 04:58 07/31/17 07/31/17 04:58 04:58 WBC 7.1 RBC 3.59 L Hgb 10.7 L D Hct 31.2 L MCV 87 MCH 29.8 MCHC 34.3 RDW 14.9 H Plt Count 124 L Seg Neutrophils % 73.1 Lymphocytes % 12.6 L Monocytes % 8.6 Eosinophils % 5.2 Basophils % 0.5 Absolute Neutrophils 5.2 Absolute Lymphocytes 0.9 Absolute Monocytes 0.6 Absolute Eosinophils 0.4 Absolute Basophils 0.0 Sodium 132.7 L Potassium 3.6 Chloride 95 L Carbon Dioxide 27 Anion Gap 11 BUN 55 H Creatinine 5.77 H Est GFR ( Amer) 12 L Est GFR (Non-Af Amer) 10 L Glucose 99 Calcium 8.2 L Total Bilirubin 0.5 AST 40 ALT 26 Alkaline Phosphatase 91 Total Protein 4.8 L Albumin 2.6 L Impressions: Chest X-Ray 07/25/17 22:26 IMPRESSION: NO ACUTE RADIOGRAPHIC FINDING IN THE CHEST. Head CT 07/25/17 22:27 IMPRESSION: CHRONIC CHANGES OF ATROPHY AND MICROVASCULAR ISCHEMIA. NO ACUTE PROCESS. EVIDENCE OF ACUTE STROKE: NO. Pelvis X-Ray 07/25/17 22:27 IMPRESSION: Comminuted Left femoral neck fracture. Femur X-Ray 07/27/17 00:00 IMPRESSION: IMAGE(S) OBTAINED DURING PROCEDURE. Fluoroscopy 07/27/17 00:00 IMPRESSION: IMAGE(S) OBTAINED DURING PROCEDURE. Assessment & Plan - Diagnosis (1) Anemia Qualifiers: Anemia type: due to chronic kidney disease Chronic kidney disease stage: on chronic dialysis Qualified Code(s): N18.6 - End stage renal disease; D63.1 - Anemia in chronic kidney disease; D63.1 - Anemia in chronic kidney disease; Z99.2 - Dependence on renal dialysis; Z99.2 - Dependence on renal dialysis; Z99.2 - Dependence on renal dialysis; Z99.2 - Dependence on renal dialysis Is this a current diagnosis for this admission?: Yes Plan: Erythropoietin has been adjusted for his anemia and is getting on dialysis (2) Cerebrovascular disorder Is this a current diagnosis for this admission?: Yes Plan: Underlying CVA with resulting in vascular dementia and apparent aphasia (3) End stage renal disease on dialysis Is this a current diagnosis for this admission?: Yes Plan: Seen on dialysis. He is undergoing dialysis on a 3K bath. Will remove less than 500 cc of fluid as his blood pressure is rather tenuous. Orders were reviewed and discussed with the treating nurse Nicolette. (4) Intertrochanteric fracture of left hip Qualifiers: Encounter type: initial encounter Fracture type: closed Fracture alignment: displaced Qualified Code(s): S72.142A - Displaced intertrochanteric fracture of left femur, initial encounter for closed fracture Is this a current diagnosis for this admission?: Yes Plan: Status post ORIF. Management as per orthopedic surgeons. (5) Vascular dementia Qualifiers: Dementia behavioral disturbance: without behavioral disturbance Qualified Code(s): F01.50 - Vascular dementia without behavioral disturbance Is this a current diagnosis for this admission?: Yes (6) Hypertension Qualifiers: Hypertension type: essential hypertension Qualified Code(s): I10 - Essential (primary) hypertension Is this a current diagnosis for this admission?: Yes Plan: Uncontrolled. See the response to dialysis. Further adjustments to be done on medications later on.
--- NOTE | 2017-07-31 14:33 | PDOC PROGRESS REPORT ---
Subjective Progress Note for:: 07/31/17 Subjective:: No observed chest pain or difficulty with breathing. No reported nausea or vomiting. He denied abdominal pain. No fever or chills. Reason For Visit: HIP FX Physical Exam Vital Signs: Temp Pulse Resp BP Pulse Ox 98.1 F 78 17 175/89 H 96 07/31/17 07:59 07/31/17 07:59 07/31/17 07:59 07/31/17 07:59 07/31/17 07:59 Intake & Output 07/30/17 07/31/17 08/01/17 06:59 06:59 06:59 Intake Total 3044 866 Balance 3044 866 Weight 55.8 kg 72.6 kg Physical Exam: General appearance: PRESENT: no acute distress Head exam: PRESENT: atraumatic, normocephalic Mouth exam: PRESENT: moist Respiratory exam: PRESENT: clear to auscultation estuardo Cardiovascular exam: PRESENT: RRR. ABSENT: diastolic murmur, rubs, systolic murmur GI/Abdominal exam: PRESENT: normal bowel sounds, soft. ABSENT: distended, guarding, mass, organomegaly, rebound, tenderness Extremities exam: ABSENT: pedal edema Musculoskeletal exam: PRESENT: deformity - left hip s/p ORIF site satisfactory Neurological exam: PRESENT: alert - and cooperative with examination, awake, limited in verbal communication related to his vascular dementia Psychiatric exam: PRESENT: appropriate affect, normal mood. ABSENT: homicidal ideation, suicidal ideation Skin exam: PRESENT: dry, warm, other - site of left hip ORIF surgery satisfactory Results Laboratory Results: 07/31/17 04:58 07/31/17 04:58 07/31/17 07/31/17 04:58 04:58 WBC 7.1 RBC 3.59 L Hgb 10.7 L D Hct 31.2 L MCV 87 MCH 29.8 MCHC 34.3 RDW 14.9 H Plt Count 124 L Seg Neutrophils % 73.1 Lymphocytes % 12.6 L Monocytes % 8.6 Eosinophils % 5.2 Basophils % 0.5 Absolute Neutrophils 5.2 Absolute Lymphocytes 0.9 Absolute Monocytes 0.6 Absolute Eosinophils 0.4 Absolute Basophils 0.0 Sodium 132.7 L Potassium 3.6 Chloride 95 L Carbon Dioxide 27 Anion Gap 11 BUN 55 H Creatinine 5.77 H Est GFR ( Amer) 12 L Est GFR (Non-Af Amer) 10 L Glucose 99 Calcium 8.2 L Total Bilirubin 0.5 AST 40 ALT 26 Alkaline Phosphatase 91 Total Protein 4.8 L Albumin 2.6 L Impressions: Chest X-Ray 07/25/17 22:26 IMPRESSION: NO ACUTE RADIOGRAPHIC FINDING IN THE CHEST. Head CT 07/25/17 22:27 IMPRESSION: CHRONIC CHANGES OF ATROPHY AND MICROVASCULAR ISCHEMIA. NO ACUTE PROCESS. EVIDENCE OF ACUTE STROKE: NO. Pelvis X-Ray 07/25/17 22:27 IMPRESSION: Comminuted Left femoral neck fracture. Femur X-Ray 07/27/17 00:00 IMPRESSION: IMAGE(S) OBTAINED DURING PROCEDURE. Fluoroscopy 07/27/17 00:00 IMPRESSION: IMAGE(S) OBTAINED DURING PROCEDURE. Assessment & Plan - Diagnosis (1) Fall at home Qualifiers: Encounter type: initial encounter Qualified Code(s): W19.XXXA - Unspecified fall, initial encounter; Y92.099 - Unspecified place in other non- institutional residence as the place of occurrence of the external cause; Y92.099 - Unspecified place in other non-institutional residence as the place of occurrence of the external cause Is this a current diagnosis for this admission?: Yes (2) Fracture of femoral neck, left Qualifiers: Fracture type: closed Is this a current diagnosis for this admission?: Yes (3) End stage renal disease on dialysis Is this a current diagnosis for this admission?: Yes (4) Anemia due to blood loss, acute Is this a current diagnosis for this admission?: Yes (5) Vascular dementia Qualifiers: Dementia behavioral disturbance: without behavioral disturbance Qualified Code(s): F01.50 - Vascular dementia without behavioral disturbance Is this a current diagnosis for this admission?: Yes (6) Hypertension Qualifiers: Hypertension type: essential hypertension Qualified Code(s): I10 - Essential (primary) hypertension Is this a current diagnosis for this admission?: Yes - Time Time Spent with patient: 25-34 minutes Medications reviewed and adjusted accordingly: Yes Anticipated discharge: SNF - for short term rehabilitation Within: Other - Inpatient Certification Based on my medical assessment, after consideration of the patient's comorbidities, presenting symptoms, or acuity I expect that the services needed warrant INPATIENT care.: Yes I certify that my determination is in accordance with my understanding of Medicare's requirements for reasonable and necessary INPATIENT services [42 CFR 412.3e].: Yes Medical Necessity: Need Close Monitoring Due to Risk of Patient Decompensation, Need For Continuous Telemetry Monitoring, Risk of Complication if Not Cared For in Hospital Post Hospital Care: D/C Care Team Assistant Documentation - Plan Summary Plan Summary: See covering attending physician orders.
[2017-07-31] MEDS: OXYCODONE HCL IR 5 MG TABLET PO PRN (14:54)
--- NOTE | 2017-07-31 18:05 | PDOC PROGRESS REPORT ---
Subjective Progress Note for:: 07/31/17 Subjective:: Patient laying supine and comfortable in bed. is bedside. States no issues overnight. Reason For Visit: HIP FX Physical Exam Vital Signs: Temp Pulse Resp BP Pulse Ox 36.5 C 89 18 150/82 H 97 07/31/17 15:18 07/31/17 15:18 07/31/17 15:18 07/31/17 15:18 07/31/17 15:18 Intake & Output 07/30/17 07/31/17 08/01/17 06:59 06:59 06:59 Intake Total 3044 866 474 Balance 3044 866 474 Weight 55.8 kg 72.6 kg Adult Front & Back Image: 1 - Extremity incisions are dry clean and intact. Neurovascular intact distally. Results Laboratory Results: 07/31/17 04:58 07/31/17 04:58 07/31/17 07/31/17 04:58 04:58 WBC 7.1 RBC 3.59 L Hgb 10.7 L D Hct 31.2 L MCV 87 MCH 29.8 MCHC 34.3 RDW 14.9 H Plt Count 124 L Seg Neutrophils % 73.1 Lymphocytes % 12.6 L Monocytes % 8.6 Eosinophils % 5.2 Basophils % 0.5 Absolute Neutrophils 5.2 Absolute Lymphocytes 0.9 Absolute Monocytes 0.6 Absolute Eosinophils 0.4 Absolute Basophils 0.0 Sodium 132.7 L Potassium 3.6 Chloride 95 L Carbon Dioxide 27 Anion Gap 11 BUN 55 H Creatinine 5.77 H Est GFR ( Amer) 12 L Est GFR (Non-Af Amer) 10 L Glucose 99 Calcium 8.2 L Total Bilirubin 0.5 AST 40 ALT 26 Alkaline Phosphatase 91 Total Protein 4.8 L Albumin 2.6 L Impressions: Chest X-Ray 07/25/17 22:26 IMPRESSION: NO ACUTE RADIOGRAPHIC FINDING IN THE CHEST. Head CT 07/25/17 22:27 IMPRESSION: CHRONIC CHANGES OF ATROPHY AND MICROVASCULAR ISCHEMIA. NO ACUTE PROCESS. EVIDENCE OF ACUTE STROKE: NO. Pelvis X-Ray 07/25/17 22:27 IMPRESSION: Comminuted Left femoral neck fracture. Femur X-Ray 07/27/17 00:00 IMPRESSION: IMAGE(S) OBTAINED DURING PROCEDURE. Fluoroscopy 07/27/17 00:00 IMPRESSION: IMAGE(S) OBTAINED DURING PROCEDURE. Assessment & Plan - Diagnosis (1) Intertrochanteric fracture of left hip Qualifiers: Encounter type: initial encounter Fracture type: closed Fracture alignment: displaced Qualified Code(s): S72.142A - Displaced intertrochanteric fracture of left femur, initial encounter for closed fracture Is this a current diagnosis for this admission?: Yes - Plan Summary Plan Summary: 72-year-old gentleman postop day 4 from cephalo-medullary nailing of left intertrochanteric hip fracture. Progress weightbearing as tolerated. Awaiting placement to alf facility.
[2017-07-31] MEDS ORDERED: LIDOCAINE 5% (700 MG) TRANSDERMAL ADH..PATCH ONE (22:55)
[2017-08-01] MEDS: OXYCODONE HCL IR 5 MG TABLET PO PRN ×2 (05:51→15:03)
[2017-08-01] MEDS: HEPARIN SOD (PORCINE) 5,000 UNIT/ML 1 ML SYRINGE SUBCUT SCH ×3 (05:52→22:47)
[2017-08-01] MEDS: LANSOPRAZOLE 30 MG TAB.RAP.DR PO SCH (05:52)
[2017-08-01] MEDS ORDERED: ACETAMINOPHEN 325 MG TABLET PO PRN (09:00)
[2017-08-01] MEDS: AMLODIPINE BESYLATE 5 MG TABLET PO SCH (09:21)
[2017-08-01] MEDS: FUROSEMIDE 20 MG TABLET PO SCH (09:21)
--- NOTE | 2017-08-01 10:08 | PDOC PROGRESS REPORT ---
Subjective Progress Note for:: 08/01/17 Subjective:: Patient is currently doing well Patient's denied any chest pain denied any shortness of the breath Patient status post left hip surgery currently getting the physical therapy and waiting to go to the intermediate transfer for the rehab Reason For Visit: HIP FX Physical Exam Vital Signs: Temp Pulse Resp BP Pulse Ox 98.2 F 84 18 145/84 H 97 08/01/17 08:01 08/01/17 08:01 08/01/17 08:01 08/01/17 08:01 08/01/17 08:01 Intake & Output 07/31/17 08/01/17 08/02/17 06:59 06:59 06:59 Intake Total 866 1149 Balance 866 1149 Weight 72.6 kg 71.4 kg General appearance: PRESENT: no acute distress, well-developed, well-nourished Head exam: PRESENT: atraumatic, normocephalic Eye exam: PRESENT: conjunctiva pink, EOMI, PERRLA. ABSENT: scleral icterus Ear exam: PRESENT: normal external ear exam Mouth exam: PRESENT: moist, tongue midline Neck exam: PRESENT: full ROM. ABSENT: carotid bruit, JVD, lymphadenopathy, thyromegaly Respiratory exam: PRESENT: clear to auscultation estuardo Cardiovascular exam: PRESENT: RRR. ABSENT: diastolic murmur, rubs, systolic murmur Pulses: PRESENT: normal dorsalis pedis pul, +2 pedal pulses bilateral Vascular exam: PRESENT: normal capillary refill GI/Abdominal exam: PRESENT: normal bowel sounds, soft. ABSENT: distended, guarding, mass, organolmegaly, rebound, tenderness Rectal exam: PRESENT: deferred Extremities exam: ABSENT: pedal edema Neurological exam: PRESENT: alert, awake, oriented to person, oriented to place , oriented to time, oriented to situation, CN II-XII grossly intact. ABSENT: motor sensory deficit Psychiatric exam: PRESENT: appropriate affect, normal mood. ABSENT: homicidal ideation, suicidal ideation Skin exam: PRESENT: dry, intact, warm. ABSENT: cyanosis, rash Results Laboratory Results: 07/31/17 04:58 07/31/17 04:58 Impressions: Chest X-Ray 07/25/17 22:26 IMPRESSION: NO ACUTE RADIOGRAPHIC FINDING IN THE CHEST. Head CT 12/26/17 22:27 IMPRESSION: CHRONIC CHANGES OF ATROPHY AND MICROVASCULAR ISCHEMIA. NO ACUTE PROCESS. EVIDENCE OF ACUTE STROKE: NO. Pelvis X-Ray 07/25/17 22:27 IMPRESSION: Comminuted Left femoral neck fracture. Femur X-Ray 07/27/17 00:00 IMPRESSION: IMAGE(S) OBTAINED DURING PROCEDURE. Fluoroscopy 07/27/17 00:00 IMPRESSION: IMAGE(S) OBTAINED DURING PROCEDURE. Assessment & Plan - Diagnosis (1) Hip fracture Qualifiers: Encounter type: initial encounter Fracture type: closed Laterality: left Qualified Code(s): S72.002A - Fracture of unspecified part of neck of left femur, initial encounter for closed fracture Is this a current diagnosis for this admission?: Yes Plan: Status post surgery (2) End stage renal disease Is this a current diagnosis for this admission?: Yes Plan: Currently on hemodialysis follow with the nephrology (3) Anemia Qualifiers: Anemia type: due to chronic kidney disease Chronic kidney disease stage: on chronic dialysis Qualified Code(s): N18.6 - End stage renal disease; D63.1 - Anemia in chronic kidney disease; D63.1 - Anemia in chronic kidney disease; Z99.2 - Dependence on renal dialysis; Z99.2 - Dependence on renal dialysis; Z99.2 - Dependence on renal dialysis; Z99.2 - Dependence on renal dialysis Is this a current diagnosis for this admission?: Yes Plan: Hemoglobin currently all stable (4) Pulmonary fibrosis Is this a current diagnosis for this admission?: Yes Plan: Chest x-rays all stable continues to DuoNeb nebulizer (5) Peripheral vascular disease Is this a current diagnosis for this admission?: Yes Plan: Status post surgery on the left leg (6) Vertebral compression fracture Qualifiers: Encounter type: subsequent encounter Is this a current diagnosis for this admission?: Yes Plan: Patient's already seen by the pain management and scheduled for vertebroplasty (7) Vascular dementia Qualifiers: Dementia behavioral disturbance: without behavioral disturbance Qualified Code(s): F01.50 - Vascular dementia without behavioral disturbance Is this a current diagnosis for this admission?: Yes Plan: Due to the multiple stroke in the past (8) Cerebrovascular disorder Is this a current diagnosis for this admission?: Yes Plan: Continues to Aggrenox after the procedures (9) Dyslipidemia Is this a current diagnosis for this admission?: Yes Plan: Continues to statin (10) Hypertension Qualifiers: Hypertension type: essential hypertension Qualified Code(s): I10 - Essential (primary) hypertension Is this a current diagnosis for this admission?: Yes Plan: Continues to current medications - Time Time Spent with patient: 15-24 minutes Medications reviewed and adjusted accordingly: Yes Anticipated discharge: SNF Within: within 24 hours - Inpatient Certification Medical Necessity: Need Close Monitoring Due to Risk of Patient Decompensation Post Hospital Care: D/C Produce Department Supervisor Documentation - Plan Summary Plan Summary: The patient remained stable in the next 24 hours patient should transport of the rehab
--- NOTE | 2017-08-01 12:05 | PDOC PROGRESS REPORT ---
Subjective Progress Note for:: 08/01/17 Subjective:: Patient lying in bed comfortable. No issues overnight according to nursing staff. Patient was able to eat breakfast this morning. Reason For Visit: HIP FX Physical Exam Vital Signs: Temp Pulse Resp BP Pulse Ox 98.2 F 84 18 145/84 H 97 08/01/17 08:01 08/01/17 08:01 08/01/17 08:01 08/01/17 08:01 08/01/17 08:01 Intake & Output 07/31/17 08/01/17 08/02/17 06:59 06:59 06:59 Intake Total 866 1149 Balance 866 1149 Weight 72.6 kg 71.4 kg Musculoskeletal exam: PRESENT: other - Left hip: Minimal thigh swelling. Dressing clean/dry/intact no erythema or drainage. No calf tenderness. Results Laboratory Results: 07/31/17 04:58 07/31/17 04:58 Impressions: Chest X-Ray 07/25/17 22:26 IMPRESSION: NO ACUTE RADIOGRAPHIC FINDING IN THE CHEST. Head CT 07/25/17 22:27 IMPRESSION: CHRONIC CHANGES OF ATROPHY AND MICROVASCULAR ISCHEMIA. NO ACUTE PROCESS. EVIDENCE OF ACUTE STROKE: NO. Pelvis X-Ray 07/25/17 22:27 IMPRESSION: Comminuted Left femoral neck fracture. Femur X-Ray 07/27/17 00:00 IMPRESSION: IMAGE(S) OBTAINED DURING PROCEDURE. Fluoroscopy 07/27/17 00:00 IMPRESSION: IMAGE(S) OBTAINED DURING PROCEDURE. Assessment & Plan - Diagnosis (1) Intertrochanteric fracture of left hip Qualifiers: Encounter type: initial encounter Fracture type: closed Fracture alignment: displaced Qualified Code(s): S72.142A - Displaced intertrochanteric fracture of left femur, initial encounter for closed fracture Is this a current diagnosis for this admission?: Yes Plan: Status post left cephalo-medullary nail intertrochanteric fracture #1 physical therapy weightbearing as tolerated #2 DVT prophylaxis heparin #3 discharge planning patient will require care home facility when bed available
[2017-08-02] MEDS ORDERED: NORMAL SALINE 1000 ML 1,000 ML IV PRN (05:00)
[2017-08-02] MEDS: LANSOPRAZOLE 30 MG TAB.RAP.DR PO SCH (06:08)
[2017-08-02] MEDS: HEPARIN SOD (PORCINE) 5,000 UNIT/ML 1 ML SYRINGE SUBCUT SCH (06:09)
[2017-08-02 07:18] LABS: ABSOLUTE BASOPHILS # (AUTO) 0.1 10^3/uL (0.0-0.2); ABSOLUTE EOSINOPHILS # (AUTO) 0.4 10^3/uL (0.0-0.6); ABSOLUTE MONOCYTES (AUTO) 0.5 10^3/uL (0.1-1.4); ABSOLUTE NEUT (AUTO) 5.8 10^3/uL (1.7-8.2); BASOPHILS % (AUTO) 0.7 % (0-2); EOSINOPHILS % (AUTO) 5.6 % (0-6); HEMATOCRIT 33.2 % (37.9-51.0); HEMOGLOBIN 11.1 g/dL (13.5-17.0); LYMPHOCYTES % (AUTO) 12.6 % (13-45); MEAN CORPUSCULAR HEMOGLOBIN 29.2 pg (27.0-33.4); MEAN CORPUSCULAR HGB CONC 33.5 g/dL (32.0-36.0); MEAN CORPUSCULAR VOLUME 87 fl (80-97); MONOCYTES % (AUTO) 6.7 % (3-13); PLATELET COUNT 127 10^3/uL (150-450); RED BLOOD COUNT 3.81 10^6/uL (4.35-5.55); RED CELL DISTRIBUTION WIDTH 15.1 % (11.5-14.0); SEGMENTED NEUTROPHILS % (AUTO) 74.4 % (42-78); TOTAL CELLS COUNTED % (AUTO) 100 %; WHITE BLOOD COUNT 7.8 10^3/uL (4.0-10.5)
[2017-08-02 07:26] VITALS: BP 168/81
[2017-08-02 07:37] LABS: ANION GAP 10 (5-19); BLOOD UREA NITROGEN 57 mg/dL (7-20); CARBON DIOXIDE 29 mmol/L (22-30); CHLORIDE 97 mmol/L (98-107); GLUCOSE 104 mg/dL (75-110); POTASSIUM 4.2 mmol/L (3.6-5.0)
--- NOTE | 2017-08-02 09:07 | PDOC TRANSFER SUMMARY ---
General - Admit/Disc Date/PCP Admission Date/Primary Care Provider: 07/26/17 00:26 TASHIA JUAREZ MD Discharge Date: 08/02/17 - Discharge Diagnosis (1) Hip fracture Is this a current diagnosis for this admission?: Yes Summary: Status post surgery follow with Ortho (2) End stage renal disease Is this a current diagnosis for this admission?: Yes Summary: continue on hemodialysis (3) Anemia Is this a current diagnosis for this admission?: Yes Summary: Currently stable (4) Pulmonary fibrosis Is this a current diagnosis for this admission?: Yes Summary: She is currently see the [place] [facility] once a year (5) Peripheral vascular disease Is this a current diagnosis for this admission?: Yes Summary: Also see a vascular surgeon in [place] (6) Vertebral compression fracture Is this a current diagnosis for this admission?: Yes Summary: [facility] is to follow with the pain management (7) Vascular dementia Is this a current diagnosis for this admission?: Yes Summary: Currently stable (8) Cerebrovascular disorder Is this a current diagnosis for this admission?: Yes Summary: Patient's currently on Eliquis for the DVT prophylaxis we currently hold the AggrenoxOnce the Eliquis is done in 30 days start the patient on Aggrenox (9) Dyslipidemia Is this a current diagnosis for this admission?: Yes Summary: Continues to statin (10) Hypertension Is this a current diagnosis for this admission?: Yes Summary: Currently stable - Additional Information Resuscitation Status: Full Code Discharge Diet: Cardiac Prescriptions: Acetaminophen [Tylenol 325 mg Tablet] 650 mg PO Q4HP PRN #60 tablet PRN Reason: Apixaban [Eliquis 2.5 mg Tablet] 2.5 mg PO BID #60 tablet Home Medications: Amlodipine Besylate [Norvasc 5 mg Tablet] 5 mg PO DAILY 07/26/17 Ergocalciferol (Vitamin D2) [Drisdol 50,000 unit (1.25MG) Capsule] 50,000 unit PO SERRANO@1000 07/26/17 Furosemide [Lasix 20 mg Tablet] 20 mg PO DAILY 07/26/17 Omeprazole 40 mg PO DAILY 07/26/17 Pitavastatin Calcium [Livalo] 4 mg PO DAILY 07/26/17 Acetaminophen [Tylenol 325 mg Tablet] 650 mg PO Q4HP PRN #60 tablet 08/02/17 Apixaban [Eliquis 2.5 mg Tablet] 2.5 mg PO BID #60 tablet 08/02/17 History of Present Illness Admission Date/PCP: 07/26/17 00:26 TASHIA JUAREZ MD History of Present Illness: 80-year-old renal dialysis patient status post fall in the kitchen. Injury occurred on 07/25/2017. Patient had inability to stand and weight-bear. He was brought to the hospital by EMS. Upon arrival he was diagnosed with a displaced left intertrochanteric hip fracture. Patient family who gave the history denies any other extremity injuries. Denies any previous surgery on the left hip. Patient complains pain equal to 5 out of 5 with attempted range of motion or weightbearing. Family denies any numbness or tingling or paresthesias of the left lower extremity. Denies any other extremity injuries. Denies any loss of consciousness. Hospital Course Hospital Course: This is a 72-year-old Male came to the emergency department with the fall and the left hip fracture Patient underwent for the left hip surgery Patient also have anemia and required blood transfusions Patient's also on hemodialysis and currently follow with nephrology Patient's other medical problem was all stable and patient was put on Eliquis as per discussed with the nephrology for the DVT prophylaxis status post hip surgery Discussed with the patient and the family about fall precautions while on Eliquis and discussed all prior and cons of the Eliquis but as per discussed with the nephrology this is the best treatments for the patient's at this point for the DVT prophylaxis We currently hold the Aggrenox while on Eliquis because patient on multiple risk for the bleeding Continues to fall precautions while on the nursing homes Recheck the CBC and Chem-7 in a week Physical Exam Vital Signs: Temp Pulse Resp BP Pulse Ox 98.6 F 89 18 168/81 H 97 08/02/17 03:42 08/02/17 03:42 08/02/17 03:42 08/02/17 03:42 08/02/17 03:42 Intake & Output 08/01/17 08/02/17 08/03/17 06:59 06:59 06:59 Intake Total 1149 883 Output Total 700 Balance 449 883 Weight 71.4 kg 70.7 kg General appearance: PRESENT: no acute distress, well-developed, well-nourished Head exam: PRESENT: atraumatic, normocephalic Eye exam: PRESENT: conjunctiva pink, EOMI, PERRLA. ABSENT: scleral icterus Ear exam: PRESENT: normal external ear exam Mouth exam: PRESENT: moist, tongue midline Neck exam: ABSENT: carotid bruit, JVD, lymphadenopathy, thyromegaly Respiratory exam: PRESENT: clear to auscultation estuardo. ABSENT: rales, rhonchi, wheezes Cardiovascular exam: PRESENT: RRR. ABSENT: diastolic murmur, rubs, systolic murmur Pulses: PRESENT: normal dorsalis pedis pul Vascular exam: PRESENT: normal capillary refill GI/Abdominal exam: PRESENT: normal bowel sounds, soft. ABSENT: distended, guarding, mass, organolmegaly, rebound, tenderness Rectal exam: PRESENT: deferred Extremities exam: PRESENT: full ROM, other - The left hip the dressing is intact. ABSENT: calf tenderness, clubbing, pedal edema Neurological exam: PRESENT: alert, awake, oriented to person, oriented to place , oriented to time, oriented to situation, CN II-XII grossly intact. ABSENT: motor sensory deficit Psychiatric exam: PRESENT: appropriate affect, normal mood. ABSENT: homicidal ideation, suicidal ideation Skin exam: PRESENT: dry, intact, warm. ABSENT: cyanosis, rash Results Laboratory Results: 08/02/17 06:49 08/02/17 06:49 08/02/17 08/02/17 06:49 06:49 WBC 7.8 RBC 3.81 L Hgb 11.1 L Hct 33.2 L MCV 87 MCH 29.2 MCHC 33.5 RDW 15.1 H Plt Count 127 L Seg Neutrophils % 74.4 Lymphocytes % 12.6 L Monocytes % 6.7 Eosinophils % 5.6 Basophils % 0.7 Absolute Neutrophils 5.8 Absolute Lymphocytes 1.0 Absolute Monocytes 0.5 Absolute Eosinophils 0.4 Absolute Basophils 0.1 Sodium 136.0 L Potassium 4.2 Chloride 97 L Carbon Dioxide 29 Anion Gap 10 BUN 57 H Creatinine 5.07 H Est GFR ( Amer) 14 L Est GFR (Non-Af Amer) 11 L Glucose 104 Calcium 9.0 Impressions: Chest X-Ray 07/25/17 22:26 IMPRESSION: NO ACUTE RADIOGRAPHIC FINDING IN THE CHEST. Head CT 07/25/17 22:27 IMPRESSION: CHRONIC CHANGES OF ATROPHY AND MICROVASCULAR ISCHEMIA. NO ACUTE PROCESS. EVIDENCE OF ACUTE STROKE: NO. Pelvis X-Ray 07/25/17 22:27 IMPRESSION: Comminuted Left femoral neck fracture. Femur X-Ray 07/27/17 00:00 IMPRESSION: IMAGE(S) OBTAINED DURING PROCEDURE. Fluoroscopy 07/27/17 00:00 IMPRESSION: IMAGE(S) OBTAINED DURING PROCEDURE. Transfer Plan - Time Spent with Patient Time spent with patient: Greater than 30 Minutes Plan Time Spent: Greater than 30 Minutes - Patients on Eliquis a fall precautions Physical therapy daily Follow with the Ortho in August 07 Once the patient ambulated fully discussed with the Ortho to discontinues the Eliquis and start the Aggrenox Follow for hemodialysis as scheduled
[2017-08-02] MEDS: FUROSEMIDE 20 MG TABLET PO SCH (12:11)
[2017-08-02] MEDS: AMLODIPINE BESYLATE 5 MG TABLET PO SCH (12:11)
--- NOTE | 2017-08-02 19:04 | PDOC PROGRESS REPORT ---
Subjective Progress Note for:: 08/02/17 Subjective:: I saw the patient during dialysis this morning at around 9:40 AM. Patient said hi to me. Other than that he did not really answer any questions. He tolerated dialysis well and has been pretty stable. Reason For Visit: ESRD Physical Exam Vital Signs: Temp Pulse Resp BP Pulse Ox 98.6 F 85 18 168/81 H 97 08/02/17 03:42 08/02/17 07:00 08/02/17 03:42 08/02/17 03:42 08/02/17 03:42 Intake & Output 08/01/17 08/02/17 08/03/17 06:59 06:59 06:59 Intake Total 1149 883 Output Total 700 700 Balance 449 883 -700 Weight 71.4 kg 70.7 kg Vitals during dialysis: Blood pressure 150/77, heart rate 89, blood flow rate of 350 mL/min, dialysate flow rate of 600 mL/min. Exam: General appearance: PRESENT: no acute distress, cooperative, well-developed, well-nourished Head exam: PRESENT: atraumatic, normocephalic Eye exam: PRESENT: conjunctiva pink, PERRLA. ABSENT: scleral icterus Neck exam: ABSENT: JVD Respiratory exam: PRESENT: Normal breath sounds. ABSENT: crackles, rales, rhonchi, unlabored, wheezes Cardiovascular exam: PRESENT: Regular rate rhythm -+S1, +S2. ABSENT: diastolic murmur, systolic murmur GI/Abdominal exam: PRESENT: normal bowel sounds, soft. ABSENT: guarding, mass, tenderness Extremities exam: ABSENT: No edema Neurological exam: PRESENT: alert, awake, answers selective questions Skin exam: PRESENT: dry, warm, Cardiovascular exam: PRESENT: +S1, +S2 GI/Abdominal exam: PRESENT: normal bowel sounds, soft. ABSENT: organomegaly, tenderness Results Laboratory Results: 08/02/17 06:49 08/02/17 06:49 08/02/17 08/02/17 06:49 06:49 WBC 7.8 RBC 3.81 L Hgb 11.1 L Hct 33.2 L MCV 87 MCH 29.2 MCHC 33.5 RDW 15.1 H Plt Count 127 L Seg Neutrophils % 74.4 Lymphocytes % 12.6 L Monocytes % 6.7 Eosinophils % 5.6 Basophils % 0.7 Absolute Neutrophils 5.8 Absolute Lymphocytes 1.0 Absolute Monocytes 0.5 Absolute Eosinophils 0.4 Absolute Basophils 0.1 Sodium 136.0 L Potassium 4.2 Chloride 97 L Carbon Dioxide 29 Anion Gap 10 BUN 57 H Creatinine 5.07 H Est GFR ( Amer) 14 L Est GFR (Non-Af Amer) 11 L Glucose 104 Calcium 9.0 Impressions: Chest X-Ray 07/25/17 22:26 IMPRESSION: NO ACUTE RADIOGRAPHIC FINDING IN THE CHEST. Head CT 07/25/17 22:27 IMPRESSION: CHRONIC CHANGES OF ATROPHY AND MICROVASCULAR ISCHEMIA. NO ACUTE PROCESS. EVIDENCE OF ACUTE STROKE: NO. Pelvis X-Ray 07/25/17 22: IMPRESSION: Comminuted Left femoral neck fracture. Femur X-Ray 07/27/17 00:00 IMPRESSION: IMAGE(S) OBTAINED DURING PROCEDURE. Fluoroscopy 07/27/17 00:00 IMPRESSION: IMAGE(S) OBTAINED DURING PROCEDURE. Assessment & Plan - Diagnosis (1) End stage renal disease Is this a current diagnosis for this admission?: Yes Plan: We will do dialysis today for 3 hours, using the patient's PermCath, with 3 potassium bath, blood flow rate of 350 mL per minute, dialysate flow rate of 600 mL per minute, ultrafiltration 1-2 L as tolerated, no heparin and no Procrit during dialysis. Patient tolerated the procedure. Once discharged patient will continue his hemodialysis at [facility] on Mondays, Wednesdays and Fridays at his regular scheduled time. (2) Fracture of femoral neck, left Qualifiers: Fracture type: closed Is this a current diagnosis for this admission?: Yes Plan: This is due to a fall. Patient underwent left hip surgical repair, 07/27/2017. (3) Anemia Qualifiers: Anemia type: due to chronic kidney disease Chronic kidney disease stage: on chronic dialysis Qualified Code(s): N18.6 - End stage renal disease; D63.1 - Anemia in chronic kidney disease; D63.1 - Anemia in chronic kidney disease; Z99.2 - Dependence on renal dialysis; Z99.2 - Dependence on renal dialysis; Z99.2 - Dependence on renal dialysis; Z99.2 - Dependence on renal dialysis Is this a current diagnosis for this admission?: Yes Plan: Patient was transfused 2 units of packed RBC on 07/26. Procrit will be given as needed during dialysis. (4) Vascular dementia Qualifiers: Dementia behavioral disturbance: without behavioral disturbance Qualified Code(s): F01.50 - Vascular dementia without behavioral disturbance Is this a current diagnosis for this admission?: Yes Plan: This is been progressive especially the last few months. (5) Hypertension Qualifiers: Hypertension type: essential hypertension Qualified Code(s): I10 - Essential (primary) hypertension Is this a current diagnosis for this admission?: Yes Plan: Currently fairly controlled. - Notes Notes: From nephrology standpoint patient can be transferred to rehab if family agreed. - Time Time with patient: 15-25 minutes
== END 2017-08-02 14:36 | DRG 480 ==
LOC: ER 22:11 → EH 07-26 00:26 → 4S 07-26 01:19
PROVIDERS: ADMIT Family Medicine; ATTEND Family Medicine
PROC: 30233N1 Transfusion of Nonautologous Red Blood Cells into Peripheral Vein, Percutaneous Approach (ICD-10-PCS; 2017-07-26)
PROC: 5A1D70Z Performance of Urinary Filtration, Intermittent, Less than 6 Hours Per Day (ICD-10-PCS; 2017-07-26)
PROC: 0QS706Z Reposition Left Upper Femur with Intramedullary Internal Fixation Device, Open Approach (ICD-10-PCS; principal; 2017-07-27 18:00)
PROC: 5A1D70Z Performance of Urinary Filtration, Intermittent, Less than 6 Hours Per Day (ICD-10-PCS; 2017-07-28)
PROC: 30233N1 Transfusion of Nonautologous Red Blood Cells into Peripheral Vein, Percutaneous Approach (ICD-10-PCS; 2017-07-29)
PROC: 5A1D70Z Performance of Urinary Filtration, Intermittent, Less than 6 Hours Per Day (ICD-10-PCS; 2017-07-31)
PROC: 5A1D70Z Performance of Urinary Filtration, Intermittent, Less than 6 Hours Per Day (ICD-10-PCS; 2017-08-02)
PROC: 3E0234Z Introduction of Serum, Toxoid and Vaccine into Muscle, Percutaneous Approach (ICD-10-PCS; 2017-08-02)
DX: S72.142A Displaced intertrochanteric fracture of left femur, initial encounter for closed fracture (principal); N18.6 End stage renal disease; I12.0 Hypertensive chronic kidney disease with stage 5 chronic kidney disease or end stage renal disease; D62 Acute posthemorrhagic anemia; I10 Essential (primary) hypertension; Z88.0 Allergy status to penicillin; J44.9 Chronic obstructive pulmonary disease, unspecified; W19.XXXA Unspecified fall, initial encounter; Y92.003 Bedroom of unspecified non-institutional (private) residence as the place of occurrence of the external cause; D63.1 Anemia in chronic kidney disease; I69.320 Aphasia following cerebral infarction; Z99.2 Dependence on renal dialysis; Z91.15 Patient's noncompliance with renal dialysis; I73.9 Peripheral vascular disease, unspecified; J84.10 Pulmonary fibrosis, unspecified; F01.50 Vascular dementia, unspecified severity, without behavioral disturbance, psychotic disturbance, mood disturbance, and anxiety; E78.5 Hyperlipidemia, unspecified; R01.1 Cardiac murmur, unspecified; M48.50XD Collapsed vertebra, not elsewhere classified, site unspecified, subsequent encounter for fracture with routine healing; I25.2 Old myocardial infarction; H40.9 Unspecified glaucoma; F32.9 Major depressive disorder, single episode, unspecified; K21.9 Gastro-esophageal reflux disease without esophagitis; Z79.02 Long term (current) use of antithrombotics/antiplatelets; Z23 Encounter for immunization
CPT/HCPCS: 01230; 36415; 36430; 70450; 71010; 72170; 80048; 80053; 85025; 85610; 85730; 86850; 86900; 86901; 86920; 90686; 93005; 93010; 93306; 99285; G8978-GP; G8979-GP; G8987-GO; G8988-GO; J0360; J0690; J1644; J2270; J2370; J2405; J2704; J3010; J3490; P9016; Q4081

== ENCOUNTER → 2017-11-23 | Outpatient (CLI) | payer MEDICARE, OTHER ==
--- NOTE | 2017-11-23 16:46 | RADIOLOGY REPORT (SQ) ---
EXAM DESCRIPTION: FOOT LEFT COMPLETE COMPLETED DATE/TIME: 11/23/2017 4:01 pm REASON FOR STUDY: L89.620 PRESSURE ULCER OF LEFT HEEL, UNSTAGEABLE L89.620 PRESSURE ULCER OF LEFT H EEL, UNSTAGEABLE COMPARISON: None. NUMBER OF VIEWS: Three views. TECHNIQUE: AP, lateral and oblique radiographic images acquired of the left foot. LIMITATIONS: None. FINDINGS: MINERALIZATION: Diffuse demineralization. BONES: No acute fracture or dislocation. Plantar calcaneal spur. No worrisome bone lesions. JOINTS: No effusions. SOFT TISSUES: Focal soft tissue defect posterior to the calcaneus. OTHER: No other significant finding. IMPRESSION: FOCAL SOFT TISSUE DEFECT POSTERIOR TO THE CALCANEUS CONSISTENT WITH SOFT TISSUE ULCERATI ON. NO UNDERLYING BONY CHANGES. TECHNICAL DOCUMENTATION: JOB ID: [id number] [employer]- All Rights Reserved Reading location - IP/workstation name: [email or web address]
--- NOTE | 2017-11-24 08:13 | XCELERA REPORT ---
[address] [address] Lower Extremity Arterial Evaluation Name: CASA NIX Age: 72 yrs Gender: Male : 1945 Patient Status: Outpatient Patient Location: Study Date: 11/23/2017 02:47 PM Procedure: A color flow and duplex scan of the lower extremity arteries was performed bilaterally with velocity and waveform anaylsis. Reason For Study: LEFT HEEL ULCER Ordering Physician: VANITA LAZO Performed By: Omar Huddleston Measurements and Calculations Right Left SEAM TAPER MACHINE PSV 86.1 82.5 cm/sec Prox PFA PSV -60.4 -161.1 cm/sec Prox SFA PSV -67.2 82.0 cm/sec Mid SFA PSV -60.1 -90.8 cm/sec Dist SFA PSV -202.0 -60.4 cm/sec Prox Pop A PSV 76.1 40.2 cm/sec Prox BEST PSV 25.9 cm/sec Dist BEST PSV 68.4 36.1 cm/sec Prox EXECUTIVE PILOT PSV 46.5 cm/sec Dist EXECUTIVE PILOT PSV 13.4 16.7 cm/sec Ru Pedis PSV -9.1 -18.7 cm/sec Right Side Arterial Evaluation Normal velocity and triphasic waveforms noted in the Common Femoral artery. Biphasic in the Deep Femoral and from the distal Femoral to the infrageniculate vessels. 0-19% stenosis at the Femoral artery. Ankle Brachial index is 1.00. Left Side Arterial Evaluation Normal velocity and triphasic waveforms noted from the Common Femoral artery to the Popliteal. . Biphasic in the infrageniculate vessels Dorsalis Pedis. 0-19% stenosis at the infrageniculate vessels. With sequential disease. Ankle Brachial index could not be obtained, due to non compressibility. Interpretation Summary Mild hemodynamically significant lesions in the bilateral lower extremities, on duplex imaging, at rest. : VANITA LAZO > Guillermo Winter
== END ==
LOC: SP 14:35
PROVIDERS: ATTEND Nurse Practitioner
DX: L89.620 Pressure ulcer of left heel, unstageable (principal)
CPT/HCPCS: 93922; 93925